=== PATIENT | female | born 1985 | race Caucasian/White ===

== ENCOUNTER 2017-08-07 22:50 | Emergency (ER) | payer SELFPAY ==
[~2017-08-07] VITALS: Ht 154.9 cm; Wt 72.6 kg
[~2017-08-07 22:50] MED LIST: ALBU2.5V4 IH; ALPR.25T; AZIT-21 PO; BENZ100C18 PO; CEPH-38 PO; CEPH500C PO; CIPR-225 PO; CIPR500T78 PO; CPR250T PO; CYCL10TA9 PO; D-ME118S7 PO; DEPO PROVERA; DEPOPROVERA; DIPH50CA PO; Flexeril PO; HYDR1CAP2 PO; METR250T PO; METR500T PO; NAPR500T PO; NAPR500T3 PO; NAPR550T PO; NYST1000 PO; OMG1KC PO; ONDAN4ODT PO; ORTHOTRICYCLINE; PANT40TA2 PO; PERM60CR4 TP; PHEN-640 PO; PNT40TEC PO; POLY119P PO; PRD20T PO; SCR1T PO; SUCR1TAB36 PO; SULF-222 PO; SULF1TAB35 PO; SULF1TAB38 PO; TRAM50TA2 PO; TRM50T PO; ZLP5T PO
--- NOTE | 2017-08-07 23:13 | ED Back Pain ---
General Chief Complaint: Back Problems Stated Complaint: LOW BACK PAIN Source of Information: Patient Exam Limitations: No Limitations History of Present Illness Time Seen by Provider: 23:12 Initial Comments To ER with several months of bilateral flank pain, radiates down the back of her legs, urinary incontinence when laughing or sneezing, 1 week of whitish vaginal discharge. Nausea without vomiting. States that she should be starting her menstrual cycle soon. Denies any abdominal pain. Timing/Duration: Getting Worse, Intermittent Severity: Moderate Associated Symptoms: lower back pain Allergies and Home Medications Allergies Coded Allergies: Sulfa (Sulfonamide Antibiotics) (Verified Allergy, Mild, 06/13/16) codeine (Unverified Allergy, Unknown, 04/11/14) hydrocodone (Unverified Allergy, Unknown, 04/11/14) meperidine HCl (Unverified Allergy, Unknown, 04/11/14) morphine (Verified Allergy, Unknown, 05/02/11) Home Medications Ciprofloxacin HCl 500 Mg Tablet, 500 MG PO BID, #20 Prescribed by: MINERVA SCHWAB on 06/14/16 0029 Cyclobenzaprine HCl 10 Mg Tablet, 10 MG PO Q8H, #15 Prescribed by: MINERVA SCHWAB on 06/14/16 0029 Cyclobenzaprine HCl 5 Mg Tablet, 5 MG PO TID PRN for PAIN-MODERATE, #20 Prescribed by: BLAZE CHINCHILLA on 08/07/17 2331 Pantoprazole Sodium 40 Mg Tablet.dr, 40 MG PO DAILY, #14 Prescribed by: BLAZE CHINCHILLA on 08/08/16 1311 Phenazopyridine HCl 200 Mg Tablet, 1 TAB PO TID, #15 Prescribed by: MINERVA SCHWAB on 06/14/16 0029 Sucralfate 1 Gm Tablet, 1 GM PO ACHS, #40 Prescribed by: BLAZE CHINCHILLA on 08/08/16 1311 Sulfamethoxazole/Trimethoprim 1 Each Tablet, 1 EACH PO BID, #14 Prescribed by: TIMUR GANN on 04/05/16 0053 Constitutional: see HPI, No chills, No fever EENTM: see HPI Respiratory: no symptoms reported Cardiovascular: no symptoms reported Genitourinary: incontinence Musculoskeletal: see HPI, back pain Skin: no symptoms reported Psychiatric/Neurological: No Symptoms Reported Past [id number]-Zkqmrm Hx Patient Social History Recent Foreign Travel: No Contact w/Someone Who Travel: No Immunizations Up To Date Tetanus Booster (TDap): Less than 5yrs Seasonal Allergies Seasonal Allergies: No Surgeries Surgeries: Section, Gallbladder, 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 Respiratory Respiratory Disorders: Asthma Cardiovascular Cardiac Disorders: Chronic Edema/Swelling Neurological Neurological Disorders: Headaches /Migraines 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 System Hx 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 Disorders: No Sexually Transmitted Disease: Yes (TRICH) STAFF INTERNIST OFFICE BASED ONLY History: 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 Genitourinary Genitourinary Disorders: Kidney Stones, UTI-Chronic Gastrointestinal Gastrointestinal Disorders: Gastroesophageal Reflux, Chronic Constipation Physical Exam Vital Signs Capillary Refill : General Appearance: No Apparent Distress, WD/WN HEENT: PERRL/EOMI, TMs Normal Neck: Full Range of Motion, Normal Inspection Cardiovascular: Regular Rate, Rhythm, Normal Peripheral Pulses Respiratory: Normal Breath Sounds, No Accessory Muscle Use, No Respiratory Distress Gastrointestinal: Normal Bowel Sounds, No Pulsatile Mass, Non Tender, Soft Genital/Rectal: Other (pelvic exam done with DON Howe at the bedside. Minimal amount of bloody discharge from the cervix. No cervical motion tenderness. ) Back: Normal Inspection, CVA Tenderness (L), CVA Tenderness (R) Extremity: Normal Capillary Refill, Normal Inspection Neurologic/Psychiatric: Alert, Oriented x3 Skin: Normal Color, Warm/Dry Progress/Results/Core Measures Results/Orders Lab Results Laboratory Tests Test 08/07/17 22:59 08/07/17 23:09 Range/Units White Blood Count 12.1 H 4.3-11.0 10^3/uL Red Blood Count 4.79 4.35-5.85 10^6/uL Hemoglobin 13.9 11.5-16.0 G/DL Hematocrit 41 35-52 % Mean Corpuscular Volume 86 80-99 FL Mean Corpuscular Hemoglobin 29 25-34 PG Mean Corpuscular Hemoglobin Concent 34 32-36 G/DL Red Cell Distribution Width 13.2 10.0-14.5 % Platelet Count 237 130-400 10^3/uL Mean Platelet Volume 10.5 H 7.4-10.4 FL Neutrophils (%) (Auto) 49 42-75 % Lymphocytes (%) (Auto) 37 12-44 % Monocytes (%) (Auto) 10 0-12 % Eosinophils (%) (Auto) 3 0-10 % Basophils (%) (Auto) 1 0-10 % Neutrophils # (Auto) 6.0 1.8-7.8 X 10^3 Lymphocytes # (Auto) 4.5 H 1.0-4.0 X 10^3 Monocytes # (Auto) 1.2 H 0.0-1.0 X 10^3 Eosinophils # (Auto) 0.4 H 0.0-0.3 10^3/uL Basophils # (Auto) 0.1 0.0-0.1 10^3/uL Urine Color YELLOW Urine Clarity SLIGHTLY CLOUDY Urine pH 6 5-9 Urine Specific [place] 1.025 H 1.016-1.022 Urine Protein 1+ H NEGATIVE Urine Glucose (UA) NEGATIVE NEGATIVE Urine Ketones NEGATIVE NEGATIVE Urine Nitrite NEGATIVE NEGATIVE Urine Bilirubin NEGATIVE NEGATIVE Urine Urobilinogen 1 NORMAL MG/DL Urine Leukocyte Esterase NEGATIVE NEGATIVE Urine RBC (Auto) 3+ H NEGATIVE Urine RBC 5-10 H /HPF Urine WBC 0-2 /HPF Urine Squamous Epithelial Cells 25-50 H /HPF Urine Crystals NONE /LPF Urine Bacteria FEW H /HPF Urine Casts NONE /LPF Urine Mucus NEGATIVE /LPF Urine Culture Indicated NO My Orders Orders - BLAZE CHINCHILLA APRN Ua Culture If Indicated (08/07/17 22:58) Urine Bedside (08/07/17 22:58) Cbc With Automated Diff (08/07/17 23:07) Basic Metabolic Panel (08/07/17 23:07) Saline Lock/Iv-Start (08/07/17 23:07) Ketorolac Injection (Toradol Injection) (08/07/17 23:15) Ns Iv 1000 Ml (Sodium Chloride 0.9%) (08/07/17 23:15) Wet Prep (08/07/17 23:07) Neisseria Gonorrhea Dna (08/07/17 23:07) Chlamydia Dna (08/07/17 23:07) Genital Culture (08/07/17 23:07) Medications Given in ED Current Medications Medications Dose Ordered Sig/Lolis Route Start Time Stop Time Status Last Admin Dose Admin Ketorolac Tromethamine 30 mg ONCE ONCE IVP 08/07/17 23:15 08/07/17 23:16 DC 08/07/17 23:16 30 MG Departure Impression Impression: Primary Impression: Low back pain Disposition: 01 HOME, SELF-CARE Condition: Stable Departure-Patient Inst. Decision time for Depature: 23:30 Referrals: NO,LOCAL PHYSICIAN (PCP/Family) Primary Care Physician Patient Instructions: Low Back Pain (DC) Add. Discharge Instructions: 1. Follow-up with your regular doctor next week. If you do not have one a list of local physicians has been provided 2. Return to ER for any concerns 3. All discharge instructions reviewed with patient and/or family. Voiced understanding. 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
[2017-08-07 23:15] LABS: BASOPHILS # (AUTO) 0.1 10^3/uL (0.0-0.1); BASOPHILS % (AUTO) 1 % (0-10); BILIRUBIN,URINE NEGATIVE (NEGATIVE); EOSINOPHILS # (AUTO) 0.4 10^3/uL (0.0-0.3); EOSINOPHILS % (AUTO) 3 % (0-10); KETONES,URINE NEGATIVE (NEGATIVE); LEUKOCYTE ESTERASE ,URINE NEGATIVE (NEGATIVE); LYMPHOCYTES # (AUTO) 4.5 X 10^3 (1.0-4.0); LYMPHOCYTES % (AUTO) 37 % (12-44); MEAN CORPUSCULAR HEMOGLOBIN 29 PG (25-34); MEAN CORPUSCULAR HGB CONC 34 G/DL (32-36); MEAN CORPUSCULAR VOLUME 86 FL (80-99); MEAN PLATELET VOLUME 10.5 FL (7.4-10.4); MONOCYTES # (AUTO) 1.2 X 10^3 (0.0-1.0); MONOCYTES % (AUTO) 10 % (0-12); NEUTROPHILS % (AUTO) 49 % (42-75); NITRITE,URINE NEGATIVE (NEGATIVE); PH,URINE 6 (5-9); PLATELET COUNT 237 10^3/uL (130-400); PROTEIN,URINE 1+ (NEGATIVE); RED BLOOD COUNT 4.79 10^6/uL (4.35-5.85); RED CELL DISTRIBUTION WIDTH 13.2 % (10.0-14.5); UROBILINOGEN,URINE 1 MG/DL (NORMAL); WHITE BLOOD COUNT 12.1 10^3/uL (4.3-11.0)
[2017-08-07] MEDS ORDERED: KETOROLAC 30 MG/ML VIAL IVP ONE (23:15)
[2017-08-07] MEDS ORDERED: NS IV 1000 ML 1,000 ML IV SCH (23:15)
[2017-08-07 23:26] LABS: SQUAMOUS EPITHELIAL CELL,UR 25-50 /HPF; WBC,URINE 0-2 /HPF
[2017-08-07] MEDS ORDERED: CYCL5TAB PO (23:31)
[2017-08-07 23:32] LABS: ANION GAP 10 MMOL/L (5-14); BLOOD UREA NITROGEN 13 MG/DL (7-18); BUN/CREATININE RATIO 20; CALCIUM 9.5 MG/DL (8.5-10.1); CARBON DIOXIDE 23 MMOL/L (21-32); CHLORIDE 105 MMOL/L (98-107); CREATININE SERUM 0.64 MG/DL (0.60-1.30); GFR ESTIMATED > 60; GLUCOSE 90 MG/DL (70-105); POTASSIUM 3.6 MMOL/L (3.6-5.0); SODIUM 138 MMOL/L (135-145)
[2017-08-07 23:53] VITALS: BP 132/86
== END 2017-08-07 23:53 | disposition home or self-care (01) ==
LOC: EDUNIT# 22:50 → ER 22:52
DX: M54.5 Low back pain (principal); K21.9 Gastro-esophageal reflux disease without esophagitis; G43.909 Migraine, unspecified, not intractable, without status migrainosus; Z87.442 Personal history of urinary calculi; Z98.51 Tubal ligation status; Z87.59 Personal history of other complications of pregnancy, childbirth and the puerperium
CPT/HCPCS: 36415; 80048; 81000; 84703; 85025; 87070; 87210; 87491; 87591

== ENCOUNTER 2018-02-04 20:28 | Emergency (ER) | payer SELFPAY ==
[~2018-02-04] VITALS: Ht 157.5 cm; Wt 70.3 kg
[~2018-02-04 20:28] MED LIST changes: +CYCL5TAB PO; +NAPR-1071 PO; +NAPR-915 PO; -NAPR500T PO; -NAPR500T3 PO
--- OUTSIDE RECORDS SUMMARY | 2018-02-04 20:34 | XMS REPORT ---
Author Author JABIER MACARIO Organization [facility] Address [address] [place] [address] Care Team Providers Care Mechanical Drafter Name Role Phone JABIER MACARIO Unavailable PROBLEMS Type Condition ICD9-CM Code ICQ43-OD Code Onset Dates Condition Status SNOMED Code Problem Adjustment disorder with depressed mood 309.0 Active 37990511 Problem Edema, unspecified type R60.9 Active 196934742 Problem Gastroesophageal reflux disease, esophagitis presence not specified K21.9 Active 476896791 Problem Lumbago with sciatica, unspecified side M54.40 Active 436679541 Problem Other chronic pain G89.29 Active 31428571 Problem Family history of diabetes mellitus Z83.3 Active 519483020 Problem Nocturia more than twice per night R35.1 Active 129243029 Problem Chronic tension-type headache, intractable G44.221 Active 510615364 Problem Weight gain R63.5 Active 9671595 ALLERGIES Substance Reaction Event Type Date Status Morphine Sulfate seizure Drug Allergy Aug, Active Demerol rash Drug Allergy Aug, Active SOCIAL HISTORY No smoking Hx information available PLAN OF CARE Activity Details Follow Up 1 Week, prn Reason: VITAL SIGNS Height 61 in 2016-09-26 Weight 161.04 lbs 2016-09-26 Temperature 97.6 degrees Fahrenheit 2016-09-26 Heart Rate 84 bpm 2016-09-26 Respiratory Rate 18 2016-09-26 BMI 30.42 kg/m2 2016-09-26 Blood pressure systolic 122 mmHg 2016-09-26 Blood pressure diastolic 68 mmHg 2016-09-26 MEDICATIONS Medication Instructions Dosage Frequency Start Date End Date Duration Status Metronidazole 500 MG Orally once 4 tablet Aug, Sep, 10 day(s) Active RESULTS Name Result Date Reference Range TRICHOMONAS (IN HOUSE) 2016-09-26 TRICHOMONAS Positive Control + Lot # [id number] Exp date 2017-04 UA LONG DIP (IN HOUSE) 2016-09-26 Lot # [id number] Exp date 2016-11 Clarity clear Color yellow Odor none GLU negative SYLVIA negative KET negative SG >1.030 BLO 2+ pH 6.0 Protein negative URO 0.2 NIT negative JOSE negative Lot # [id number] Exp date 2017-05 BACTERIAL VAGINOSIS (IN HOUSE) 2016-09-26 RESULTS negative Control + Lot # [id number] Exp date 2017-06 CULTURE, GENITAL 2016-09-26 Genital Culture, Routine Final report Result 1 GC/CHLAM PROBE (STATE) 2016-09-26 CHLAMYDIA GC PROCEDURES Procedure Date Ordered Related Diagnosis Body Site No Charge Sep 26, 2016 QUICK VAG, DNA, DIR PROBE Sep 26, 2016 URINALYSIS, AUTO, W/O SCOPE Sep 26, 2016 LAB NOT BILLED BY [facility] Sep 26, 2016 Office Visit, Est Pt., Level 3 Sep 26, 2016 IMMUNIZATIONS No Known Immunizations
--- OUTSIDE RECORDS SUMMARY | 2018-02-04 20:35 | XMS REPORT ---
Author Author JABIER MACARIO Organization [facility] Address [address] [place] [address] Care Team Providers Care Mop Handle Assembler Name Role Phone JABIER MACARIO Unavailable PROBLEMS Type Condition ICD9-CM Code [id number] Code Onset Dates Condition Status SNOMED Code Problem Adjustment disorder with depressed mood 309.0 Active 32103802 Problem Nocturia more than twice per night R35.1 Active 698726778 Problem Gastroesophageal reflux disease, esophagitis presence not specified K21.9 Active 737634687 Problem Chronic tension-type headache, intractable G44.221 Active 914578350 Problem Other chronic pain G89.29 Active 63698067 Problem Weight gain R63.5 Active 1862702 Problem Edema, unspecified type R60.9 Active 688236555 Problem Lumbago with sciatica, unspecified side M54.40 Active 697755403 Problem Family history of diabetes mellitus Z83.3 Active 895518570 ALLERGIES Substance Reaction Event Type Date Status SulfADIAZINE Unknown Drug Allergy Nov, Active Morphine Sulfate seizure Drug Allergy Nov, Active Demerol rash Drug Allergy Nov, Active SOCIAL HISTORY No smoking Hx information available PLAN OF CARE Activity Details Follow Up 1 Year, prn Reason: VITAL SIGNS Height 61 in 2016-12-01 Weight 161 lbs 2016-12-01 Temperature 98.0 degrees Fahrenheit 2016-12-01 Heart Rate 80 bpm 2016-12-01 Respiratory Rate 18 2016-12-01 BMI 30.42 kg/m2 2016-12-01 Blood pressure systolic 118 mmHg 2016-12-01 Blood pressure diastolic 78 mmHg 2016-12-01 MEDICATIONS Medication Instructions Dosage Frequency Start Date End Date Duration Status Hydrochlorothiazide 25 MG Orally Once a day 1 tablet 24h Nov, 30 day(s) Active Protonix 40 mg Orally Once a day 1 tablet 24h Oct, 30 day(s) Active Aleve 220 MG Orally every 12 hrs 1 tablet as needed 12h Active RESULTS Name Result Date Reference Range A1C (IN HOUSE) 2016-12-01 A1C IN HOUSE 5.2 4.3 - 5.6 % Previous A1c N/A Lot [id number] Exp date 08/2018 UA LONG DIP (IN HOUSE) 2016-12-01 Lot # [id number] Exp date 10/2017 Clarity clear Color orange Odor none GLU Neg SYLVIA Neg KET Neg SG 1.025 BLO 2+ pH 6.0 Protein Neg URO 1.0 NIT Neg JOSE Neg Lot # Exp date PROCEDURES Procedure Date Ordered Related Diagnosis Body Site URINALYSIS, AUTO, W/O SCOPE Dec 01, 2016 GLYCATED HEMOGLOBIN TEST Dec 01, 2016 Office Visit, Est Pt., Level 4 Dec 01, 2016 IMMUNIZATIONS No Known Immunizations
--- OUTSIDE RECORDS SUMMARY | 2018-02-04 20:35 | XMS REPORT ---
Author Author JABIER MACARIO Organization [facility] Address [address] [place] [address] Care Team Providers Care Senior Sustainability Consultant Name Role Phone RENALDO JABEIR Unavailable PROBLEMS Type Condition ICD9-CM Code [id number] Code Onset Dates Condition Status SNOMED Code Problem Adjustment disorder with depressed mood 309.0 Active 91289808 Problem Nocturia more than twice per night R35.1 Active 705446434 Problem Gastroesophageal reflux disease, esophagitis presence not specified K21.9 Active 736391006 Problem Chronic tension-type headache, intractable G44.221 Active 210272614 Problem Other chronic pain G89.29 Active 96629347 Problem Weight gain R63.5 Active 4207338 Problem Edema, unspecified type R60.9 Active 920027364 Problem Lumbago with sciatica, unspecified side M54.40 Active 458161962 Problem Family history of diabetes mellitus Z83.3 Active 049441169 ALLERGIES Substance Reaction Event Type Date Status SulfADIAZINE Unknown Drug Allergy Oct, Active Morphine Sulfate seizure Drug Allergy Oct, Active Demerol rash Drug Allergy Oct, Active SOCIAL HISTORY No smoking Hx information available PLAN OF CARE VITAL SIGNS MEDICATIONS Medication Instructions Dosage Frequency Start Date End Date Duration Status Protonix 40 MG Orally Once a day 1 tablet 24h Oct, 30 day(s) Active RESULTS No Results PROCEDURES No Known procedures IMMUNIZATIONS No Known Immunizations
--- OUTSIDE RECORDS SUMMARY | 2018-02-04 20:35 | XMS REPORT ---
Author Author JABIER MACARIO Organization [facility] Address [address] [place] [address] Care Team Providers Care Terrazzo Polisher Helper Name Role Phone JENNIFER MACARIONETTE Unavailable PROBLEMS Type Condition ICD9-CM Code ZLP26-MY Code Onset Dates Condition Status SNOMED Code Problem Adjustment disorder with depressed mood 309.0 Active 88680075 Problem Nocturia more than twice per night R35.1 Active 798357660 Problem Gastroesophageal reflux disease, esophagitis presence not specified K21.9 Active 440005451 Problem Chronic tension-type headache, intractable G44.221 Active 217937590 Problem Other chronic pain G89.29 Active 53077846 Problem Weight gain R63.5 Active 7281003 Problem Edema, unspecified type R60.9 Active 402838407 Problem Lumbago with sciatica, unspecified side M54.40 Active 733781865 Problem Family history of diabetes mellitus Z83.3 Active 801069895 ALLERGIES Unknown Allergies SOCIAL HISTORY No smoking Hx information available PLAN OF CARE VITAL SIGNS MEDICATIONS Unknown Medications RESULTS Name Result Date Reference Range CBC 2016-12-05 WBC 9.5 3.4-10.8 RBC 4.92 3.77-5.28 Hemoglobin 14.2 11.1-15.9 Hematocrit 42.0 34.0-46.6 MCV 85 79-97 MCH 28.9 26.6-33.0 MCHC 33.8 31.5-35.7 RDW 13.5 12.3-15.4 Platelets 245 150-379 Neutrophils 60 Lymphs 29 Monocytes 7 Eos 3 Basos 1 Neutrophils (Absolute) 5.8 1.4-7.0 Lymphs (Absolute) 2.7 0.7-3.1 Monocytes(Absolute) 0.7 0.1-0.9 Eos (Absolute) 0.3 0.0-0.4 Baso (Absolute) 0.1 0.0-0.2 Immature Granulocytes 0 Immature Grans (Abs) 0.0 0.0-0.1 LIPID PANEL 2016-12-05 Cholesterol, Total 182 100-199 Triglycerides 66 0-149 HDL Cholesterol 45 >39 VLDL Cholesterol Osmany 13 5-40 LDL Cholesterol Calc 124 0-99 Comment: CMP 2016-12-05 Glucose, Serum 93 65-99 BUN 11 6-20 Creatinine, Serum 0.56 0.57-1.00 eGFR If NonAfricn Am 123 >59 eGFR If Africn Am 142 >59 BUN/Creatinine Ratio 20 8-20 Sodium, Serum 138 134-144 Potassium, Serum 4.1 3.5-5.2 Chloride, Serum 100 96-106 Carbon Dioxide, Total 22 18-29 Calcium, Serum 9.3 8.7-10.2 Protein, Total, Serum 6.6 6.0-8.5 Albumin, Serum 4.0 3.5-5.5 Globulin, Total 2.6 1.5-4.5 A/G Ratio 1.5 1.1-2.5 Bilirubin, Total 0.4 0.0-1.2 Alkaline Phosphatase, S 87 39-117 AST (SGOT) 10 0-40 ALT (SGPT) 8 0-32 PROCEDURES Procedure Date Ordered Related Diagnosis Body Site [facility] Dec 05, 2016 VENIPUNCT, ROUTINE* Dec 05, 2016 IMMUNIZATIONS No Known Immunizations
--- OUTSIDE RECORDS SUMMARY | 2018-02-04 20:36 | XMS REPORT ---
Author Author JABIER MACARIO Organization [facility] Address [address] [place] [address] Care Team Providers Care Inside Sales Coordinator Name Role Phone JENNIFER MACARIONETTE Unavailable PROBLEMS Type Condition ICD9-CM Code [id number] Code Onset Dates Condition Status SNOMED Code Problem Adjustment disorder with depressed mood 309.0 Active 61758358 Problem Nocturia more than twice per night R35.1 Active 083188626 Problem Gastroesophageal reflux disease, esophagitis presence not specified K21.9 Active 120970923 Problem Chronic tension-type headache, intractable G44.221 Active 329825303 Problem Other chronic pain G89.29 Active 85450317 Problem Weight gain R63.5 Active 4998389 Problem Edema, unspecified type R60.9 Active 256714323 Problem Lumbago with sciatica, unspecified side M54.40 Active 871154993 Problem Family history of diabetes mellitus Z83.3 Active 263060441 ALLERGIES No Information SOCIAL HISTORY Never Assessed PLAN OF CARE VITAL SIGNS MEDICATIONS Unknown Medications RESULTS Name Result Date Reference Range Xray : Spine, Lumbar 2-3 views (IN HOUSE) 2016-12-07 PROCEDURES Procedure Date Ordered Result Body Site X-RAY EXAM OF LOWER SPINE Dec 07, 2016 IMMUNIZATIONS No Known Immunizations MEDICAL (GENERAL) HISTORY Type Description Date Surgical History 10/08/2001 Surgical History 10/06/2003 Surgical History 07/18/2005 Surgical History 05/12/2008 Surgical History 09/27/2010 Surgical History biateral tubal ligation 08/16/2011 Surgical History cholysystectomy 08/16/2011 Hospitalization History Surgery(s)/Childbirth(s) only
--- OUTSIDE RECORDS SUMMARY | 2018-02-04 20:36 | XMS REPORT ---
Author Author JABIER MACARIO Organization [facility] Address [address] [place] [address] Care Team Providers Care Hotel Office Manager Name Role Phone JABIER MACARIO Unavailable PROBLEMS Type Condition ICD9-CM Code [id number] Code Onset Dates Condition Status SNOMED Code Problem Adjustment disorder with depressed mood 309.0 Active 05418564 Problem Nocturia more than twice per night R35.1 Active 764439757 Problem Gastroesophageal reflux disease, esophagitis presence not specified K21.9 Active 199478817 Problem Chronic tension-type headache, intractable G44.221 Active 945507442 Problem Other chronic pain G89.29 Active 26376042 Problem Weight gain R63.5 Active 4768053 Problem Edema, unspecified type R60.9 Active 873158942 Problem Lumbago with sciatica, unspecified side M54.40 Active 703285776 Problem Family history of diabetes mellitus Z83.3 Active 798979349 ALLERGIES Unknown Allergies SOCIAL HISTORY No smoking Hx information available PLAN OF CARE VITAL SIGNS MEDICATIONS Unknown Medications RESULTS No Results PROCEDURES No Known procedures IMMUNIZATIONS No Known Immunizations
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
--- NOTE | 2018-02-04 22:02 | Diagnostic Imaging Report ---
PROCEDURE: CT head without contrast. TECHNIQUE: Multiple contiguous axial images were obtained through the brain without the use of intravenous contrast. INDICATION: Left-sided numbness EXAMINATION: CT brain without contrast 02/04/2018 COMPARISONS: No recent FINDINGS: Multiple axial images of the brain without contrast. There is no evidence for acute hemorrhage or infarct. There is no mass, mass effect, midline shift or hydrocephalus. The paranasal sinuses and mastoid air cells demonstrate no acute abnormality. IMPRESSION: No acute intracranial process. Dictated by: Dictated on workstation # [id number]
[2018-02-04] MEDS ORDERED: FLUT9.9S NS (22:53)
[2018-02-04 23:02] VITALS: BP 113/60
== END 2018-02-04 22:59 | disposition home or self-care (01) ==
LOC: EDUNIT# 20:28 → ER 20:30
DX: G50.9 Disorder of trigeminal nerve, unspecified (principal); K21.9 Gastro-esophageal reflux disease without esophagitis; G43.909 Migraine, unspecified, not intractable, without status migrainosus; F17.210 Nicotine dependence, cigarettes, uncomplicated; Z87.442 Personal history of urinary calculi; Z87.59 Personal history of other complications of pregnancy, childbirth and the puerperium; Z98.51 Tubal ligation status; Z88.2 Allergy status to sulfonamides; Z88.6 Allergy status to analgesic agent; Z88.8 Allergy status to other drugs, medicaments and biological substances
CPT/HCPCS: 70450

== ENCOUNTER 2018-12-04 21:19 | Emergency (ER) | payer OTHER ==
[~2018-12-04] VITALS: Ht 154.9 cm; Wt 74.8 kg
[~2018-12-04 21:19] MED LIST changes: +FLUT9.9S NS
[2018-12-04] MEDS ORDERED: PANT40TA3 (21:29)
[2018-12-04 21:37] LABS: BILIRUBIN,URINE NEGATIVE (NEGATIVE); CLARITY,URINE CLEAR; COLOR,URINE YELLOW; GLUCOSE, URINE (UA) NEGATIVE (NEGATIVE); KETONES,URINE NEGATIVE (NEGATIVE); LEUKOCYTE ESTERASE ,URINE NEGATIVE (NEGATIVE); NITRITE,URINE NEGATIVE (NEGATIVE); PH,URINE 7 (5-9); PROTEIN,URINE NEGATIVE (NEGATIVE); UROBILINOGEN,URINE NORMAL (NORMAL)
[2018-12-04 21:51] LABS: BACTERIA,URINE FEW /HPF; RBC,URINE 0-2 /HPF; WBC,URINE RARE /HPF
[2018-12-04] MEDS ORDERED: RX-TRAMADOL 50 MG (ULTRAM) TAB PPK#4 PO STA (22:32)
--- NOTE | 2018-12-04 22:36 | ED GI ---
General Chief Complaint: Abdominal/GI Problems Stated Complaint: R SIDE PAIN Nursing Triage Note: intermittant rlq abdominal pain, diarrhea x 5 days. Sepsis Screen: No Definite Risk History of Present Illness Date Seen by Provider: Dec 04, 2018 Time Seen by Provider: 21:30 Initial Comments 33-year-old female presents for right lower quadrant and flank pain. She reports the symptoms being present since 11/29/18. She was evaluated 3 days ago at [facility] for the RLQ pain and told she had pharyngitis and was given an IM injection. She has a history of endometriosis. She denies UTI symptoms. She has been taking Tylenol and ibuprofen with control of her symptoms. Timing/Duration: 5-6 Days Severity/Quality: Mild Location: RLQ Radiation: Flank Activities at Onset: None Associated Symptoms: Denies Symptoms Allergies and Home Medications Allergies Coded Allergies: Sulfa (Sulfonamide Antibiotics) (Verified Allergy, Mild, 06/13/16) codeine (Unverified Allergy, Unknown, 04/11/14) hydrocodone (Unverified Allergy, Unknown, 04/11/14) meperidine HCl (Unverified Allergy, Unknown, 04/11/14) morphine (Verified Allergy, Unknown, 05/02/11) Patient Home Medication List Home Medication List Reviewed: Yes Review of Systems Review of Systems Constitutional: no symptoms reported Gastrointestinal: See HPI, Abdominal Pain Genitourinary: See HPI, Flank Pain All Other Systems Reviewed Negative Unless Noted: Yes Past Vsqrigj-Asentt-Ybmjwv Hx Past Med/Social Hx: Reviewed Nursing Past Med/Soc Hx Patient Social History Alcohol Use: Denies Use Recreational Drug Use: No Smoking Status: Current Everyday Smoker Type Used: Cigarettes 2nd Hand Smoke Exposure: Yes Recent Foreign Travel: No Contact w/Someone Who Travel: No Recent Infectious Disease Expo: No Recent Hopitalizations: No Immunizations Up To Date Tetanus Booster (TDap): Less than 5yrs Seasonal Allergies Seasonal Allergies: Yes Past Medical History Surgeries: Yes Section, Gallbladder, 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 Respiratory: Yes Asthma Cardiac: Yes Chronic Edema/Swelling Neurological: Yes Headaches /Migraines : No 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 oz. 74.075476nv; 29.09 BMI Method:Stated General Appearance: WD/WN, no apparent distress HEENT: PERRL/EOMI, normal ENT inspection, TMs normal, pharyngeal erythema ( trace); No tonsillar exudate Neck: non-tender, full range of motion, supple, normal inspection, lymphadenopathy (R), lymphadenopathy (L) Respiratory: chest non-tender, lungs clear, normal breath sounds Cardiovascular: normal peripheral pulses, regular rate, rhythm Gastrointestinal: normal bowel sounds, soft; No guarding, No rebound; tenderness (tenderness in the very distal right lower quadrant, right flank and hip. Negative psoas, heel tap and obturator sign.) Extremities: normal range of motion, non-tender, normal inspection, normal capillary refill Back: normal inspection, no CVA tenderness, no vertebral tenderness Neurologic/Psychiatric: no motor/sensory deficits, alert, normal mood/affect, oriented x 3 Skin: normal color, warm/dry Progress/Results/Core Measures Results/Orders Lab Results Laboratory Tests Test 12/04/18 21:30 Range/Units Urine Color YELLOW Urine Clarity CLEAR Urine pH 7 5-9 Urine Specific Narvon 1.010 L 1.016-1.022 Urine Protein NEGATIVE NEGATIVE Urine Glucose (UA) NEGATIVE NEGATIVE Urine Ketones NEGATIVE NEGATIVE Urine Nitrite NEGATIVE NEGATIVE Urine Bilirubin NEGATIVE NEGATIVE Urine Urobilinogen NORMAL NORMAL MG/DL Urine Leukocyte Esterase NEGATIVE NEGATIVE Urine RBC (Auto) 3+ H NEGATIVE Urine RBC 0-2 /HPF Urine WBC RARE /HPF Urine Squamous Epithelial Cells 5-10 /HPF Urine Crystals NONE /LPF Urine Bacteria FEW H /HPF Urine Casts NONE /LPF Urine Mucus NEGATIVE /LPF Urine Culture Indicated NO My Orders Orders - MAXI PERLA Ua Culture If Indicated (12/04/18 21:19) Tramadol Tablet (Ultram Tablet) (12/04/18 21:56) Rx-Tramadol Hcl (Rx-Ultram) (12/04/18 22:32) Vital Signs/I&O 12/04/18 12/04/18 21:23 22:45 Temp 96.5 97.0 Pulse 91 88 Resp 18 18 B/P (MAP) 127/64 (85) 125/62 (83) Pulse Ox 98 99 O2 Delivery Room Air Room Air Blood Pressure Mean: 85 Urine -Bedside: Negative Progress Progress Note : Time: 21:30 Progress Note Initial evaluation completed, recommended UA. 2200 UA essentially normal. We'll give tramadol 50 mg by mouth for pain. No ultrasound services are available at this time. 223 patient reports improvement in her symptoms after the tramadol, since she is afebrile and has no rebound tenderness a CT is not warranted at this time. Explained to the patient that it could be mesenteric adenitis from her recent upper respiratory infection or endometriosis with ovarian cysts. Discussed options and her treatment at this point and she is comfortable returning home with follow-up through Dr. Gordon and possible referral to ultrasound tomorrow. Discharge instructions and return precautions reviewed with her. If her symptoms worsen she understands to return to the emergency department. Departure Impression Primary Impression: Pain, abdominal, RLQ Disposition: HOME, SELF-CARE Condition: Improved Departure-Patient Inst. Decision time for Depature: 22:05 Referrals: [facility] (PCP/Family) Primary Care Physician Patient Instructions: Acute Abdomen (Belly Pain), Adult (DC), Ovarian Cyst (DC) Add. Discharge Instructions: Activity as tolerated. Increase water intake. If symptoms are not improving, call Dr. Gordon tomorrow for reevaluation and consideration of an ultrasound. If symptoms worsen significantly, return to emergency department. You may take the Ultram every 6 hours. Additional pain can be managed with Tylenol 625 mg alternating with ibuprofen 600 mg. every 4 hours All discharge instructions reviewed with patient and/or family. Voiced understanding. MAXI PERLA Dec 04, 2018 22:36
[2018-12-04 22:45] VITALS: BP 125/62
== END 2018-12-04 22:43 | disposition home or self-care (01) ==
LOC: EDUNIT# 21:19 → ER 21:20
DX: R10.31 Right lower quadrant pain (principal); J45.909 Unspecified asthma, uncomplicated; G43.909 Migraine, unspecified, not intractable, without status migrainosus; K21.9 Gastro-esophageal reflux disease without esophagitis; F17.210 Nicotine dependence, cigarettes, uncomplicated; Z87.442 Personal history of urinary calculi; Z87.19 Personal history of other diseases of the digestive system; Z98.890 Other specified postprocedural states; Z98.51 Tubal ligation status; Z88.2 Allergy status to sulfonamides; Z88.5 Allergy status to narcotic agent; Z88.8 Allergy status to other drugs, medicaments and biological substances; Z87.448 Personal history of other diseases of urinary system
CPT/HCPCS: 81000; 84703; 99283

== ENCOUNTER 2019-07-10 19:59 | Emergency (ER) | payer OTHER ==
[~2019-07-10] VITALS: Ht 154 cm; Wt 72.0 kg
[~2019-07-10 19:59] MED LIST changes: +PANT40TA3
[2019-07-10] MEDS ORDERED: D-ME118S33 PO (20:20)
[2019-07-10] MEDS ORDERED: RT-ALBUINH IH (20:20)
[2019-07-10] MEDS ORDERED: RX-ALBUTEROL INHALER (PROAIR) 8.5 GM IH STA (20:20)
--- NOTE | 2019-07-10 20:20 | ED Cough/URI ---
General Chief Complaint: Cough/Cold/Flu Symptoms Stated Complaint: COUGH, COLD LIKE SYMPTOMS Nursing Triage Note: ARRIVED VIA AMB TO TRIAGE WITH COMPLAINTS OF A HEAD COLD X1 WEEK. Sepsis Screen: No Definite Risk Source: patient Exam Limitations: no limitations History of Present Illness Date Seen by Provider: Jul 10, 2019 Time Seen by Provider: 20:18 Initial Comments Nonproductive cough and rhinorrhea for 2 weeks Timing/Duration: other Severity/Quality: moderate Associated Symptoms: cough Allergies and Home Medications Allergies Coded Allergies: Sulfa (Sulfonamide Antibiotics) (Verified Allergy, Mild, 06/13/16) codeine (Unverified Allergy, Unknown, 04/11/14) hydrocodone (Unverified Allergy, Unknown, 04/11/14) meperidine HCl (Unverified Allergy, Unknown, 04/11/14) morphine (Verified Allergy, Unknown, 05/02/11) Home Medications Albuterol Sulfate 1 Puff Puff, 2 PUFF IH Q4H PRN for WHEEZING 1 PUFF = 90 MCG Prescribed by: BLAZE CHINCHILLA on 07/10/192019 D-Methorphan Hb/P-Epd HCl/Bpm 118 Ml Syrup, 5 ML PO Q4H PRN for CONGESTION Prescribed by: BLAZE CHINCHILLA on 07/10/192019 Patient Home Medication List Home Medication List Reviewed: Yes Review of Systems Review of Systems Constitutional: see HPI, chills EENTM: see HPI, nose congestion Respiratory: see HPI, cough Cardiovascular: no symptoms reported Genitourinary: no symptoms reported Musculoskeletal: no symptoms reported Skin: no symptoms reported Psychiatric/Neurological: No Symptoms Reported Hematologic/Lymphatic: No Symptoms Reported Past Aogfcow-Qmkgln-Sszqrf Hx Patient Social History Alcohol Use: Denies Use Recreational Drug Use: No Smoking Status: Current Everyday Smoker Type Used: Cigarettes 2nd Hand Smoke Exposure: Yes Recent Foreign Travel: No Contact w/Someone Who Travel: No Recent Infectious Disease Expo: No Recent Hopitalizations: No Immunizations Up To Date Tetanus Booster (TDap): Less than 5yrs Seasonal Allergies Seasonal Allergies: Yes Past Medical History Surgeries: Yes Section, Gallbladder, 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 Respiratory: Yes Asthma Cardiac: Yes Chronic Edema/Swelling Neurological: Yes Headaches /Migraines 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 oz. 74.657051vu; 30.00 BMI Method:Stated General Appearance: WD/WN, no apparent distress Eyes: Bilateral Eye Normal Inspection, Bilateral Eye PERRL HEENT: PERRL/EOMI, normal ENT inspection Neck: non-tender, full range of motion Respiratory: no respiratory distress, no accessory muscle use Cardiovascular: regular rate, rhythm, no murmur Gastrointestinal: normal bowel sounds, non tender Extremities: normal range of motion, non-tender Neurologic/Psychiatric: alert, normal mood/affect, oriented x 3 Skin: normal color, warm/dry Progress/Results/Core Measures Suspected Sepsis Recent Fever Within 48 Hours: No Infection Criteria Present: Suspected New Infection New/Unexplained Altered Menta: No Sepsis Screen: No Definite Risk SIRS Temperature: Pulse: 91 Respiratory Rate: 16 Blood Pressure 126 /83 Mean: 97 Results/Orders My Orders Orders - BLAZE CHINCHILLA APRN Chest Pa/Lat (2 View) (07/10/19 20:20) Rx-Albuterol Inhaler (Rx-Proair) (07/10/19 20:20) Vital Signs/I&O 07/10/19 20:09 Temp 37.1 Pulse 91 Resp 16 B/P (MAP) 126/83 (97) Pulse Ox 97 O2 Delivery Room Air Capillary Refill : Less Than 3 Seconds Blood Pressure Mean: 97 Departure Impression Primary Impression: Upper respiratory infection Disposition: 01 HOME, SELF-CARE Condition: Stable Departure-Patient Inst. Decision time for Depature: 20:19 Referrals: [facility] (PCP/Family) Primary Care Physician Patient Instructions: Cough, Adult (DC) Add. Discharge Instructions: 1. Return here for any concerns 2. Follow-up with your doctor tomorrow. All discharge instructions reviewed with patient and/or family. Voiced understanding. Scripts Prednisone (Prednisone) 20 Mg Tab 40 MG PO DAILY, #6 TAB 0 Refills Prov: BLAZE CHINCHILLA APRN 07/10/19 Albuterol Sulfate (PROAIR HFA) 1 Puff Puff 2 PUFF IH Q4H PRN for WHEEZING, #1 PUFF 1 PUFF = 90 MCG Prov: BLAZE CHINCHILLA APRN 07/10/19 D-Methorphan Hb/P-Epd HCl/Bpm (Bromfed Dm Cough Syrup) 118 Ml Syrup 5 ML PO Q4H PRN for CONGESTION for 7 Days, #118 ML Prov: BLAZE CHINCHILLA APRN 07/10/19 BLAZE CHINCHILLA APRN Jul 10, 2019 20:20
[2019-07-10] MEDS ORDERED: PRD20T PO (20:42)
[2019-07-10 20:47] VITALS: BP 123/80
--- NOTE | 2019-07-10 20:48 | Diagnostic Imaging Report ---
INDICATION: Cough. FINDINGS: Lungs appear clear without focal infiltrate or evidence of an effusion. There is no pneumothorax. Heart size and mediastinal contours are appropriate and pulmonary vascularity appears normal. There is no acute or suspicious osseous abnormality. IMPRESSION: No radiographic evidence of an acute cardiopulmonary process. Dictated by: Dictated on workstation # [id number]
== END 2019-07-10 20:47 | disposition home or self-care (01) ==
LOC: EDUNIT# 19:59 → ER 20:00
DX: J06.9 Acute upper respiratory infection, unspecified (principal); J45.909 Unspecified asthma, uncomplicated; G43.909 Migraine, unspecified, not intractable, without status migrainosus; K21.9 Gastro-esophageal reflux disease without esophagitis; F17.210 Nicotine dependence, cigarettes, uncomplicated; Z87.19 Personal history of other diseases of the digestive system; Z87.440 Personal history of urinary (tract) infections; Z87.442 Personal history of urinary calculi; Z88.2 Allergy status to sulfonamides; Z88.5 Allergy status to narcotic agent; Z88.6 Allergy status to analgesic agent; Z98.51 Tubal ligation status
CPT/HCPCS: 71046

== ENCOUNTER 2019-08-11 20:31 | Emergency (ER) | payer OTHER ==
[~2019-08-11] VITALS: Ht 162 cm; Wt 65.0 kg
[~2019-08-11 20:31] MED LIST changes: +D-ME118S33 PO; +RT-ALBUINH IH
--- NOTE | 2019-08-11 21:09 | ED Lower Extremity ---
General Chief Complaint: Lower Extremity Stated Complaint: FALL,R KNEE PAIN Nursing Triage Note: PT PRESENTS TO THE ED AFTER SUFFERING A FALL AT WORK AT 0830, PT STATES SHE FELL FROM A STANDING POSITION , LANDED ON BOTH KNEES BUT THE R KNEE IS REPORTED HAVING MORE PAIN AND INTOLERANCE TO CLIMBING STAIRS. Nursing Sepsis Screen: No Definite Risk Source: patient Exam Limitations: no limitations History of Present Illness Date Seen by Provider: Aug 11, 2019 Time Seen by Provider: 20:29 Initial Comments Patient presents to ER by private conveyance with chief complaint that at 8:30 this morning she fell forward onto her knees while at work. 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 She struck both of her knees with her right knee is having considerable pain with walking. No previous injuries or surgeries to her knees. She does not strike her head nor lose consciousness. She does not take any medication. She has had tubal ligation. She has used ibuprofen this morning about 9:00 and again at 4:00 in the afternoon. She doesn't want anything for pain at this time. No numbness or tingling. Allergies and Home Medications Allergies Coded Allergies: Sulfa (Sulfonamide Antibiotics) (Verified Allergy, Mild, 06/13/16) codeine (Unverified Allergy, Unknown, 04/11/14) hydrocodone (Unverified Allergy, Unknown, 04/11/14) meperidine HCl (Unverified Allergy, Unknown, 04/11/14) morphine (Verified Allergy, Unknown, 05/02/11) Home Medications Albuterol Sulfate 1 Puff Puff, 2 PUFF IH Q4H PRN for WHEEZING 1 PUFF = 90 MCG Prescribed by: BLAZE CHINCHILLA on 07/10/192019 D-Methorphan Hb/P-Epd HCl/Bpm 118 Ml Syrup, 5 ML PO Q4H PRN for CONGESTION Prescribed by: BLAZE CHINCHILLA on 07/10/192019 Prednisone 20 Mg Tab, 40 MG PO DAILY Prescribed by: BLAZE CHINCHILLA on 07/10/192041 Patient Home Medication List Home Medication List Reviewed: Yes Review of Systems Constitutional: No chills, No diaphoresis EENTM: No ear discharge, No ear pain Respiratory: No cough, No short of breath Cardiovascular: No chest pain, No edema Gastrointestinal: No abdominal pain, No constipation, No diarrhea Genitourinary: No decreased output, No discharge : No (tubal ligation) Past Saterod-Tdnnxx-Knndwh Hx Patient Social History Alcohol Use: Denies Use Recreational Drug Use: No Smoking Status: Current Everyday Smoker Type Used: Cigarettes 2nd Hand Smoke Exposure: Yes Recent Foreign Travel: No Contact w/Someone Who Travel: No Recent Infectious Disease Expo: No Recent Hopitalizations: No Immunizations Up To Date Tetanus Booster (TDap): Less than 5yrs Seasonal Allergies Seasonal Allergies: Yes Past Medical History Surgeries: Yes Section, Gallbladder, 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 Respiratory: Yes Asthma Cardiac: Yes Chronic Edema/Swelling Neurological: Yes Headaches /Migraines : No 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 Disorders: No 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 oz. 74.920667gt; 24.00 BMI Method:Stated General Appearance: WD/WN, mild distress HEENT: PERRL/EOMI, pharynx normal Cardiovascular: normal peripheral pulses, regular rate, rhythm, no edema Respiratory: no respiratory distress, no accessory muscle use Legs: bilateral leg non-tender, bilateral leg normal inspection, bilateral leg normal range of motion, bilateral leg no evidence of injury Knees: left knee normal range of motion; bilateral knee bone tenderness, bilateral knee joint effusion (mild r worse than l), bilateral knee pain (bilat eral anterior tibial plateau); right knee other (Limited range of motion flexion to about 90. Unable to complete a full ligamentous knee examination due to discomfort.) Ankles: bilateral ankle non-tender, bilateral ankle normal inspection, bilateral ankle normal range of motion, bilateral ankle no evidence of injury Feet: bilateral foot non-tender, bilateral foot normal inspection, bilateral foot normal range of motion, bilateral foot no evidence of injury Neurologic/Tendon: normal sensation, normal motor functions, normal tendon functions, responds to pain, no evidence tendon injury (left knee) Neurologic/Psychiatric: no motor/sensory deficits, alert, oriented x 3 Skin: ecchymosis (anterior knee and bilateral) Progress/Results/Core Measures Results/Orders My Orders Orders - CHRISTI URBAN Knee, Right, 3 Views (08/11/19 20:59) Vital Signs/I&O 08/11/19 20:36 Temp 36.8 Pulse 82 Resp 20 B/P (MAP) 114/73 (87) Pulse Ox 98 O2 Delivery Room Air Blood Pressure Mean: 87 Progress Progress Note : Time: 21:14 Progress Note Provided her with an ice pack and will get x-rays of her right knee since last when she's having difficulty walking on. If the osseous structures are normal and she can follow up outpatient in a week with primary care or orthopedics if she prefers. Diagnostic Imaging Diagonstic Imaging: Xray Plain Films/CT/US/NM/MRI: knee (r) Comments NAME: CHRIS PALMER [facility] REC#: [id number] PT STATUS: REG ER : 1985 PHYSICIAN: CHRISTI URBAN MD ADMIT DATE: 08/11/19/ER Draft Date of Exam:08/11/19 KNEE, RIGHT, 3 VIEWS EXAM: Right knee at 9:15 p.m. INDICATION: Fell TECHNIQUE: 3 views were obtained. COMPARISON: There are no prior studies available for comparison. FINDINGS: There is no fracture, dislocation or acute bony abnormality evident. The knee joint is fairly well maintained. The soft tissues are unremarkable. IMPRESSION: 1. There is no evidence for an acute bony abnormality. Dictated on workstation # [id number] Dict: 08/11/[id number] Trans: 08/11/192135 [facility] [id number] Interpreted by: URVASHI SALOMON MD Electronically signed by: Reviewed: Reviewed by Me Departure Impression Primary Impression: Fall Qualified Codes: W19.XXXA - Unspecified fall, initial encounter Additional Impression: Knee pain, bilateral Qualified Codes: M25.561 - Pain in right knee; M25.562 - Pain in left knee Disposition: 01 HOME, SELF-CARE Condition: Stable Departure-Patient Inst. Decision time for Depature: 21:58 Referrals: [facility] (PCP/Family) Primary Care Physician JACQUELYN MAJOR MD Patient Instructions: Knee Sprain (DC) Add. Discharge Instructions: Khari bandage wrap to both knees. Ice pack for 20 minutes every 4 hours while awake for the first 3 days. Do not lift, push or pull more than 20 pounds for the first week. Follow-up with primary care or orthopedic surgery in the next week for reevaluation if still having pain. Tylenol 1000 g every 8 hours as needed for pain. Ibuprofen 800 mg every 8 hours as needed for pain. All discharge instructions reviewed with patient and/or family. Voiced understanding. 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 Restrictions: Minimize use of right knee and keep elevated when possible. Copy Copies To 1: JACQUELYN MAJOR MD, TITUS J Aug 11, 2019 21:09
--- NOTE | 2019-08-11 21:37 | Diagnostic Imaging Report ---
EXAM: Right knee at 9:15 p.m. INDICATION: Fell TECHNIQUE: 3 views were obtained. COMPARISON: There are no prior studies available for comparison. FINDINGS: There is no fracture, dislocation or acute bony abnormality evident. The knee joint is fairly well maintained. The soft tissues are unremarkable. IMPRESSION: 1. There is no evidence for an acute bony abnormality. Dictated by: Dictated on workstation # [id number]
[2019-08-11 22:13] VITALS: BP 114/73
== END 2019-08-11 22:13 | disposition home or self-care (01) ==
LOC: EDUNIT# 20:31 → ER 20:32
DX: M25.561 Pain in right knee (principal); M25.562 Pain in left knee; J45.909 Unspecified asthma, uncomplicated; G43.909 Migraine, unspecified, not intractable, without status migrainosus; K21.9 Gastro-esophageal reflux disease without esophagitis; F17.210 Nicotine dependence, cigarettes, uncomplicated; Z87.442 Personal history of urinary calculi; Z87.440 Personal history of urinary (tract) infections; Z98.51 Tubal ligation status; Z88.2 Allergy status to sulfonamides; Z88.5 Allergy status to narcotic agent; Z79.52 Long term (current) use of systemic steroids; W18.39XA Other fall on same level, initial encounter; Y92.59 Other trade areas as the place of occurrence of the external cause
CPT/HCPCS: 73562

== ENCOUNTER 2019-08-31 13:34 | Emergency (ER) | payer OTHER ==
[~2019-08-31] VITALS: Ht 157.9 cm; Wt 65.9 kg
--- NOTE | 2019-08-31 13:50 | ED GU-Female ---
General Chief Complaint: - Urinary Stated Complaint: POSSIBLE UTI Source: patient Exam Limitations: no limitations History of Present Illness Date Seen by Provider: Aug 31, 2019 Time Seen by Provider: 13:48 Initial Comments To ER with reports of possible urinary tract infection. She reports suprapubic discomfort, low back pain, nausea, urinary frequency and burning on urination for couple of weeks. Timing/Duration: getting worse Severity/Quality: moderate Location: suprapubic Radiation: none Activities at Onset: none Prior Genitourinary Problems: none Allergies and Home Medications Allergies Coded Allergies: Sulfa (Sulfonamide Antibiotics) (Verified Allergy, Mild, 06/13/16) codeine (Unverified Allergy, Unknown, 04/11/14) hydrocodone (Unverified Allergy, Unknown, 04/11/14) meperidine HCl (Unverified Allergy, Unknown, 04/11/14) morphine (Verified Allergy, Unknown, 05/02/11) Home Medications Albuterol Sulfate 1 Puff Puff, 2 PUFF IH Q4H PRN for WHEEZING 1 PUFF = 90 MCG Prescribed by: BLAZE CHINCHILLA on 07/10/192019 D-Methorphan Hb/P-Epd HCl/Bpm 118 Ml Syrup, 5 ML PO Q4H PRN for CONGESTION Prescribed by: BLAZE CHINCHILLA on 07/10/192019 Prednisone 20 Mg Tab, 40 MG PO DAILY Prescribed by: BLAZE CHINCHILLA on 07/10/192041 Patient Home Medication List Home Medication List Reviewed: Yes Review of Systems Review of Systems Constitutional: see HPI; No fever EENTM: see HPI Respiratory: no symptoms reported Cardiovascular: no symptoms reported Gastrointestinal: abdominal pain (suprapubic); No diarrhea; nausea; No vomiting Genitourinary: burning, dysuria, frequency Musculoskeletal: no symptoms reported Skin: no symptoms reported Psychiatric/Neurological: No Symptoms Reported Endocrine: No Symptoms Reported Past Nacgssx-Domrzl-Faqkqk Hx Patient Social History Type Used: Cigarettes 2nd Hand Smoke Exposure: Yes Recent Foreign Travel: No (N) Contact w/Someone Who Travel: No Recent Hopitalizations: No Immunizations Up To Date Tetanus Booster (TDap): Less than 5yrs Seasonal Allergies Seasonal Allergies: Yes Past Medical History Surgeries: Yes Section, Gallbladder, 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 Respiratory: Yes Asthma Cardiac: Yes Chronic Edema/Swelling Neurological: Yes Headaches /Migraines 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 oz. 74.852955qz; 24.00 BMI Method:Stated General Appearance: WD/WN, no apparent distress HEENT: PERRL/EOMI, normal ENT inspection Neck: non-tender, full range of motion Cardiovascular: regular rate, rhythm, no murmur Respiratory: no respiratory distress, no accessory muscle use Gastrointestinal: normal bowel sounds, non tender Pelvic: other (exam done with Angela RN at the bedside there is a brownish discharge from the cervix, cervical motion tenderness.) Neurologic/Psychiatric: alert, normal mood/affect, oriented x 3 Skin: normal color, warm/dry Progress/Results/Core Measures Suspected Sepsis SIRS Temperature: Pulse: Respiratory Rate: Laboratory Tests 08/31/19 14:20: White Blood Count 11.8H Blood Pressure / Mean: Laboratory Tests 08/31/19 14:20: Creatinine 0.68, Platelet Count 269, Total Bilirubin 0.2 Results/Orders Lab Results Laboratory Tests Test 08/31/19 13:44 08/31/19 14:20 Range/Units Urine Color YELLOW Urine Clarity CLEAR Urine pH 6 5-9 Urine Specific [place] 1.025 H 1.016-1.022 Urine Protein NEGATIVE NEGATIVE Urine Glucose (UA) NEGATIVE NEGATIVE Urine Ketones NEGATIVE NEGATIVE Urine Nitrite NEGATIVE NEGATIVE Urine Bilirubin NEGATIVE NEGATIVE Urine Urobilinogen NORMAL NORMAL MG/DL Urine Leukocyte Esterase 1+ H NEGATIVE Urine RBC (Auto) 4+ H NEGATIVE Urine RBC 2-5 H /HPF Urine WBC 0-2 /HPF Urine Squamous Epithelial Cells 5-10 /HPF Urine Crystals NONE /LPF Urine Bacteria FEW H /HPF Urine Casts NONE /LPF Urine Mucus SMALL H /LPF Urine Culture Indicated NO White Blood Count 11.8 H 4.3-11.0 10^3/uL Red Blood Count 4.85 4.35-5.85 10^6/uL Hemoglobin 14.2 11.5-16.0 G/DL Hematocrit 41 35-52 % Mean Corpuscular Volume 85 80-99 FL Mean Corpuscular Hemoglobin 29 25-34 PG Mean Corpuscular Hemoglobin Concent 34 32-36 G/DL Red Cell Distribution Width 13.6 10.0-14.5 % Platelet Count 269 130-400 10^3/uL Mean Platelet Volume 9.8 7.4-10.4 FL Neutrophils (%) (Auto) 61 42-75 % Lymphocytes (%) (Auto) 30 12-44 % Monocytes (%) (Auto) 8 0-12 % Eosinophils (%) (Auto) 2 0-10 % Basophils (%) (Auto) 0 0-10 % Neutrophils # (Auto) 7.2 1.8-7.8 X 10^3 Lymphocytes # (Auto) 3.5 1.0-4.0 X 10^3 Monocytes # (Auto) 0.9 0.0-1.0 X 10^3 Eosinophils # (Auto) 0.2 0.0-0.3 10^3/uL Basophils # (Auto) 0.1 0.0-0.1 10^3/uL Sodium Level 139 135-145 MMOL/L Potassium Level 3.6 3.6-5.0 MMOL/L Chloride Level 107 98-107 MMOL/L Carbon Dioxide Level 21 21-32 MMOL/L Anion Gap 11 5-14 MMOL/L Blood Urea Nitrogen 11 7-18 MG/DL Creatinine 0.68 0.60-1.30 MG/DL Estimat Glomerular Filtration Rate > 60 BUN/Creatinine Ratio 16 Glucose Level 101 70-105 MG/DL Calcium Level 9.6 8.5-10.1 MG/DL Corrected Calcium 9.6 8.5-10.1 MG/DL Total Bilirubin 0.2 0.1-1.0 MG/DL Aspartate Amino Transf (AST/SGOT) 19 5-34 U/L Alanine Aminotransferase (ALT/SGPT) 23 0-55 U/L Alkaline Phosphatase 111 40-136 U/L Total Protein 6.9 6.4-8.2 GM/DL Albumin 4.0 3.2-4.5 GM/DL My Orders Orders - BLAZE CHINCHILLA RUN LEAD Cbc With Automated Diff (08/31/19 14:06) Comprehensive Metabolic Panel (08/31/19 14:06) Ct Abd/Pelvis Wo(Kidney Stone) (08/31/19 14:06) Wet Prep (08/31/19 14:06) Neisseria Gonorrhea Swab (08/31/19 14:06) Genital Culture (08/31/19 14:06) Chlamydia Trachomatis Swab (08/31/19 14:06) Azithromycin Tablet (Zithromax Tablet) (08/31/19 15:00) Ceftriaxone For Im Use (Rocephin For Im (08/31/19 15:00) Lidocaine 1% Inj 20 Ml (Xylocaine 1% Inj (08/31/19 15:00) Vital Signs/I&O 08/31/19 13:40 Temp 37.0 Pulse 91 Resp 18 B/P (MAP) 133/65 (87) Pulse Ox 98 Capillary Refill : Diagnostic Imaging Diagonstic Imaging: CT Comments NAME: [facility]MER [facility] REC#: [id number] PT STATUS: REG ER : 1985 PHYSICIAN: BLAZE CHINCHILLA APRN ADMIT DATE: 08/31/19/ER Draft POSDate of Exam:08/31/19 CT ABD/PELVIS WO(KIDNEY STONE) EXAMINATION: CT abdomen and pelvis without contrast, 08/31/2019. TECHNIQUE: Multiple contiguous axial images were obtained through the abdomen and pelvis without the use of intravenous contrast. Auto Exposure Controls were utilized during the CT exam to meet ALARA standards for radiation dose reduction. INDICATION: Low pelvic pain with diarrhea status post cholecystectomy. COMPARISONS: 01/15/2016. FINDINGS: Clips are seen in the right upper quadrant consistent with previous cholecystectomy. The abdominal viscera demonstrate no acute process on this noncontrast examination. Liver, spleen, pancreas, and adrenal glands are unremarkable. Kidneys are grossly unremarkable as well. No nephrolithiasis or hydronephrosis. There are no ureteral stones. The appendix is unremarkable. The uterus is somewhat prominent perhaps due to underlying fibroids; sonography could provide better characterization if clinically indicated. Cystic change in the right adnexa, likely ovarian, approximately 2 cm in greatest dimension. However, it is somewhat elongated in appearance, and fluid within a dilated fallopian tube not excluded. Again, sonographic evaluation could better characterize as clinically indicated. There is no inflammatory change about the bowel loops. No ascites or free air. No acute osseous abnormality. Lung bases are unremarkable. IMPRESSION: 1. Prominent uterus as well as a cystic collection in the right adnexa, somewhat tubular, perhaps due to a dilated fluid-filled fallopian tube and/or cystic change in the right ovary. Pelvic sonography could better characterize as clinically indicated. Other incidental findings as discussed above. Dictated on workstation # [id number] Dict: 08/31/19 1440 Trans: 08/31/19 1448 [id number] Interpreted by: JUMA SOSA MD Electronically signed by: Departure Communication (Admissions) [id number] the case and findings with the patient including the possibility of a tubo-ovarian abscess based on CT. We do not have ultrasound today. She does not want to go to [place] for ultrasound today, she would like to return tomorrow to have ultrasound done then. That's certainly fine she is nontoxic appearing with stable labs and vital signs. I'll empirically treat with Rocephin and azithromycin and outpatient regimen of metronidazole plus doxycycline. Impression Primary Impression: PID (acute pelvic inflammatory disease) Disposition: HOME, SELF-CARE Condition: Stable Departure-Patient Inst. Decision time for Depature: 15:16 Referrals: [facility] [place] (PCP/Family) Primary Care Physician Patient Instructions: Pelvic Inflammatory Disease (DC) Add. Discharge Instructions: 1. Return to ER for any fevers or worsening pain or other concerns. Otherwise return to ER tomorrow to have pelvic ultrasound performed to evaluate this cystic structure near or part of the right ovary. Take antibiotics as directed starting today. All discharge instructions reviewed with patient and/or family. Voiced understanding. Scripts Doxycycline Hyclate (Doxycycline Hyclate) 100 Mg Tablet 100 MG PO BID, #20 TAB 0 Refills Prov: BLAZE CHINCHILLA APRN 08/31/19 Metronidazole (Metronidazole) 500 Mg Tablet 500 MG PO BID, #14 TAB 0 Refills Prov: BLAZE CHINCHILLA RUN LEAD 08/31/19 BLAZE CHINCHILLA APRN Aug 31, 2019 13:50 POS
[2019-08-31 13:52] LABS: BILIRUBIN,URINE NEGATIVE (NEGATIVE); CLARITY,URINE CLEAR; COLOR,URINE YELLOW; GLUCOSE, URINE (UA) NEGATIVE (NEGATIVE); KETONES,URINE NEGATIVE (NEGATIVE); LEUKOCYTE ESTERASE ,URINE 1+ (NEGATIVE); NITRITE,URINE NEGATIVE (NEGATIVE); PH,URINE 6 (5-9); PROTEIN,URINE NEGATIVE (NEGATIVE)
[2019-08-31 14:01] LABS: BACTERIA,URINE FEW /HPF; WBC,URINE 0-2 /HPF
[2019-08-31 14:26] LABS: BASOPHILS # (AUTO) 0.1 10^3/uL (0.0-0.1); BASOPHILS % (AUTO) 0 % (0-10); EOSINOPHILS # (AUTO) 0.2 10^3/uL (0.0-0.3); EOSINOPHILS % (AUTO) 2 % (0-10); HEMATOCRIT 41 % (35-52); HEMOGLOBIN 14.2 G/DL (11.5-16.0); LYMPHOCYTES # (AUTO) 3.5 X 10^3 (1.0-4.0); LYMPHOCYTES % (AUTO) 30 % (12-44); MEAN CORPUSCULAR HEMOGLOBIN 29 PG (25-34); MEAN CORPUSCULAR HGB CONC 34 G/DL (32-36); MEAN CORPUSCULAR VOLUME 85 FL (80-99); MEAN PLATELET VOLUME 9.8 FL (7.4-10.4); MONOCYTES # (AUTO) 0.9 X 10^3 (0.0-1.0); MONOCYTES % (AUTO) 8 % (0-12); NEUTROPHILS # (AUTO) 7.2 X 10^3 (1.8-7.8); NEUTROPHILS % (AUTO) 61 % (42-75); PLATELET COUNT 269 10^3/uL (130-400); RED CELL DISTRIBUTION WIDTH 13.6 % (10.0-14.5); WHITE BLOOD COUNT 11.8 10^3/uL (4.3-11.0)
[2019-08-31 14:46] LABS: ALANINE AMINOTRANSFERASE 23 U/L (0-55); ALKALINE PHOSPHATASE 111 U/L (40-136); BILIRUBIN,TOTAL 0.2 MG/DL (0.1-1.0); BUN/CREATININE RATIO 16; CALCIUM 9.6 MG/DL (8.5-10.1); CARBON DIOXIDE 21 MMOL/L (21-32); CHLORIDE 107 MMOL/L (98-107); CREATININE SERUM 0.68 MG/DL (0.60-1.30); GFR ESTIMATED > 60; GLUCOSE 101 MG/DL (70-105); POTASSIUM 3.6 MMOL/L (3.6-5.0); SODIUM 139 MMOL/L (135-145); TOTAL PROTEIN 6.9 GM/DL (6.4-8.2)
--- NOTE | 2019-08-31 14:50 | Diagnostic Imaging Report ---
EXAMINATION: CT abdomen and pelvis without contrast, 08/31/2019. TECHNIQUE: Multiple contiguous axial images were obtained through the abdomen and pelvis without the use of intravenous contrast. Auto Exposure Controls were utilized during the CT exam to meet ALARA standards for radiation dose reduction. INDICATION: Low pelvic pain with diarrhea status post cholecystectomy. COMPARISONS: 01/15/2016. FINDINGS: Clips are seen in the right upper quadrant consistent with previous cholecystectomy. The abdominal viscera demonstrate no acute process on this noncontrast examination. Liver, spleen, pancreas, and adrenal glands are unremarkable. Kidneys are grossly unremarkable as well. No nephrolithiasis or hydronephrosis. There are no ureteral stones. The appendix is unremarkable. The uterus is somewhat prominent perhaps due to underlying fibroids; sonography could provide better characterization if clinically indicated. Cystic change in the right adnexa, likely ovarian, approximately 2 cm in greatest dimension. However, it is somewhat elongated in appearance, and fluid within a dilated fallopian tube not excluded. Again, sonographic evaluation could better characterize as clinically indicated. There is no inflammatory change about the bowel loops. No ascites or free air. No acute osseous abnormality. Lung bases are unremarkable. IMPRESSION: 1. Prominent uterus as well as a cystic collection in the right adnexa, somewhat tubular, perhaps due to a dilated fluid-filled fallopian tube and/or cystic change in the right ovary. Pelvic sonography could better characterize as clinically indicated. Other incidental findings as discussed above. Dictated by: Dictated on workstation # [id number]
[2019-08-31] MEDS ORDERED: cefTRIAXone 1,000 MG/2.86 ml vial (IM ONLY) IM SCH (15:00)
[2019-08-31] MEDS ORDERED: LIDOCAINE 1% INJ 20 ML 20 ML VIAL INJ ONE (15:00)
[2019-08-31] MEDS ORDERED: AZITHROMYCIN 250 MG TAB (ZITHROMAX) PO SCH (15:00)
[2019-08-31] MEDS ORDERED: METR-145 PO (15:17)
[2019-08-31] MEDS ORDERED: DOXY100T2 PO (15:17)
[2019-08-31 15:57] VITALS: BP 133/65
[2019-09-01] MEDS ORDERED: TRAM-42 PO (10:22)
== END 2019-08-31 15:57 | disposition home or self-care (01) ==
LOC: EDUNIT# 13:34 → ER 13:35
DX: N73.0 Acute parametritis and pelvic cellulitis (principal); G43.909 Migraine, unspecified, not intractable, without status migrainosus; K21.9 Gastro-esophageal reflux disease without esophagitis; J45.909 Unspecified asthma, uncomplicated; Z87.440 Personal history of urinary (tract) infections; Z87.442 Personal history of urinary calculi; Z88.2 Allergy status to sulfonamides; Z88.5 Allergy status to narcotic agent; Z79.52 Long term (current) use of systemic steroids; Z77.22 Contact with and (suspected) exposure to environmental tobacco smoke (acute) (chronic); Z98.51 Tubal ligation status
CPT/HCPCS: 36415; 74176; 80053; 81000; 84703; 85025; 87070; 87205; 87210; 87491; 87591

== ENCOUNTER 2019-09-01 07:30 | Emergency (ER) | payer OTHER ==
[~2019-09-01] VITALS: Ht 157.4 cm; Wt 71.6 kg
[~2019-09-01 07:30] MED LIST changes: +DOXY100T2 PO; +METR-145 PO
--- NOTE | 2019-09-01 07:49 | ED GU-Female ---
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 She was seen in the emergency department yesterday by Dmitri Wang and on CT had an enlarged right ovary. The patient relates that she has had increasing pain over the last 8 years in the right adnexa. She's been told in the past that she has enlarged right ovary. Patient is a C section 5 female who has had a tubal ligation. She denies associated fever, chill, dysuria, frequency, nausea, vomiting, or abnormal vaginal bleeding. Allergies and Home Medications Allergies Coded Allergies: Sulfa (Sulfonamide Antibiotics) (Verified Allergy, Mild, 06/13/16) codeine (Unverified Allergy, Unknown, 04/11/14) hydrocodone (Unverified Allergy, Unknown, 04/11/14) meperidine HCl (Unverified Allergy, Unknown, 04/11/14) morphine (Verified Allergy, Unknown, 05/02/11) Home Medications Albuterol Sulfate 1 Puff Puff, 2 PUFF IH Q4H PRN for WHEEZING 1 PUFF = 90 MCG Prescribed by: DMITRI WANG on 07/10/192019 D-Methorphan Hb/P-Epd HCl/Bpm 118 Ml Syrup, 5 ML PO Q4H PRN for CONGESTION Prescribed by: DMITRI WANG on 07/10/192019 Doxycycline Hyclate 100 Mg Tablet, 100 MG PO BID Prescribed by: DMITRI WANG on 08/31/191516 Metronidazole 500 Mg Tablet, 500 MG PO BID Prescribed by: DMITRI WANG on 08/31/191516 Prednisone 20 Mg Tab, 40 MG PO DAILY Prescribed by: DMITRI WANG on 07/10/192041 Patient Home Medication List Home Medication List Reviewed: Yes Review of Systems Review of Systems Constitutional: no symptoms reported EENTM: no symptoms reported Respiratory: no symptoms reported Cardiovascular: no symptoms reported Gastrointestinal: no symptoms reported Genitourinary: see HPI, pain (right lower quadrant) Musculoskeletal: no symptoms reported Skin: no symptoms reported Psychiatric/Neurological: No Symptoms Reported Endocrine: No Symptoms Reported Hematologic/Lymphatic: No Symptoms Reported Past Xtqckgg-Yurkxd-Ldedug Hx Past Med/Social Hx: Reviewed Nursing Past Med/Soc Hx Patient Social History Alcohol Use: Denies Use Recreational Drug Use: No Type Used: Cigarettes 2nd Hand Smoke Exposure: Yes Recent Hopitalizations: No Immunizations Up To Date Tetanus Booster (TDap): Less than 5yrs Seasonal Allergies Seasonal Allergies: Yes Past Medical History Surgeries: Yes Section, Gallbladder, 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 Respiratory: Yes Asthma Cardiac: Yes Chronic Edema/Swelling Neurological: Yes Headaches /Migraines 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 oz. 74.671491of; 26.00 BMI Method:Stated General Appearance: WD/WN, no apparent distress HEENT: normal ENT inspection Neck: normal inspection Cardiovascular: regular rate, rhythm Respiratory: normal breath sounds Gastrointestinal: normal bowel sounds, tenderness (there is slight tenderness to palpation over the right lower quadrant) Neurologic/Psychiatric: no motor/sensory deficits, alert, normal mood/affect Skin: normal color, warm/dry Progress/Results/Core Measures Suspected Sepsis SIRS Temperature: Pulse: Respiratory Rate: Blood Pressure / Mean: Results/Orders My Orders Orders - YESSY DOUGHERTY MD Non Ob Pelvis Comp/Transvag (09/01/19 07:43) Vital Signs/I&O 09/01/19 07:37 Temp 36.8 Pulse 99 Resp 18 B/P (MAP) 131/59 (83) Pulse Ox 98 O2 Delivery Room Air Capillary Refill : Progress Note : Time: 10:08 Progress Note There is hypogenic mass in the area of the right ovary as well as a right ovarian cyst noted on transvaginal ultrasound. I spoke with Dr. Izaguirre who will see the patient in follow-up in his office this week. Departure Impression Primary Impression: Adnexal mass Disposition: 01 HOME, SELF-CARE Condition: Unchanged Departure-Patient Inst. Decision time for Depature: 10:17 Referrals: [facility] (PCP/Family) Primary Care Physician ABDOUL IZAGUIRRE DO Patient Instructions: Acute Pelvic Pain (DC) Add. Discharge Instructions: Follow-up with Dr. Izaguirre this week. Ultram for pain, Come back if any problems. All discharge instructions reviewed with patient and/or family. Voiced understanding. Scripts Tramadol HCl (Ultram) 50 Mg Tablet 50 MG PO Q4H PRN for PAIN-MODERATE, #20 TAB Prov: YESSY DOUGHERTY MD 09/01/19 YESSY DOUGHERTY MD Sep 01, 2019 07:49 POS
--- NOTE | 2019-09-01 08:47 | NUR ---
back from [facility]
--- NOTE | 2019-09-01 09:28 | Diagnostic Imaging Report ---
PROCEDURE: US Non-ob pelvis comp/trans. TECHNIQUE: Multiple realtime grayscale images were obtained of the pelvis in various projections endovaginally. Transabdominal imaging was also performed. INDICATION: Pelvic inflammatory disease. COMPARISON: CT abdomen and pelvis on 08/31/2019. FINDINGS: Transabdominal: The uterus has an unremarkable transabdominal appearance. An ill-defined hypoechoic structure is seen in the right adnexa. The left adnexa is unremarkable. Transvaginal images were obtained for additional characterization. Transvaginal: The uterus is anteverted and measures 10.3 x 6.0 x 5.1 cm. A prominent fibroid is visualized within the anterior uterus measuring 4.3 x 2.6 x 3.5 cm. The endometrial stripe measures 1.3 cm and has a normal appearance. Nabothian cysts are seen. The right ovary is well visualized measuring 2.6 x 1.4 x 1.4 cm and demonstrating normal color Doppler flow. A dominant follicle/cyst is seen in the right ovary. A tubular hypoechoic structure is seen in the right adnexa measuring 4.3 x 2.6 x 3.5 cm. There is possible debris layering within the tubular structure. The left ovary is well-visualized measuring 4.4 x 3.1 x 2.1 cm with normal color Doppler flow. A dominant follicle/cyst seen in the left ovary measuring 1.6 x 1.9 x 1.6 cm. No free fluid is seen in the pelvis. IMPRESSION: 1. Tubular hypoechoic structure in the right adnexa with possible layering debris. This is favored to represent hydrosalpinx. No free fluid is seen in the pelvis. 2. Dominant follicle/cyst in the bilateral ovaries. No sonographic evidence of torsion. 3. Prominent fibroid within the anterior uterus. Dictated by: Dictated on workstation # [id number]
[2019-09-01] MEDS ORDERED: TRAM-42 PO (10:22)
[2019-09-01 10:47] VITALS: BP 131/59
== END 2019-09-01 10:46 | disposition home or self-care (01) ==
LOC: EDUNIT# 07:30 → ER 07:32
DX: R19.09 Other intra-abdominal and pelvic swelling, mass and lump (principal); J45.909 Unspecified asthma, uncomplicated; G43.909 Migraine, unspecified, not intractable, without status migrainosus; K21.9 Gastro-esophageal reflux disease without esophagitis; Z87.442 Personal history of urinary calculi; Z87.440 Personal history of urinary (tract) infections; Z88.2 Allergy status to sulfonamides; Z88.5 Allergy status to narcotic agent; Z79.52 Long term (current) use of systemic steroids; Z77.22 Contact with and (suspected) exposure to environmental tobacco smoke (acute) (chronic)
CPT/HCPCS: 76830; 76856

== ENCOUNTER 2019-10-07 08:20 | Outpatient (CLI) | payer OTHER ==
[~2019-10-07] VITALS: Ht 157 cm; Wt 70.5 kg
[~2019-10-07 08:20] MED LIST changes: +TRAM-42 PO
[2019-10-07 08:35] VITALS: BP 135/77
[2019-10-07 09:21] LABS: BASOPHILS # (AUTO) 0.1 10^3/uL (0.0-0.1); BASOPHILS % (AUTO) 1 % (0-10); EOSINOPHILS # (AUTO) 0.1 10^3/uL (0.0-0.3); EOSINOPHILS % (AUTO) 1 % (0-10); HEMATOCRIT 43 % (35-52); HEMOGLOBIN 14.7 G/DL (11.5-16.0); LYMPHOCYTES # (AUTO) 1.8 X 10^3 (1.0-4.0); LYMPHOCYTES % (AUTO) 20 % (12-44); MEAN CORPUSCULAR HEMOGLOBIN 29 PG (25-34); MEAN CORPUSCULAR HGB CONC 35 G/DL (32-36); MEAN CORPUSCULAR VOLUME 84 FL (80-99); MEAN PLATELET VOLUME 10.8 FL (7.4-10.4); MONOCYTES # (AUTO) 0.8 X 10^3 (0.0-1.0); MONOCYTES % (AUTO) 9 % (0-12); NEUTROPHILS # (AUTO) 6.2 X 10^3 (1.8-7.8); NEUTROPHILS % (AUTO) 70 % (42-75); PLATELET COUNT 227 10^3/uL (130-400); RED CELL DISTRIBUTION WIDTH 13.4 % (10.0-14.5); WHITE BLOOD COUNT 8.8 10^3/uL (4.3-11.0)
== END 2019-10-07 14:42 | disposition home or self-care (01) ==
LOC: PREOP 08:20
PROVIDERS: ATTEND Obstetrics & Gynecology
DX: Z01.818 Encounter for other preprocedural examination (principal); N93.9 Abnormal uterine and vaginal bleeding, unspecified; G89.29 Other chronic pain; D25.9 Leiomyoma of uterus, unspecified; R10.2 Pelvic and perineal pain
CPT/HCPCS: 36415; 85025; 86850; 86900; 86901; 87081

== ENCOUNTER 2019-11-08 18:11 | Emergency (ER) | payer BC, OTHER ==
[~2019-11-08] VITALS: Ht 158 cm; Wt 65.9 kg
[~2019-11-08 18:11] MED LIST changes: +DOCU100C37 PO; +IBUP-844 PO; +OXYC1TAB87 PO; +SIME80TA16 PO
[2019-11-08 20:46] LABS: BASOPHILS # (AUTO) 0.1 10^3/uL (0.0-0.1); BASOPHILS % (AUTO) 0 % (0-10); EOSINOPHILS # (AUTO) 0.4 10^3/uL (0.0-0.3); EOSINOPHILS % (AUTO) 3 % (0-10); HEMATOCRIT 42 % (35-52); HEMOGLOBIN 14.6 G/DL (11.5-16.0); LYMPHOCYTES # (AUTO) 4.1 X 10^3 (1.0-4.0); LYMPHOCYTES % (AUTO) 29 % (12-44); MEAN CORPUSCULAR HEMOGLOBIN 29 PG (25-34); MEAN CORPUSCULAR HGB CONC 35 G/DL (32-36); MEAN CORPUSCULAR VOLUME 83 FL (80-99); MEAN PLATELET VOLUME 10.5 FL (7.4-10.4); MONOCYTES # (AUTO) 1.3 X 10^3 (0.0-1.0); MONOCYTES % (AUTO) 9 % (0-12); NEUTROPHILS # (AUTO) 8.5 X 10^3 (1.8-7.8); NEUTROPHILS % (AUTO) 59 % (42-75); PLATELET COUNT 248 10^3/uL (130-400); RED CELL DISTRIBUTION WIDTH 13.6 % (10.0-14.5); WHITE BLOOD COUNT 14.4 10^3/uL (4.3-11.0)
[2019-11-08 21:01] LABS: ALANINE AMINOTRANSFERASE 29 U/L (0-55); ALKALINE PHOSPHATASE 103 U/L (40-136); BILIRUBIN,TOTAL 0.2 MG/DL (0.1-1.0); BUN/CREATININE RATIO 15; CALCIUM 9.3 MG/DL (8.5-10.1); CARBON DIOXIDE 20 MMOL/L (21-32); CHLORIDE 106 MMOL/L (98-107); CREATININE SERUM 0.65 MG/DL (0.60-1.30); GFR ESTIMATED > 60; GLUCOSE 99 MG/DL (70-105); SODIUM 137 MMOL/L (135-145); TOTAL PROTEIN 6.9 GM/DL (6.4-8.2)
[2019-11-08 21:13] LABS: BILIRUBIN,URINE NEGATIVE (NEGATIVE); CLARITY,URINE CLEAR; COLOR,URINE YELLOW; GLUCOSE, URINE (UA) NEGATIVE (NEGATIVE); KETONES,URINE NEGATIVE (NEGATIVE); LEUKOCYTE ESTERASE ,URINE NEGATIVE (NEGATIVE); NITRITE,URINE NEGATIVE (NEGATIVE); PROTEIN,URINE NEGATIVE (NEGATIVE)
[2019-11-08] MEDS ORDERED: NS IV 1000 ML 1,000 ML IV ONE (21:24)
[2019-11-08] MEDS ORDERED: KETOROLAC 30 MG/ML VIAL IVP STA (21:24)
[2019-11-08 21:27] LABS: AMORPHOUS SEDIMENT,UR FEW AMOR URATES /LPF; BACTERIA,URINE FEW /HPF; WBC,URINE 0-2 /HPF
[2019-11-08] MEDS ORDERED: ONDANSETRON 4 MG/2 ML (SDV) Z0FRAN IVP ONE (21:30)
--- NOTE | 2019-11-08 21:39 | ED GU-Female ---
General Chief Complaint: WELLNESS GUIDE Stated Complaint: VAG BLEEDING, DISCHARGE, VAG PAIN Nursing Triage Note: Pt amb to room #9 with c/o abnormal vaginal bleeding, foul smelling discharge, and urinary symptoms including frequency, urgency, and burning. Pt reports to have had hysterectomy on 10/13/19 (Dr. De Luna). Pt reports increase in amount of bright red bleeding after urination and foul smelling discharge. Pt reports hx reoccurent UTI's. Denies fever or chills. A&OX4. Nursing Sepsis Screen: No Definite Risk Source: patient Exam Limitations: no limitations History of Present Illness Date Seen by Provider: Nov 08, 2019 Time Seen by Provider: 21:16 Allergies and Home Medications Allergies Coded Allergies: meperidine HCl (Unverified Allergy, Severe, SEIZURE DURING , 10/07/19) morphine (Verified Allergy, Severe, SEIZURE DURING , 10/07/19) Sulfa (Sulfonamide Antibiotics) (Verified Allergy, Mild, HIVES, 10/07/19) codeine (Unverified Allergy, Mild, HIVES, 10/07/19) hydrocodone (Unverified Allergy, Mild, HIVES, 10/07/19) Home Medications Albuterol Sulfate 1 Puff Puff, 2 PUFF IH Q4H PRN for WHEEZING 1 PUFF = 90 MCG Prescribed by: BLAZE CHINCHILLA on 07/10/192019 Docusate Sodium 100 Mg Capsule, 100 MG PO BID PRN for CONSTIPATION-1ST LINE Prescribed by: COTY ARANA on 10/13/19 09 Ibuprofen 600 Mg Tablet, 600 MG PO Q6H Prescribed by: COTY ARANA on 10/13/19930 Nitrofurantoin Monohyd/M-Cryst 100 Mg Capsule, 1 CAP PO BID Prescribed by: LOBO METZGER on 11/08/19 2244 Simethicone 80 Mg Tab.chew, 40 MG PO TID PRN for INDIGESTION 2ND LINE Prescribed by: COTY ARANA on 10/13/19 09 Tramadol HCl 50 Mg Tablet, 50-100 MG PO Q8H PRN for pain Prescribed by: COTY ARANA on 10/13/19 1408 Past Vdkpkxc-Utqvpj-Aznprj Hx Patient Social History Alcohol Use: Denies Use Recreational Drug Use: No Smoking Status: Current Everyday Smoker Type Used: Cigarettes 2nd Hand Smoke Exposure: Yes Recent Foreign Travel: No Contact w/Someone Who Travel: No Recent Infectious Disease Expo: No Recent Hopitalizations: Yes (Hysterectomy on 10/13/19) Immunizations Up To Date Tetanus Booster (TDap): Less than 5yrs Seasonal Allergies Seasonal Allergies: Yes Past Medical History Surgeries: Yes Section, Gallbladder, Hysterectomy, 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 Respiratory: Yes Asthma Currently Using CPAP: No Currently Using BIPAP: No Cardiac: Yes Chronic Edema/Swelling Neurological: Yes (HAD SEIZURES DURING ) Headaches /Migraines 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 Disorders: No Female 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 Disorders: Menstrual Problems, 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, 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, 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 Sexually Transmitted Disease: No HIV/AIDS: No Genitourinary: Yes Kidney Stones, UTI-Chronic Gastrointestinal: Yes Gastroesophageal Reflux, Chronic Constipation Musculoskeletal: Yes (chronic pain and edema right lower extremity) Endocrine: No HEENT: Yes (GLASSES) Loss of Vision: Denies Hearing Impairment: Denies Cancer: No Psychosocial: Yes Anxiety Integumentary: No Blood Disorders: No Adverse Reaction/Blood Tranf: No (N/A) Physical Exam Vital Signs Vital Signs - First Documented 11/08/19 19:06 Temp 36.8 Pulse 89 Resp 17 B/P (MAP) 117/68 (84) Pulse Ox 98 O2 Delivery Room Air Capillary Refill : Less Than 3 Seconds Height, Weight, BMI Height: 5'1.00" Weight: 165lbs. oz. 74.581741bu; 26.00 BMI Method:Stated Progress/Results/Core Measures Suspected Sepsis Recent Fever Within 48 Hours: No Infection Criteria Present: Suspected New Infection New/Unexplained Altered Menta: No Sepsis Screen: No Definite Risk SIRS Temperature: Pulse: 89 Respiratory Rate: 17 Laboratory Tests 11/08/19 20:35: White Blood Count 14.4H Blood Pressure 117 /68 Mean: 84 Laboratory Tests 11/08/19 20:35: Creatinine 0.65, Platelet Count 248, Total Bilirubin 0.2 Results/Orders Lab Results Laboratory Tests Test 11/08/19 17:15 11/08/19 20:35 Range/Units Urine Color YELLOW Urine Clarity CLEAR Urine pH 6.0 5-9 Urine Specific [place] 1.025 H 1.016-1.022 Urine Protein NEGATIVE NEGATIVE Urine Glucose (UA) NEGATIVE NEGATIVE Urine Ketones NEGATIVE NEGATIVE Urine Nitrite NEGATIVE NEGATIVE Urine Bilirubin NEGATIVE NEGATIVE Urine Urobilinogen 0.2 < = 1.0 MG/DL Urine Leukocyte Esterase NEGATIVE NEGATIVE Urine RBC (Auto) 2+ H NEGATIVE Urine RBC NONE /HPF Urine WBC 0-2 /HPF Urine Squamous Epithelial Cells 2-5 /HPF Urine Crystals PRESENT H /LPF Urine Amorphous Sediment FEW BLAYNE URATES H /LPF Urine Bacteria FEW H /HPF Urine Casts NONE /LPF Urine Mucus NEGATIVE /LPF Urine Culture Indicated YES White Blood Count 14.4 H 4.3-11.0 10^3/uL Red Blood Count 5.06 4.35-5.85 10^6/uL Hemoglobin 14.6 11.5-16.0 G/DL Hematocrit 42 35-52 % Mean Corpuscular Volume 83 80-99 FL Mean Corpuscular Hemoglobin 29 25-34 PG Mean Corpuscular Hemoglobin Concent 35 32-36 G/DL Red Cell Distribution Width 13.6 10.0-14.5 % Platelet Count 248 130-400 10^3/uL Mean Platelet Volume 10.5 H 7.4-10.4 FL Neutrophils (%) (Auto) 59 42-75 % Lymphocytes (%) (Auto) 29 12-44 % Monocytes (%) (Auto) 9 0-12 % Eosinophils (%) (Auto) 3 0-10 % Basophils (%) (Auto) 0 0-10 % Neutrophils # (Auto) 8.5 H 1.8-7.8 X 10^3 Lymphocytes # (Auto) 4.1 H 1.0-4.0 X 10^3 Monocytes # (Auto) 1.3 H 0.0-1.0 X 10^3 Eosinophils # (Auto) 0.4 H 0.0-0.3 10^3/uL Basophils # (Auto) 0.1 0.0-0.1 10^3/uL Sodium Level 137 135-145 MMOL/L Potassium Level 4.0 3.6-5.0 MMOL/L Chloride Level 106 98-107 MMOL/L Carbon Dioxide Level 20 L 21-32 MMOL/L Anion Gap 11 5-14 MMOL/L Blood Urea Nitrogen 10 7-18 MG/DL Creatinine 0.65 0.60-1.30 MG/DL Estimat Glomerular Filtration Rate > 60 BUN/Creatinine Ratio 15 Glucose Level 99 70-105 MG/DL Calcium Level 9.3 8.5-10.1 MG/DL Corrected Calcium 9.3 8.5-10.1 MG/DL Total Bilirubin 0.2 0.1-1.0 MG/DL Aspartate Amino Transf (AST/SGOT) 17 5-34 U/L Alanine Aminotransferase (ALT/SGPT) 29 0-55 U/L Alkaline Phosphatase 103 40-136 U/L Total Protein 6.9 6.4-8.2 GM/DL Albumin 4.0 3.2-4.5 GM/DL My Orders Orders - LOBO METZGER Cbc With Automated Diff (11/08/19 20:28) Comprehensive Metabolic Panel (11/08/19 20:28) Ed Iv/Invasive Line Start (11/08/19 20:28) Urinalysis (11/08/19 21:04) Ct Abdomen/Pelvis W (11/08/19 21:24) Ns Iv 1000 Ml (Sodium Chloride 0.9%) (11/08/19 21:24) Ondansetron Injection (Zofran Injectio (11/08/19 21:30) Ketorolac Injection (Toradol Injection) (11/08/19 21:24) Urine Culture (11/08/19 17:15) Iohexol Injection (Omnipaque 350 Mg/Ml 1 (11/08/19 22:00) Ns (Ivpb) (Sodium Chloride 0.9% Ivpb Bag (11/08/19 22:00) Rx-Nitrofurantoin Navarro (Rx-Macrobid) (11/08/19 22:45) Medications Given in ED Current Medications Medications Dose Ordered Sig/Lolis Route Start Time Stop Time Status Last Admin Dose Admin Iohexol 100 ml ONCE ONCE IV 11/08/19 22:00 11/08/19 22:21 DC 11/08/19 22:00 100 ML Ondansetron HCl 8 mg ONCE ONCE IVP 11/08/19 21:30 11/08/19 21:31 DC 11/08/19 21:38 8 MG Sodium Chloride 80 ml ONCE ONCE IV 11/08/19 22:00 11/08/19 22:21 DC 11/08/19 22:00 80 ML Sodium Chloride 1,000 ml @ 0 mls/hr Q0M ONCE IV 11/08/19 21:24 11/08/19 21:26 DC 11/08/19 21:38 0 MLS/HR Vital Signs/I&O 11/08/19 19:06 Temp 36.8 Pulse 89 Resp 17 B/P (MAP) 117/68 (84) Pulse Ox 98 O2 Delivery Room Air Capillary Refill : Less Than 3 Seconds Blood Pressure Mean: 84 Diagnostic Imaging Diagonstic Imaging: CT Plain Films/CT/US/NM/MRI: abdomen, pelvis Comments small involuting follicle or partially ruptured cyst in the right ovary. the patient is post hysterectomy. there is no evidence of pelvic abscess or fluid. findings per night hawk report. Reviewed: Reviewed [facility] Study Departure Impression Primary Impression: Right ovarian cyst Additional Impressions: Urinary tract infection S/P hysterectomy Disposition: HOME, SELF-CARE Condition: Improved Departure-Patient Inst. Decision time for Depature: 22:43 Referrals: COTY ARANA DO (PCP/Family) Primary Care Physician Patient Instructions: Urinary Tract Infections in Adults, Ovarian Cysts Add. Discharge Instructions: All discharge instructions reviewed with patient and/or family. Voiced understanding. Medications as instructed. Drink plenty of fluids. Continue usual home medications. Follow-up with Dr. Arana this week for recheck as outpatient. Return to the emergency department for worsened symptoms, fever, vomiting, rectal bleeding, or any other concerns. Scripts Nitrofurantoin Monohyd/M-Cryst (Macrobid 100 mg Capsule) 100 Mg Capsule 1 CAP PO BID, #14 CAP 0 Refills Prov: LOBO METZGER 11/08/19 LOBO METZGER Nov 08, 2019 21:39
[2019-11-08] MEDS ORDERED: IOHEXOL 350 MG/ML 100 ML (OMNIPAQUE 350) VIAL IV ONE (22:00)
[2019-11-08] MEDS ORDERED: NS 100 ML (IVPB) BAG IV ONE (22:00)
[2019-11-08] MEDS ORDERED: NITR-65 PO (22:44)
[2019-11-08] MEDS ORDERED: RX-NITROFURANTOIN 100 MG (MACROBID) CAP PPK#2 PO STA (22:45)
[2019-11-08 22:52] VITALS: BP 123/74
--- NOTE | 2019-11-09 08:23 | Diagnostic Imaging Report ---
PROCEDURE: CT abdomen and pelvis with contrast. TECHNIQUE: Multiple contiguous axial images were obtained through the abdomen and pelvis after administration of intravenous contrast. Auto Exposure Controls were utilized during the CT exam to meet ALARA standards for radiation dose reduction. DATE: November 08, 2019. COMPARISON: Pelvic ultrasound September 01, 2019. CT abdomen and pelvis August 31, 2019. INDICATION: 34-year-old female status post hysterectomy. Vaginal bleeding and discharge. FINDINGS: The visualized portions of the lung bases are clear. The heart is not enlarged. There is no pericardial effusion. The liver is normal in size and contour. There is a 3 mm low-attenuation lesion in the right lobe of the liver on axial image 38 which is too small to characterize. The main, right, and left portal veins are patent. The patient is status post cholecystectomy. There is no biliary ductal dilation. Unremarkable appearance of the pancreas and spleen. The adrenal glands are unremarkable. Unremarkable appearance of the renal parenchyma. The urinary collecting systems are not distended. There is no identified renal or ureteral stone. The urinary bladder is unremarkable. The uterus is surgically absent. There is a peripherally enhancing follicle in the right ovary on axial image 69 which measures up to 1.7 cm in maximum size. The left adnexa is grossly unremarkable in appearance. There is no identified concerning adnexal mass. The intestinal tract is not distended. The appendix is unremarkable and well seen. There is no free intraperitoneal air. There is no drainable fluid collection. There is no free pelvic fluid. There is no identified abnormally enlarged lymph node in the abdomen or pelvis which meets CT size criteria for adenopathy. There is no identified acute bony abnormality. IMPRESSION: CT ABDOMEN AND PELVIS. 1. No identified acute abnormality in the abdomen or pelvis. 2. Right ovarian follicle measuring 1.7 cm in size. Dictated by: Dictated on workstation # [id number]
== END 2019-11-08 22:52 | disposition home or self-care (01) ==
LOC: EDUNIT# 18:11 → ER 18:13
DX: N83.291 Other ovarian cyst, right side (principal); N39.0 Urinary tract infection, site not specified; J45.909 Unspecified asthma, uncomplicated; G43.909 Migraine, unspecified, not intractable, without status migrainosus; K21.9 Gastro-esophageal reflux disease without esophagitis; F41.9 Anxiety disorder, unspecified; F17.210 Nicotine dependence, cigarettes, uncomplicated; Z98.51 Tubal ligation status; Z87.442 Personal history of urinary calculi; Z87.440 Personal history of urinary (tract) infections; Z90.710 Acquired absence of both cervix and uterus; Z88.5 Allergy status to narcotic agent; Z88.2 Allergy status to sulfonamides
CPT/HCPCS: 36415; 74177; 80053; 81000; 85025; 87088

== ENCOUNTER 2019-11-28 10:31 | Emergency (ER) | payer BC ==
[~2019-11-28] VITALS: Ht 157 cm; Wt 67.6 kg
[~2019-11-28 10:31] MED LIST changes: +NITR-65 PO
[2019-11-28] MEDS ORDERED: PEN G PROC/BENZATH 1.2 M UNITS (BICILLIN C-R) SYR IM ONE (11:45)
[2019-11-28] MEDS ORDERED: PRED30SOLN PO (11:46)
--- NOTE | 2019-11-28 11:46 | ED EENT ---
History of Present Illness General Chief Complaint: Oral/Throat Problems Stated Complaint: DIFFICULTY SWALLOWING Nursing Triage Note: STATES SHE HAS HAD TROUBLE SWALLOWING SINCE HER SURGERY 6 WEEKS AGO BUT WORSE THIS PAST WEEK. Source: patient Exam Limitations: no limitations History of Present Illness Date Seen by Provider: Nov 28, 2019 Time Seen by Provider: 11:41 Initial Comments To ER with difficulty swallowing for about 6 weeks. This began after her hysterectomy. She feels like her tonsils are enlarged and feels as though the food is getting caught between the tonsils. She states water goes down okay but not as good as it used to. She has a difficult time getting food to pass. She was seen at urgent care yesterday and given Protonix because she does get frequent heartburn. She denies fevers or chills. She does report associated lower dental pain. Timing/Duration: gradual Severity: moderate Location: dental Associated Symptoms: sore throat, tooth pain Allergies and Home Medications Allergies Coded Allergies: meperidine HCl (Unverified Allergy, Severe, SEIZURE DURING , 10/07/19) morphine (Verified Allergy, Severe, SEIZURE DURING , 10/07/19) Sulfa (Sulfonamide Antibiotics) (Verified Allergy, Mild, HIVES, 10/07/19) codeine (Unverified Allergy, Mild, HIVES, 10/07/19) hydrocodone (Unverified Allergy, Mild, HIVES, 10/07/19) Home Medications Albuterol Sulfate 1 Puff Puff, 2 PUFF IH Q4H PRN for WHEEZING 1 PUFF = 90 MCG Prescribed by: BLAZE CHINCHILLA on 07/10/192019 Docusate Sodium 100 Mg Capsule, 100 MG PO BID PRN for CONSTIPATION-1ST LINE Prescribed by: COTY PARHAM on 10/13/19930 Ibuprofen 600 Mg Tablet, 600 MG PO Q6H Prescribed by: COTY PARHAM on 10/13/19 09 Nitrofurantoin Monohyd/M-Cryst 100 Mg Capsule, 1 CAP PO BID Prescribed by: LOBO METZGER on 11/08/194 Simethicone 80 Mg Tab.chew, 40 MG PO TID PRN for INDIGESTION 2ND LINE Prescribed by: COTY PARHAM on 10/13/19 09 Tramadol HCl 50 Mg Tablet, 50-100 MG PO Q8H PRN for pain Prescribed by: COTY PARHAM on 10/13/19 4618 Patient Home Medication List Home Medication List Reviewed: Yes Review of Systems Review of Systems Constitutional: see HPI Eyes: No Symptoms Reported Ears: No Symptoms Reported Nose: no symptoms reported Mouth: no symptoms reported Throat: see HPI Respiratory: no symptoms reported Cardiovascular: no symptoms reported Musculoskeletal: no symptoms reported Skin: no symptoms reported Neurological: No Symptoms Reported Hematologic/Lymphatic: No Symptoms Reported Past Lnqqlfr-Cbukij-Adcrlh Hx Patient Social History Type Used: Cigarettes 2nd Hand Smoke Exposure: Yes Recent Foreign Travel: No Contact w/Someone Who Travel: No Recent Infectious Disease Expo: No Recent Hopitalizations: Yes (Hysterectomy on 10/13/19) Immunizations Up To Date Tetanus Booster (TDap): Less than 5yrs Seasonal Allergies Seasonal Allergies: Yes Past Medical History Surgeries: Yes Section, Gallbladder, Hysterectomy, 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 Respiratory: Yes Asthma Currently Using CPAP: No Currently Using BIPAP: No Cardiac: Yes Chronic Edema/Swelling Neurological: Yes (HAD SEIZURES DURING ) Headaches /Migraines 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 Disorders: No Female 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 Disorders: Menstrual Problems, 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, 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, 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 Sexually Transmitted Disease: No HIV/AIDS: No Genitourinary: Yes Kidney Stones, UTI-Chronic Gastrointestinal: Yes Gastroesophageal Reflux, Chronic Constipation Musculoskeletal: Yes (chronic pain and edema right lower extremity) Endocrine: No HEENT: Yes (GLASSES) Loss of Vision: Denies Hearing Impairment: Denies Cancer: No Psychosocial: Yes Anxiety Integumentary: No Blood Disorders: No Adverse Reaction/Blood Tranf: No (N/A) Family Medical History No Pertinent Family Hx Physical Exam Vital Signs Vital Signs - First Documented 11/28/19 11:22 Temp 37.0 Pulse 85 Resp 16 B/P (MAP) 125/76 (92) Pulse Ox 100 O2 Delivery Room Air Height, Weight, BMI Height: 5'1.00" Weight: 165lbs. oz. 74.496689mm; 27.00 BMI Method:Stated General Appearance: WD/WN, no apparent distress Eyes: bilateral eye normal inspection, bilateral eye PERRL, bilateral eye EOMI Ears: bilateral ear auricle normal, bilateral ear canal normal, bilateral ear TM normal Mouth/Throat: dental tenderness; No mandibular swelling; other (tonsils are between grade 2 and 3, closer to grade 3. There is no erythema however or exudate.) Neck: non-tender, full range of motion; No lymphadenopathy (R), No lymphadenopathy (L) Respiratory: no respiratory distress Gastrointestinal: non tender, soft Neurologic/Psychiatric: alert, normal mood/affect, oriented x 3 Progress/Results/Core Measures Results/Orders My Orders Orders - BLAZE CHINCHILLA APRN Penicillin G Proc/Ben 1.2 Mu (Bicillin (11/28/19 11:45) Vital Signs/I&O 11/28/19 11:22 Temp 37.0 Pulse 85 Resp 16 B/P (MAP) 125/76 (92) Pulse Ox 100 O2 Delivery Room Air Blood Pressure Mean: 92 Departure Communication (Admissions) I discussed with her that we could try a shot of penicillin for the dental pain and a course of oral steroids for the tonsillar hypertrophy, however if this fails to improve her symptoms she'll need a swallow study and EGD. Impression Primary Impression: Dysphagia Qualified Codes: R13.10 - Dysphagia, unspecified Additional Impressions: Tonsillar hypertrophy Pain, dental Disposition: 01 HOME, SELF-CARE Condition: Stable Departure-Patient Inst. Decision time for Depature: 11:44 Referrals: COTY PARHAM DO (PCP/Family) Primary Care Physician Patient Instructions: Dental Pain, Dysphagia Add. Discharge Instructions: 1. Follow-up with [facility] next week for recheck. If this fails to improve your symptoms you need to discuss getting a swallow study and an EGD. All discharge instructions reviewed with patient and/or family. Voiced understanding. Scripts Prednisolone (Prednisolone) 15 Mg/5 Ml Solution 45 MG PO DAILY, #60 ML Prov: BLAZE CHINCHILLA APRN 11/28/19 BLAZE CHINCHILLA APRN Nov 28, 2019 11:46
[2019-11-28 12:25] VITALS: BP 114/78
== END 2019-11-28 12:25 | disposition home or self-care (01) ==
LOC: EDUNIT# 10:31 → ER 10:33
DX: R13.10 Dysphagia, unspecified (principal); J35.1 Hypertrophy of tonsils; K08.89 Other specified disorders of teeth and supporting structures; J45.909 Unspecified asthma, uncomplicated; Z88.5 Allergy status to narcotic agent; Z88.2 Allergy status to sulfonamides; Z77.22 Contact with and (suspected) exposure to environmental tobacco smoke (acute) (chronic)
CPT/HCPCS: 96372; 99284

== ENCOUNTER 2019-12-03 13:47 | Emergency (ER) | payer BC ==
[~2019-12-03] VITALS: Ht 165 cm; Wt 67.6 kg
[~2019-12-03 13:47] MED LIST changes: +PRED30SOLN PO
--- NOTE | 2019-12-03 13:59 | ED EENT ---
History of Present Illness General Stated Complaint: THROAT SWELLING Source: patient Exam Limitations: no limitations History of Present Illness Date Seen by Provider: Dec 03, 2019 Time Seen by Provider: 14:25 Initial Comments Ongoing sensation of throat swelling despite shot of penicillin last week, oral steroids and Zyrtec from primary care. Timing/Duration: gradual Severity: moderate Location: throat Associated Symptoms: sore throat Allergies and Home Medications Allergies Coded Allergies: meperidine HCl (Unverified Allergy, Severe, SEIZURE DURING , 10/07/19) morphine (Verified Allergy, Severe, SEIZURE DURING , 10/07/19) Sulfa (Sulfonamide Antibiotics) (Verified Allergy, Mild, HIVES, 10/07/19) codeine (Unverified Allergy, Mild, HIVES, 10/07/19) hydrocodone (Unverified Allergy, Mild, HIVES, 10/07/19) Home Medications Albuterol Sulfate 1 Puff Puff, 2 PUFF IH Q4H PRN for WHEEZING 1 PUFF = 90 MCG Prescribed by: BLAZE CHINCHILLA on 07/10/192019 Docusate Sodium 100 Mg Capsule, 100 MG PO BID PRN for CONSTIPATION-1ST LINE Prescribed by: COTY PARHAM on 10/13/19930 Ibuprofen 600 Mg Tablet, 600 MG PO Q6H Prescribed by: COTY PARHAM on 10/13/19930 Nitrofurantoin Monohyd/M-Cryst 100 Mg Capsule, 1 CAP PO BID Prescribed by: LOBO METZGER on 11/08/19 2244 Prednisolone 15 Mg/5 Ml Solution, 45 MG PO DAILY Prescribed by: BLAZE CHINCHILLA on 11/28/19 1146 Simethicone 80 Mg Tab.chew, 40 MG PO TID PRN for INDIGESTION 2ND LINE Prescribed by: COTY PARHAM on 10/13/19930 Tramadol HCl 50 Mg Tablet, 50-100 MG PO Q8H PRN for pain Prescribed by: COTY PARHAM on 10/13/19 1408 Patient Home Medication List Home Medication List Reviewed: Yes Review of Systems Review of Systems Constitutional: see HPI Eyes: No Symptoms Reported Ears: No Symptoms Reported Nose: no symptoms reported Mouth: no symptoms reported Throat: see HPI Respiratory: no symptoms reported Cardiovascular: no symptoms reported Musculoskeletal: no symptoms reported Skin: no symptoms reported Neurological: No Symptoms Reported Hematologic/Lymphatic: No Symptoms Reported Immunological/Allergic: no symptoms reported Past Lqlbglm-Bxtznc-Gbokgj Hx Patient Social History Type Used: Cigarettes 2nd Hand Smoke Exposure: Yes Recent Hopitalizations: Yes (Hysterectomy on 10/13/19) Immunizations Up To Date Tetanus Booster (TDap): Less than 5yrs Seasonal Allergies Seasonal Allergies: Yes Past Medical History Surgeries: Yes Section, Gallbladder, Hysterectomy, 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 Respiratory: Yes Asthma Currently Using CPAP: No Currently Using BIPAP: No Cardiac: Yes Chronic Edema/Swelling Neurological: Yes (HAD SEIZURES DURING ) Headaches /Migraines 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 Disorders: No Female 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 Disorders: Menstrual Problems, 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, 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, 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 Sexually Transmitted Disease: No HIV/AIDS: No Genitourinary: Yes Kidney Stones, UTI-Chronic Gastrointestinal: Yes Gastroesophageal Reflux, Chronic Constipation Musculoskeletal: Yes (chronic pain and edema right lower extremity) Endocrine: No HEENT: Yes (GLASSES) Loss of Vision: Denies Hearing Impairment: Denies Cancer: No Psychosocial: Yes Anxiety Integumentary: No Blood Disorders: No Adverse Reaction/Blood Tranf: No (N/A) Family Medical History No Pertinent Family Hx Physical Exam Vital Signs Vital Signs - First Documented 12/03/19 14:00 Temp 36.7 Pulse 93 Resp 22 B/P (MAP) 122/76 (91) Pulse Ox 98 O2 Delivery Room Air Height, Weight, BMI Height: 5'1.00" Weight: 165lbs. oz. 74.979285be; 27.00 BMI Method:Stated General Appearance: WD/WN, no apparent distress, other (drinking water, no distress) Eyes: bilateral eye normal inspection, bilateral eye PERRL, bilateral eye EOMI Ears: bilateral ear auricle normal, bilateral ear canal normal, bilateral ear TM normal Mouth/Throat: normal mouth inspection, pharynx normal Neck: non-tender, full range of motion Respiratory: no respiratory distress, no accessory muscle use Gastrointestinal: normal bowel sounds, non tender Neurologic/Psychiatric: alert, normal mood/affect, oriented x 3 Skin: normal color, warm/dry Progress/Results/Core Measures Results/Orders Vital Signs/I&O 12/03/19 14:00 Temp 36.7 Pulse 93 Resp 22 B/P (MAP) 122/76 (91) Pulse Ox 98 O2 Delivery Room Air Departure Communication (Admissions) She states the Zyrtec helps but it made her heart race. She would like to try something different. Ill try Andie. Impression Primary Impression: Dysphagia Qualified Codes: R13.10 - Dysphagia, unspecified Disposition: 01 HOME, SELF-CARE Condition: Stable Departure-Patient Inst. Decision time for Depature: 13:58 Patient Instructions: Dysphagia Add. Discharge Instructions: you still need to follow-up with primary care to discuss swallow study and EGD referral. [facility] can see you tomorrow at 10:20 to see Luis You. Scripts Loratadine (Loratadine) 10 Mg Tablet 10 MG PO DAILY, #20 TAB Prov: BLAZE CHINCHILLA APRN 12/03/19 BLAZE CHINCHILLA APRN Dec 03, 2019 13:59
[2019-12-03] MEDS ORDERED: LORA10TA7 PO (14:27)
[2019-12-03 15:00] VITALS: BP 122/76
== END 2019-12-03 15:00 | disposition home or self-care (01) ==
LOC: EDUNIT# 13:47 → ER 13:49
DX: R13.10 Dysphagia, unspecified (principal); J45.909 Unspecified asthma, uncomplicated; Z88.5 Allergy status to narcotic agent; Z88.2 Allergy status to sulfonamides
CPT/HCPCS: 99282

== ENCOUNTER 2019-12-13 18:19 | Emergency (ER) | payer BC ==
[~2019-12-13] VITALS: Ht 157 cm; Wt 64.0 kg
[~2019-12-13 18:19] MED LIST changes: +LORA10TA7 PO
[2019-12-13] MEDS ORDERED: PANT40TA3 PO (19:04)
[2019-12-13] MEDS ORDERED: LACTATED RINGERS 1,000 ML IV ONE (19:31)
[2019-12-13 19:45] LABS: BILIRUBIN,URINE NEGATIVE (NEGATIVE); CLARITY,URINE CLEAR; COLOR,URINE YELLOW; GLUCOSE, URINE (UA) NEGATIVE (NEGATIVE); KETONES,URINE 2+ (NEGATIVE); LEUKOCYTE ESTERASE ,URINE NEGATIVE (NEGATIVE); NITRITE,URINE NEGATIVE (NEGATIVE); PROTEIN,URINE NEGATIVE (NEGATIVE)
[2019-12-13 19:51] LABS: BASOPHILS # (AUTO) 0.1 10^3/uL (0.0-0.1); BASOPHILS % (AUTO) 1 % (0-10); EOSINOPHILS # (AUTO) 0.2 10^3/uL (0.0-0.3); EOSINOPHILS % (AUTO) 2 % (0-10); HEMATOCRIT 39 % (35-52); HEMOGLOBIN 13.7 G/DL (11.5-16.0); LYMPHOCYTES % (AUTO) 36 % (12-44); MEAN CORPUSCULAR HEMOGLOBIN 29 PG (25-34); MEAN CORPUSCULAR HGB CONC 35 G/DL (32-36); MEAN CORPUSCULAR VOLUME 83 FL (80-99); MEAN PLATELET VOLUME 10.8 FL (7.4-10.4); MONOCYTES # (AUTO) 0.8 X 10^3 (0.0-1.0); MONOCYTES % (AUTO) 10 % (0-12); NEUTROPHILS # (AUTO) 4.3 X 10^3 (1.8-7.8); NEUTROPHILS % (AUTO) 52 % (42-75); PLATELET COUNT 236 10^3/uL (130-400); RED CELL DISTRIBUTION WIDTH 13.8 % (10.0-14.5); WHITE BLOOD COUNT 8.4 10^3/uL (4.3-11.0)
[2019-12-13 20:08] LABS: BACTERIA,URINE FEW /HPF; RBC,URINE 0-2 /HPF; WBC,URINE 0-2 /HPF
[2019-12-13 20:10] LABS: ALANINE AMINOTRANSFERASE 24 U/L (0-55); ALBUMIN 3.9 GM/DL (3.2-4.5); ALKALINE PHOSPHATASE 95 U/L (40-136); AMYLASE 20 U/L (25-125); BILIRUBIN,TOTAL 0.5 MG/DL (0.1-1.0); BUN/CREATININE RATIO 5; CALCIUM 9.7 MG/DL (8.5-10.1); CARBON DIOXIDE 22 MMOL/L (21-32); CHLORIDE 105 MMOL/L (98-107); CREATININE SERUM 0.62 MG/DL (0.60-1.30); GFR ESTIMATED > 60; GLUCOSE 85 MG/DL (70-105); LIPASE 4 U/L (8-78); MAGNESIUM 1.6 MG/DL (1.6-2.4); POTASSIUM 3.4 MMOL/L (3.6-5.0); SODIUM 139 MMOL/L (135-145); TOTAL PROTEIN 6.5 GM/DL (6.4-8.2)
[2019-12-13 20:11] LABS: ACETAMINOPHEN < 10 UG/ML (10-30)
--- NOTE | 2019-12-13 20:17 | NUR ---
Patient awake and alert, sitting up in bed. Spouse present in room.
[2019-12-13 20:27] LABS: AMPHETAMINE SCREEN, URINE NEGATIVE (NEGATIVE); BARBITURATE SCREEN URINE NEGATIVE (NEGATIVE); BENZODIAZEPINES SCREEN URINE NEGATIVE (NEGATIVE); CANNABINOID SCREEN, URINE NEGATIVE (NEGATIVE); COCAINE SCREEN URINE NEGATIVE (NEGATIVE); METHADONE STAT NEGATIVE (NEGATIVE); METHAMPHETAMINE SCREEN URINE S NEGATIVE (NEGATIVE); OPIATE SCREEN URINE NEGATIVE (NEGATIVE); OXYCODONE STAT NEGATIVE (NEGATIVE); PROPOXYPHENE STAT NEGATIVE (NEGATIVE); TRICYCLIC ANTIDEPRESSANTS SCRE NEGATIVE (NEGATIVE)
[2019-12-13 20:30] LABS: TSH (THYROID ANALYZER) 0.34 UIU/ML (0.35-4.94)
[2019-12-13] MEDS ORDERED: IOHEXOL 350 MG/ML 100 ML (OMNIPAQUE 350) VIAL IV ONE (20:45)
[2019-12-13] MEDS ORDERED: CATHETER FLUSH 10 ML SYR IV PRN (20:45)
[2019-12-13] MEDS ORDERED: NS 100 ML (IVPB) BAG IV ONE (20:45)
[2019-12-13] MEDS ORDERED: HOLD METFORMIN - RECEIVED CONTRAST 20 ML VIAL IV SCH (20:45)
--- NOTE | 2019-12-13 20:53 | NUR ---
Patient back to room from CT.
[2019-12-13 21:08] LABS: FREE T4 (FREE THYROXINE) 1.09 NG/DL (0.70-1.48)
--- NOTE | 2019-12-13 21:10 | Diagnostic Imaging Report ---
INDICATION: Inability to swallow x 3 weeks with weight loss. TECHNIQUE: Multiple contiguous axial images were obtained through the neck after the administration of contrast. Auto Exposure Controls were utilized during the CT exam to meet ALARA standards for radiation dose reduction. COMPARISON: There is no previous study for comparison. FINDINGS: The parotid glands and submandibular glands appear symmetric. The thyroid gland shows no significant mass effect. There is perhaps a minimal 5 mm nodule in the right thyroid lobe, posteriorly. Visualized portion of the superior mediastinum appears unremarkable. The neck soft tissues show no discrete adenopathy. The piriform sinuses and vallecula appear unremarkable. There is no retropharyngeal mass effect or abscess. Bony structures are unremarkable. The visualized portions of the lung apices are clear. IMPRESSION: Incidental 5 mm right thyroid nodule without mass effect; otherwise, essentially negative CT neck soft tissues. Dictated by: Dictated on workstation # [id number]
[2019-12-13] MEDS ORDERED: METO5TAB75 PO (21:29)
[2019-12-13] MEDS ORDERED: SUCR1TAB36 PO (21:29)
[2019-12-13] MEDS ORDERED: FAMO40TA72 PO (21:29)
--- NOTE | 2019-12-13 21:29 | ED General ---
General Chief Complaint: General Problems/Pain Stated Complaint: CAN'T SWALLOW Nursing Triage Note: Patient ambulatory to ER room 10 with spouse with multiple complaints. Patient states she had a hysterectomy on Sep and since then has felt like there is a lump in her throat and she cannot swallow foods. Patient states she is able to swallow liquids fine but everytime she eats she feels like she cannot swallow. She states she has had a large amount of weight loss since the surgery. She has not been able to eat solid foods x 3 weeks. Patient states "I have been here like 4 times to be seen in ER and also seen at [facility]. Nobody listens to me". Nursing Sepsis Screen: No Definite Risk Allergies and Home Medications Allergies Coded Allergies: meperidine HCl (Unverified Allergy, Severe, SEIZURE DURING , 10/07/19) morphine (Verified Allergy, Severe, SEIZURE DURING , 10/07/19) Sulfa (Sulfonamide Antibiotics) (Verified Allergy, Mild, HIVES, 10/07/19) codeine (Unverified Allergy, Mild, HIVES, 10/07/19) hydrocodone (Unverified Allergy, Mild, HIVES, 10/07/19) Home Medications Albuterol Sulfate 1 Puff Puff, 2 PUFF IH Q4H PRN for WHEEZING 1 PUFF = 90 MCG Prescribed by: BLAZE CHINCHILLA on 07/10/192019 Docusate Sodium 100 Mg Capsule, 100 MG PO BID PRN for CONSTIPATION-1ST LINE Prescribed by: COTY PARHAM on 10/13/19930 Ibuprofen 600 Mg Tablet, 600 MG PO Q6H Prescribed by: COTY PARHAM on 10/13/19930 Loratadine 10 Mg Tablet, 10 MG PO DAILY Prescribed by: BLAZE CHINCHILLA on 12/03/19 1427 Nitrofurantoin Monohyd/M-Cryst 100 Mg Capsule, 1 CAP PO BID Prescribed by: LOBO METZGER on 11/08/19 2244 Pantoprazole Sodium 40 Mg Tablet.dr, 40 MG PO DAILY, (Reported) Prednisolone 15 Mg/5 Ml Solution, 45 MG PO DAILY Prescribed by: BLAZE CHINCHILLA on 11/28/19 1146 Simethicone 80 Mg Tab.chew, 40 MG PO TID PRN for INDIGESTION 2ND LINE Prescribed by: COTY PARHAM on 10/13/19 0931 Tramadol HCl 50 Mg Tablet, 50-100 MG PO Q8H PRN for pain Prescribed by: COTY PARHAM on 10/13/19 1408 Past Gqsswwd-Pzoqyy-Dlcbzz Hx Patient Social History Alcohol Use: Denies Use Recreational Drug Use: No Type Used: Cigarettes 2nd Hand Smoke Exposure: Yes Recent Foreign Travel: No Contact w/Someone Who Travel: No Recent Infectious Disease Expo: No Recent Hopitalizations: Yes (Hysterectomy on 10/13/19) Physical Abuse: No Sexual Abuse: No Mistreated: No Fear: No Immunizations Up To Date Tetanus Booster (TDap): Less than 5yrs PED Vaccines UTD: Yes Seasonal Allergies Seasonal Allergies: Yes Past Medical History Surgeries: Yes Section, Gallbladder, Hysterectomy, 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 Respiratory: Yes Asthma Currently Using CPAP: No Currently Using BIPAP: No Cardiac: Yes Chronic Edema/Swelling Neurological: Yes (HAD SEIZURES DURING ) Headaches /Migraines 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 Disorders: No Female 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 Disorders: Menstrual Problems, 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, Ovarian Cyst [employer] History: Hysterectomy, 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 Sexually Transmitted Disease: No HIV/AIDS: No Genitourinary: Yes Kidney Stones, UTI-Chronic Gastrointestinal: Yes Gastroesophageal Reflux, Chronic Constipation Musculoskeletal: Yes (chronic pain and edema right lower extremity) Endocrine: No HEENT: Yes (GLASSES) Loss of Vision: Denies Hearing Impairment: Denies Cancer: No Psychosocial: Yes Anxiety Integumentary: No Blood Disorders: No Adverse Reaction/Blood Tranf: No (N/A) Family Medical History No Pertinent Family Hx Physical Exam Vital Signs Vital Signs - First Documented 12/13/19 18:31 Temp 36.7 Pulse 97 Resp 16 B/P (MAP) 126/77 (93) Pulse Ox 99 O2 Delivery Room Air Capillary Refill : Less Than 3 Seconds Height, Weight, BMI Height: 5'1.00" Weight: 165lbs. oz. [id number]; 25.00 BMI Method:Stated Progress/Results/Core Measures Suspected Sepsis Recent Fever Within 48 Hours: No Infection Criteria Present: None New/Unexplained Altered Menta: No Sepsis Screen: No Definite Risk SIRS Temperature: Pulse: 97 Respiratory Rate: 16 Laboratory Tests 12/13/19 19:40: White Blood Count 8.4 Blood Pressure 126 /77 Mean: 93 Laboratory Tests 12/13/19 19:40: Creatinine 0.62, Platelet Count 236, Total Bilirubin 0.5 Results/Orders Lab Results Laboratory Tests Test 12/13/19 19:36 12/13/19 19:40 Range/Units Urine Color YELLOW Urine Clarity CLEAR Urine pH 6.0 5-9 Urine Specific [place] 1.010 L 1.016-1.022 Urine Protein NEGATIVE NEGATIVE Urine Glucose (UA) NEGATIVE NEGATIVE Urine Ketones 2+ H NEGATIVE Urine Nitrite NEGATIVE NEGATIVE Urine Bilirubin NEGATIVE NEGATIVE Urine Urobilinogen 0.2 < = 1.0 MG/DL Urine Leukocyte Esterase NEGATIVE NEGATIVE Urine RBC (Auto) 1+ H NEGATIVE Urine RBC 0-2 /HPF Urine WBC 0-2 /HPF Urine Squamous Epithelial Cells 10-25 H /HPF Urine Crystals NONE /LPF Urine Bacteria FEW H /HPF Urine Casts NONE /LPF Urine Mucus NEGATIVE /LPF Urine Culture Indicated YES Urine Opiates Screen NEGATIVE NEGATIVE Urine Oxycodone Screen NEGATIVE NEGATIVE Urine Methadone Screen NEGATIVE NEGATIVE Urine Propoxyphene Screen NEGATIVE NEGATIVE Urine Barbiturates Screen NEGATIVE NEGATIVE Ur Tricyclic Antidepressants Screen NEGATIVE NEGATIVE Urine Phencyclidine Screen NEGATIVE NEGATIVE Urine Amphetamines Screen NEGATIVE NEGATIVE Urine Methamphetamines Screen NEGATIVE NEGATIVE Urine Benzodiazepines Screen NEGATIVE NEGATIVE Urine Cocaine Screen NEGATIVE NEGATIVE Urine Cannabinoids Screen NEGATIVE NEGATIVE White Blood Count 8.4 4.3-11.0 10^3/uL Red Blood Count 4.70 4.35-5.85 10^6/uL Hemoglobin 13.7 11.5-16.0 G/DL Hematocrit 39 35-52 % Mean Corpuscular Volume 83 80-99 FL Mean Corpuscular Hemoglobin 29 25-34 PG Mean Corpuscular Hemoglobin Concent 35 32-36 G/DL Red Cell Distribution Width 13.8 10.0-14.5 % Platelet Count 236 130-400 10^3/uL Mean Platelet Volume 10.8 H 7.4-10.4 FL Neutrophils (%) (Auto) 52 42-75 % Lymphocytes (%) (Auto) 36 12-44 % Monocytes (%) (Auto) 10 0-12 % Eosinophils (%) (Auto) 2 0-10 % Basophils (%) (Auto) 1 0-10 % Neutrophils # (Auto) 4.3 1.8-7.8 X 10^3 Lymphocytes # (Auto) 3.0 1.0-4.0 X 10^3 Monocytes # (Auto) 0.8 0.0-1.0 X 10^3 Eosinophils # (Auto) 0.2 0.0-0.3 10^3/uL Basophils # (Auto) 0.1 0.0-0.1 10^3/uL Sodium Level 139 135-145 MMOL/L Potassium Level 3.4 L 3.6-5.0 MMOL/L Chloride Level 105 98-107 MMOL/L Carbon Dioxide Level 22 21-32 MMOL/L Anion Gap 12 5-14 MMOL/L Blood Urea Nitrogen 3 L 7-18 MG/DL Creatinine 0.62 0.60-1.30 MG/DL Estimat Glomerular Filtration Rate > 60 BUN/Creatinine Ratio 5 Glucose Level 85 70-105 MG/DL Calcium Level 9.7 8.5-10.1 MG/DL Corrected Calcium 9.8 8.5-10.1 MG/DL Magnesium Level 1.6 1.6-2.4 MG/DL Total Bilirubin 0.5 0.1-1.0 MG/DL Aspartate Amino Transf (AST/SGOT) 23 5-34 U/L Alanine Aminotransferase (ALT/SGPT) 24 0-55 U/L Alkaline Phosphatase 95 40-136 U/L Total Protein 6.5 6.4-8.2 GM/DL Albumin 3.9 3.2-4.5 GM/DL Amylase Level 20 L 25-125 U/L Lipase 4 L 8-78 U/L Free Thyroxine 1.09 0.70-1.48 NG/DL TSH [place] Testing 0.34 L 0.35-4.94 UIU/ML Acetaminophen Level < 10 L 10-30 UG/ML Serum Alcohol < 10 <10 MG/DL Monoscreen NEGATIVE NEGATIVE Group A Streptococcus Screen NEGATIVE NEGATIVE My Orders Orders - MINERVA SCHWAB DO Ed Iv/Invasive Line Start (12/13/19 19:31) Acetaminophen (12/13/19 19:31) Alcohol (12/13/19 19:31) Amylase (12/13/19 19:31) Cbc With Automated Diff (12/13/19:) Comprehensive Metabolic Panel (12/13/19:31) Drug Screen Stat (Urine) (12/13/19:31) Lipase (12/13/19 19:31) Magnesium (12/13/19 19:31) Monotest (12/13/19 19:31) Rapid Strep A Screen (12/13/19:) Thyroid Analyzer (2/15/20 19:31) Ua Culture If Indicated (12/13/19 19:31) Ed Iv/Invasive Line Start (12/13/19 19:31) Lactated Ringers (Lr 1000 Ml Iv Solution (12/13/19 19:31) Urine Culture (12/13/19 19:36) Free T4 (Free Thyroxine) (12/13/19 19:40) Ct Neck (Soft Tissue) W (12/13/19 20:33) Iohexol Injection (Omnipaque 350 Mg/Ml 1 (12/13/19 20:45) Received Contrast (Hold Metformin- Contr (12/13/19 20:45) Sodium Chloride Flush (Catheter Flush Sy (12/13/19 20:45) Ns (Ivpb) (Sodium Chloride 0.9% Ivpb Bag (12/13/19 20:45) Medications Given in ED Current Medications Medications Dose Ordered Sig/Lolis Route Start Time Stop Time Status Last Admin Dose Admin Iohexol 100 ml ONCE ONCE IV 12/13/19 20:45 12/13/19 20:47 DC 12/13/19 20:49 75 ML Lactated Ringer's 1,000 ml @ 0 mls/hr Q0M ONCE IV 12/13/19 19:31 12/13/19 19:34 DC 12/13/19 19:42 1,000 MLS/HR Sodium Chloride 10 ml NEEDED PRN IV 12/13/19 20:45 12/13/19 20:49 10 ML Sodium Chloride 100 ml ONCE ONCE IV 12/13/19 20:45 12/13/19 20:47 DC 12/13/19 20:49 80 ML Vital Signs/I&O 12/13/19 18:31 Temp 36.7 Pulse 97 Resp 16 B/P (MAP) 126/77 (93) Pulse Ox 99 O2 Delivery Room Air Capillary Refill : Less Than 3 Seconds Blood Pressure Mean: 93 Departure Impression Primary Impression: Globus sensation Additional Impression: GERD SYMPTOMS Disposition: 01 HOME, SELF-CARE Condition: Stable Departure-Patient Inst. Referrals: [facility] (PCP/Family) Primary Care Physician Patient Instructions: Acid Reflux (Gastroesophageal Reflux Disease), Adult (DC), Dysphagia (DC) Add. Discharge Instructions: CONTINUE PROTONIX DAILY PRESCRIBED CLEAR LIQUIDS--WATER, BROTH, JELLO, GATORADE BRATS DIET--BANANAS, RICE, APPLESAUCE, TOAST, SALTINES KEEP YOUR APPOINTMENT ON SUNDAY All discharge instructions reviewed with patient and/or family. Voiced understanding. Scripts Metoclopramide HCl (Reglan) 5 Mg Tablet 5-10 MG PO QID for STOMACH DISCOMFORT, #20 TAB Prov: MINERVA SCHWAB DO 12/13/19 Famotidine (Pepcid) 40 Mg Tablet 40 MG PO DAILY, #30 TAB Prov: MINERVA SCHWAB DO 12/13/19 Sucralfate (Carafate) 1 Gm Tablet 1 GM PO QIDACHS, #60 TAB Prov: MINERVA SCHWAB DO 12/13/19 MINERVA SCHWAB DO Dec 13, 2019 21:29
[2019-12-13 22:00] VITALS: BP 98/52
== END 2019-12-13 22:01 | disposition home or self-care (01) ==
LOC: EDUNIT# 18:19 → ER 18:20
DX: F45.8 Other somatoform disorders (principal); K21.9 Gastro-esophageal reflux disease without esophagitis; J45.909 Unspecified asthma, uncomplicated; Z88.5 Allergy status to narcotic agent; Z88.2 Allergy status to sulfonamides; Z77.22 Contact with and (suspected) exposure to environmental tobacco smoke (acute) (chronic)
CPT/HCPCS: 36415; 70491; 80053; 80306; 80320; 80329; 81000; 82150; 83690; 83735; 84439; 84443; 85025; 86308; 87088; 87430; 96360

== ENCOUNTER 2020-02-01 20:20 | Emergency (ER) | payer SELFPAY ==
[~2020-02-01] VITALS: Ht 155 cm; Wt 59.0 kg
[~2020-02-01 20:20] MED LIST changes: +FAMO40TA72 PO; +METO5TAB75 PO; +PANT40TA3 PO
--- OUTSIDE RECORDS SUMMARY | 2020-02-01 20:27 | XMS REPORT | Continuity of Care Document ---
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 ORAL SURGEON Ot Z87.448 PERSONAL HISTORY OF OTHER DISEASES OF UR 12/06/2018 MINDA, MAXI ORAL SURGEON Ot Z88.2 ALLERGY STATUS TO SULFONAMIDES STATUS 12/06/2018 MINDA, MAXI ORAL SURGEON Ot Z88.5 ALLERGY STATUS TO NARCOTIC AGENT STATUS 12/06/2018 MAXI PERLA Ot Z88.8 ALLERGY STATUS TO OTH DRUG/MEDS/BIOL SUB 12/06/2018 MAXI PERLA Ot Z98.51 TUBAL LIGATION STATUS 12/06/2018 MAXI PERLA Ot Z98.890 OTHER SPECIFIED POSTPROCEDURAL STATES 07/10/2019 BLAZE CHINCHILLA APRN Ot F17.210 NICOTINE DEPENDENCE, CIGARETTES, UNCOMPL 07/10/2019 BLAZE CHINCHILLA APRN Ot G43.909 MIGRAINE, UNSP, NOT INTRACTABLE, WITHOUT 07/10/2019 BLAZE CHINCHILLA APRN Ot J06 .9 ACUTE UPPER RESPIRATORY INFECTION, UNSPE 07/10/2019 BLAZE CHINCHILLA APRN Ot J45.909 UNSPECIFIED ASTHMA, UNCOMPLICATED 07/10/2019 BLAZE CHINCHILLA APRN Ot K21 .9 GASTRO-ESOPHAGEAL REFLUX DISEASE WITHOUT 07/10/2019 BLAZE CHINCHILLA APRN Ot R05 COUGH 07/10/2019 BLAZE CHINCHILLA APRN Ot Z87.19 PERSONAL HISTORY OF OTHER DISEASES OF TH 07/10/2019 BLAZE CHINCHILLA APRN Ot Z87.440 PERSONAL HISTORY OF URINARY (TRACT) INFE 07/10/2019 BLAZE CHINCHILLA APRN Ot Z87.442 PERSONAL HISTORY OF URINARY CALCULI 07/10/2019 BLAZE CHINCHILLA APRN Ot Z88 .2 ALLERGY STATUS TO SULFONAMIDES STATUS 07/10/2019 BLAZE CHINCHILLA APRN Ot Z88 .5 ALLERGY STATUS TO NARCOTIC AGENT STATUS 07/10/2019 BLAZE CHINCHILLA APRN Ot Z88 .6 ALLERGY STATUS TO ANALGESIC AGENT STATUS 07/10/2019 BLAZE CHINCHILLA APRN Ot Z98.51 TUBAL LIGATION STATUS 07/15/2019 BLAZE CHINCHILLA APRN Ot F17.210 NICOTINE DEPENDENCE, CIGARETTES, UNCOMPL 07/15/2019 BLAZE CHINCHILLA APRN Ot G43.909 MIGRAINE, UNSP, NOT INTRACTABLE, WITHOUT 07/15/2019 BLAZE CHINCHILLA APRN Ot J06 .9 ACUTE UPPER RESPIRATORY INFECTION, UNSPE 07/15/2019 BLAZE CHINCHILLA APRN Ot J45.909 UNSPECIFIED ASTHMA, UNCOMPLICATED 07/15/2019 BLAZE CHINCHILLA APRN Ot K21 .9 GASTRO-ESOPHAGEAL REFLUX DISEASE WITHOUT 07/15/2019 BLAZE CHINCHILLA APRN Ot R05 COUGH 07/15/2019 BLAZE CHINCHILLA APRN Ot Z87.19 PERSONAL HISTORY OF OTHER DISEASES OF 07/15/2019 BLAZE CHINCHILLA APRN Ot Z87.440 PERSONAL HISTORY OF URINARY (TRACT) INFE 07/15/2019 BLAZE CHINCHILLA APRN Ot Z87.442 PERSONAL HISTORY OF URINARY CALCULI 07/15/2019 BLAZE CHINCHILLA APRN Ot Z88 .2 ALLERGY STATUS TO SULFONAMIDES STATUS 07/15/2019 BLAZE CHINCHILLA APRN Ot Z88 .5 ALLERGY STATUS TO NARCOTIC AGENT STATUS 07/15/2019 BLAZE CHINCHILLA APRN Ot Z88 .6 ALLERGY STATUS TO ANALGESIC AGENT STATUS 07/15/2019 BLAZE CHINCHILLA APRN Ot Z98.51 TUBAL LIGATION STATUS 07/17/2019 BLAZE CHINCHILLA APRN Ot F17.210 NICOTINE DEPENDENCE, CIGARETTES, UNCOMPL 07/17/2019 BLAZE CHINCHILLA APRN Ot G43.909 MIGRAINE, UNSP, NOT INTRACTABLE, WITHOUT 07/17/2019 BLAZE CHINCHILLA APRN Ot J06 .9 ACUTE UPPER RESPIRATORY INFECTION, UNSPE 07/17/2019 BLAZE CHINCHILLA APRN Ot J45.909 UNSPECIFIED ASTHMA, UNCOMPLICATED 07/17/2019 BLAZE CHINCHILLA APRN Ot K21 .9 GASTRO-ESOPHAGEAL REFLUX DISEASE WITHOUT 07/17/2019 BLAZE CHINCHILLA APRN Ot R05 COUGH 07/17/2019 BLAZE HCINCHILLA APRN Ot Z87.19 PERSONAL HISTORY OF OTHER DISEASES OF 07/17/2019 BLAZE CHINCHILLA APRN Ot Z87.440 PERSONAL HISTORY OF URINARY (TRACT) INFE 07/17/2019 BLAZE CHINCHILLA APRN Ot Z87.442 PERSONAL HISTORY OF URINARY CALCULI 07/17/2019 BLAZE CHINCHILLA APRN Ot Z88 .2 ALLERGY STATUS TO SULFONAMIDES STATUS 07/17/2019 BLAZE CHINCHILLA APRN Ot Z88 .5 ALLERGY STATUS TO NARCOTIC AGENT STATUS 07/17/2019 BLAZE CHINCHILLA APRN Ot Z88 .6 ALLERGY STATUS TO ANALGESIC AGENT STATUS 07/17/2019 BLAZE CHINCHILLA APRN Ot Z98.51 TUBAL LIGATION STATUS 08/11/2019 CHRISTI URBAN MD Ot F17.210 NICOTINE DEPENDENCE, CIGARETTES, UNCOMPL 08/11/2019 CHRISTI URBAN MD Ot G43.909 MIGRAINE, UNSP, NOT INTRACTABLE, WITHOUT 08/11/2019 CHRISTI URBAN MD Ot J45.909 UNSPECIFIED ASTHMA, UNCOMPLICATED 08/11/2019 CHRISTI URBAN MD Ot K21. 9 GASTRO-ESOPHAGEAL REFLUX DISEASE WITHOUT 08/11/2019 CHRISTI URBAN MD Ot M25.561 PAIN IN RIGHT KNEE 08/11/2019 CHRISTI URBAN MD Ot M25.562 PAIN IN LEFT KNEE 08/11/2019 CHRISTI URBAN MD Ot W18.39XA OTHER FALL ON SAME LEVEL, INITIAL ENCOUN 08/11/2019 CHRISTI URBAN MD Ot Y92. [address] 08/11/2019 CHRISTI URBAN MD Ot Z79. 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 2 ALLERGY STATUS TO SULFONAMIDES STATUS 08/11/2019 CHRISTI URBAN MD Ot Z88. 5 ALLERGY STATUS TO NARCOTIC AGENT STATUS 08/11/2019 CHRISTI URBAN MD Ot Z98. 51 TUBAL LIGATION STATUS 08/15/2019 CHRISTI URBAN MD Ot F17.210 NICOTINE DEPENDENCE, CIGARETTES, UNCOMPL 08/15/2019 CHRISTI URBAN MD Ot G43.909 MIGRAINE, UNSP, NOT INTRACTABLE, WITHOUT 08/15/2019 CHRISTI URBAN MD Ot J45.909 UNSPECIFIED ASTHMA, UNCOMPLICATED 08/15/2019 CHRISTI URBAN MD Ot K21. 9 GASTRO-ESOPHAGEAL REFLUX DISEASE WITHOUT 08/15/2019 CHRISTI URBAN MD Ot M25.561 PAIN IN RIGHT KNEE 08/15/2019 CHRISTI URBAN MD Ot M25.562 PAIN IN LEFT KNEE 08/15/2019 CHRISTI URBAN MD Ot W18.39XA OTHER FALL ON SAME LEVEL, INITIAL ENCOUN 08/15/2019 CHRISTI URBAN MD Ot Y92. [address] 08/15/2019 CHRISTI URBAN MD Ot Z79. 52 FPC (CURRENT) USE OF SYSTEMIC STER 08/15/2019 CHRISTI URBAN MD, Ot Z87.440 PERSONAL HISTORY OF URINARY (TRACT) INFE 08/15/2019 CHRISTI URBAN MD Ot Z87.442 PERSONAL HISTORY OF URINARY CALCULI 08/15/2019 CHRISTI URBAN MD Ot Z88. 2 ALLERGY STATUS TO SULFONAMIDES STATUS 08/15/2019 CHRISTI UBRAN MD, Ot Z88. 5 ALLERGY STATUS TO NARCOTIC AGENT STATUS 08/15/2019 CHRISTI URBAN MD, Ot Z98. 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 9 GASTRO-ESOPHAGEAL REFLUX DISEASE WITHOUT 09/01/2019 YESSY DOUGHERTY MD Ot R19. 09 OTHER INTRA-ABDOMINAL AND PELVIC SWELLIN 09/01/2019 YESSY DOUGHERTY MD Ot Z77. 22 CNTCT W AND EXPSR TO ENVIRON TOBACCO SMO 09/01/2019 YESSY DOUGHERTY MD Ot Z79. 52 FPC (CURRENT) USE OF SYSTEMIC STER 09/01/2019 YESSY DOUGHERTY MD Ot Z87.440 PERSONAL HISTORY OF URINARY (TRACT) INFE 09/01/2019 YESSY DOUGHERTY MD Ot Z87.442 PERSONAL HISTORY OF URINARY CALCULI 09/01/2019 YESSY DOUGHERTY MD Ot Z88. 2 ALLERGY STATUS TO SULFONAMIDES STATUS 09/01/2019 YESSY DOUGHERTY MD Ot Z88. 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 SYSTEMIC STER 09/04/2019 BLAZE CHINCHILLA APRN Ot Z87.440 PERSONAL HISTORY OF URINARY (TRACT) INFE 09/04/2019 BLAZE CHINCHILLA APRN Ot Z87.442 PERSONAL HISTORY OF URINARY CALCULI 09/04/2019 BLAZE CHINCHILLA APRN Ot Z88 .2 ALLERGY STATUS TO SULFONAMIDES STATUS 09/04/2019 BLAZE CHINCHILLA APRN Ot Z88 .5 ALLERGY STATUS TO NARCOTIC AGENT STATUS 09/04/2019 BLAZE CHINCHILLA APRN Ot Z98.51 TUBAL LIGATION STATUS 09/05/2019 YESSY DOUGHERTY MD Ot G43.909 MIGRAINE, UNSP, NOT INTRACTABLE, WITHOUT 09/05/2019 YESSY DOUGHERTY MD Ot J45.909 UNSPECIFIED ASTHMA, UNCOMPLICATED 09/05/2019 YESSY DOUGHERTY MD Ot K21. 9 GASTRO-ESOPHAGEAL REFLUX DISEASE WITHOUT 09/05/2019 YESSY DOUGHERTY MD Ot R19. 09 OTHER INTRA-ABDOMINAL AND PELVIC SWELLIN 09/05/2019 YESSY DOUGHERTY MD Ot Z77. 22 CNTCT W AND EXPSR TO ENVIRON TOBACCO SMO 09/05/2019 YESSY DOUGHERTY MD Ot Z79. 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 2 ALLERGY STATUS TO SULFONAMIDES STATUS 09/05/2019 YESSY DOUGHERTY MD Ot Z88. 5 ALLERGY STATUS TO NARCOTIC AGENT STATUS 10/07/2019 COTY PARHAM DO S Ot D25.9 LEIOMYOMA OF UTERUS, UNSPECIFIED 10/07/2019 JOSEECH COTY MARQUEZ Ot G89.29 OTHER CHRONIC PAIN 10/07/2019 JOSEECH DOCOTY S Ot N93.9 ABNORMAL UTERINE AND VAGINAL BLEEDING, U 10/07/2019 COTY PARHAM DO S Ot R10.2 PELVIC AND PERINEAL PAIN 10/07/2019 COTY PARHAM DO S Ot Z01.818 ENCOUNTER FOR OTHER PREPROCEDURAL EXAMIN 10/10/2019 COTY PARHAM DO Ot D25.9 LEIOMYOMA OF UTERUS, UNSPECIFIED 10/10/2019 COTY PARHAM DO S Ot G89.29 OTHER CHRONIC PAIN 10/10/2019 JOSEECH COTY MARQUEZ S Ot N93.9 ABNORMAL UTERINE AND VAGINAL BLEEDING, U 10/10/2019 JOSEECH COTY MARQUEZ S Ot R10.2 PELVIC AND PERINEAL PAIN 10/10/2019 JOSEECH COTY MARQUEZ S Ot Z01.818 ENCOUNTER FOR OTHER PREPROCEDURAL EXAMIN 10/10/2019 COTY PARHAM DO S Ot D25.9 LEIOMYOMA OF UTERUS, UNSPECIFIED 10/10/2019 COTY PARHAM DO S Ot G89.29 OTHER CHRONIC PAIN 10/10/2019 JOSEECH COTY MARQUEZ S Ot N93.9 ABNORMAL UTERINE AND VAGINAL BLEEDING, U 10/10/2019 COTY PARHAM DO Ot R10.2 PELVIC AND PERINEAL PAIN 10/10/2019 COTY PARHAM DO, Ot Z01.818 ENCOUNTER FOR OTHER PREPROCEDURAL EXAMIN 10/13/2019 COTY PARHAM DO, Ot D25.9 LEIOMYOMA OF UTERUS, UNSPECIFIED 10/13/2019 COTY PARHAM DO, Ot F17.210 NICOTINE DEPENDENCE, CIGARETTES, UNCOMPL 10/13/2019 COTY PARHAM DO Ot F41.9 ANXIETY DISORDER, UNSPECIFIED 10/13/2019 COTY PARHAM DO Ot G89.29 OTHER CHRONIC PAIN 10/13/2019 COTY PARHAM DO Ot J45.909 UNSPECIFIED ASTHMA, UNCOMPLICATED 10/13/2019 COTY PARHAM DO Ot K21.9 GASTRO-ESOPHAGEAL REFLUX DISEASE WITHOUT 10/13/2019 COTY PARHAM DO Ot 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 10/13/2019 COTY PARHAM DO Ot N70.11 CHRONIC SALPINGITIS 10/13/2019 COTY PARHAM DO Ot N80.0 ENDOMETRIOSIS OF UTERUS 10/13/2019 COTY PARHAM DO Ot N93.9 ABNORMAL UTERINE AND VAGINAL BLEEDING, U 10/13/2019 COTY PARHAM DO Ot N94.5 SECONDARY DYSMENORRHEA 10/13/2019 COTY PARHAM DO Ot Z80.9 FAMILY HISTORY OF MALIGNANT NEOPLASM, UN 10/13/2019 COTY PARHAM DO Ot Z82.49 FAMILY HX OF ISCHEM HEART DIS AND OTH DI 10/13/2019 COTY PARHAM DO, Ot Z83.3 FAMILY HISTORY OF DIABETES MELLITUS 10/13/2019 COTY PARHAM DO Ot Z88.2 ALLERGY STATUS TO SULFONAMIDES STATUS 10/13/2019 COTY PARHAM DO Ot Z88.5 ALLERGY STATUS TO NARCOTIC AGENT STATUS 10/13/2019 COTY PARHAM DO Ot Z90.49 ACQUIRED ABSENCE OF OTHER SPECIFIED PART 10/13/2019 COTY PARHAM DO Ot Z98.51 TUBAL LIGATION STATUS 10/24/2019 COTY PARHAM DO Ot D25.9 LEIOMYOMA OF UTERUS, UNSPECIFIED 10/24/2019 COTY PARHAM DO Ot F17.210 NICOTINE DEPENDENCE, CIGARETTES, UNCOMPL 10/24/2019 COTY PARHAM DO Ot F41.9 ANXIETY DISORDER, UNSPECIFIED 10/24/2019 COTY PARHAM DO Ot G89.29 OTHER CHRONIC PAIN 10/24/2019 COTY PARHAM DO Ot J45.909 UNSPECIFIED ASTHMA, UNCOMPLICATED 10/24/2019 COTY PARHAM DO Ot K21.9 GASTRO-ESOPHAGEAL REFLUX DISEASE WITHOUT 10/24/2019 COTY PARHAM DO Ot 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 10/24/2019 COTY PARHAM DO Ot N70.11 CHRONIC SALPINGITIS 10/24/2019 COTY PARHAM DO Ot N80.0 ENDOMETRIOSIS OF UTERUS 10/24/2019 COTY PARHAM DO Ot N93.9 ABNORMAL UTERINE AND VAGINAL BLEEDING, U 10/24/2019 COTY PARHAM DO Ot N94.5 SECONDARY DYSMENORRHEA 10/24/2019 COTY PARHAM DO, Ot Z80.9 FAMILY HISTORY OF MALIGNANT NEOPLASM, UN 10/24/2019 COTY PARHAM DO Ot Z82.49 FAMILY HX OF ISCHEM HEART DIS AND OTH DI 10/24/2019 COTY PARHAM DO, Ot Z83.3 FAMILY HISTORY OF DIABETES MELLITUS 10/24/2019 COTY PARHAM DO, Ot Z88.2 ALLERGY STATUS TO SULFONAMIDES STATUS 10/24/2019 COTY PARHAM DO, Ot Z88.5 ALLERGY STATUS TO NARCOTIC AGENT STATUS 10/24/2019 COTY PARHAM DO Ot Z90.49 ACQUIRED ABSENCE OF OTHER SPECIFIED PART 10/24/2019 OCTY PARHAM DO Ot Z98.51 TUBAL LIGATION STATUS 11/08/2019 LOBO ANGUIANO Ot F17.210 NICOTINE DEPENDENCE, CIGARETTES, UNCOMPL 11/08/2019 LOBO ANGUIANO Ot F41.9 ANXIETY DISORDER, UNSPECIFIED 11/08/2019 LOBO ANGUIANO Ot G43.909 MIGRAINE, UNSP, NOT INTRACTABLE, WITHOUT 11/08/2019 LOBO ANGUIANO Ot J45.909 UNSPECIFIED ASTHMA, UNCOMPLICATED 11/08/2019 LOBO ANGUIANO Ot K21.9 GASTRO-ESOPHAGEAL REFLUX DISEASE WITHOUT 11/08/2019 LOBO ANGUIANO Ot N39.0 URINARY TRACT INFECTION, SITE NOT SPECIF 11/08/2019 DOMENICA PA, LOBO L Ot N83.291 OTHER OVARIAN CYST, RIGHT SIDE 11/08/2019 LOBO ANGUIANO Ot N93.9 ABNORMAL UTERINE AND VAGINAL BLEEDING, U 11/08/2019 LOBO ANGUIANO Ot Z87.440 PERSONAL HISTORY OF URINARY (TRACT) INFE 11/08/2019 LOBO ANGUIANO Ot Z87.442 PERSONAL HISTORY OF URINARY CALCULI 11/08/2019 LOBO ANGUIANO Ot Z88.2 ALLERGY STATUS TO SULFONAMIDES STATUS 11/08/2019 LOBO ANGUIANO Ot Z88.5 ALLERGY STATUS TO NARCOTIC AGENT STATUS 11/08/2019 LOBO ANGUIANO Ot Z90.710 ACQUIRED ABSENCE OF BOTH CERVIX AND UTER 11/08/2019 LOBO ANGUIANO Ot Z98.51 TUBAL LIGATION STATUS 11/12/2019 LOBO ANGUIANO Ot F17.210 NICOTINE DEPENDENCE, CIGARETTES, UNCOMPL 11/12/2019 LOBO ANGUIANO Ot F41.9 ANXIETY DISORDER, UNSPECIFIED 11/12/2019 LOBO ANGUIANO Ot G43.909 MIGRAINE, UNSP, NOT INTRACTABLE, WITHOUT 11/12/2019 LOBO ANGUIANO Ot J45.909 UNSPECIFIED ASTHMA, UNCOMPLICATED 11/12/2019 LOBO ANGUIANO Ot K21.9 GASTRO-ESOPHAGEAL REFLUX DISEASE WITHOUT 11/12/2019 LOBO ANGUIANO Ot N39.0 URINARY TRACT INFECTION, SITE NOT SPECIF 11/12/2019 LOBO ANGUIANO Ot N83.291 OTHER OVARIAN CYST, RIGHT SIDE 11/12/2019 LOBO ANGUIANO Ot N93.9 ABNORMAL UTERINE AND VAGINAL BLEEDING, U 11/12/2019 LOBO ANGUIANO Ot Z87.440 PERSONAL HISTORY OF URINARY (TRACT) INFE 11/12/2019 LOBO ANGUIANO Ot Z87.442 PERSONAL HISTORY OF URINARY CALCULI 11/12/2019 LOBO ANGUIANO Ot Z88.2 ALLERGY STATUS TO SULFONAMIDES STATUS 11/12/2019 LOBO ANGUIANO Ot Z88.5 ALLERGY STATUS TO NARCOTIC AGENT STATUS 11/12/2019 LOBO ANGUIANO Ot Z90.710 ACQUIRED ABSENCE OF BOTH CERVIX AND UTER 11/12/2019 LOBO ANGUIANO Ot Z98.51 TUBAL LIGATION STATUS 11/28/2019 CHINCHILLA, BLAZE Dior APRN Ot J35 .1 HYPERTROPHY OF TONSILS 11/28/2019 CHINCHILLA, BLAZE Dior APRN Ot J45.909 UNSPECIFIED ASTHMA, UNCOMPLICATED 11/28/2019 CHINCHILLA, BLAZE Dior FRENCH PASTRY COOK Ot K08.89 OTHER SPECIFIED DISORDERS OF TEETH AND S 11/28/2019 CHINCHILLA, BLAZE Dior APRN Ot R13.10 DYSPHAGIA, UNSPECIFIED 11/28/2019 CHINCHILLA, BLAZE Dior APRN Ot Z77.22 CNTCT W AND EXPSR TO ENVIRON TOBACCO SMO 11/28/2019 CHINCHILLA, BLAZE Dior APRN Ot Z88 .2 ALLERGY STATUS TO SULFONAMIDES STATUS 11/28/2019 CHINCHILLA, BLAZE Dior FRENCH PASTRY COOK Ot Z88 .5 ALLERGY STATUS TO NARCOTIC AGENT STATUS 12/01/2019 CHINCHILLA, BLAZE Dior APRN Ot J35 .1 HYPERTROPHY OF TONSILS 12/01/2019 CHINCHILLA, BLAZE Dior APRN Ot J45.909 UNSPECIFIED ASTHMA, UNCOMPLICATED 12/01/2019 CHINCHILLA, BLAZE Dior APRN Ot K08.89 OTHER SPECIFIED DISORDERS OF TEETH AND S 12/01/2019 CHINCHILLA, BLAZE Dior APRN Ot R13.10 DYSPHAGIA, UNSPECIFIED 12/01/2019 CHINCHILLA, BLAZE Dior APRN Ot Z77.22 CNTCT W AND EXPSR TO ENVIRON TOBACCO SMO 12/01/2019 CHINCHILLA, BLAZE Dior FRENCH PASTRY COOK Ot Z88 .2 ALLERGY STATUS TO SULFONAMIDES STATUS 12/01/2019 AMOR, BLAZE Dior APRN Ot Z88 .5 ALLERGY STATUS TO NARCOTIC AGENT STATUS 12/03/2019 AMOR, BLAZE Dior APRN Ot J45.909 UNSPECIFIED ASTHMA, UNCOMPLICATED 12/03/2019 CHINCHILLA, BLAZE Dior FRENCH PASTRY COOK Ot R13.10 DYSPHAGIA, UNSPECIFIED 12/03/2019 CHINCHILLA, BLAZE Dior FRENCH PASTRY COOK Ot Z88 .2 ALLERGY STATUS TO SULFONAMIDES STATUS 12/03/2019 CHINCHILLA, BLAZE Dior FRENCH PASTRY COOK Ot Z88 .5 ALLERGY STATUS TO NARCOTIC AGENT STATUS 12/05/2019 CHINCHILLA, BLAZE Dior FRENCH PASTRY COOK Ot J45.909 UNSPECIFIED ASTHMA, UNCOMPLICATED 12/05/2019 CHINCHILLA, BLAZE Dior FRENCH PASTRY COOK Ot R13.10 DYSPHAGIA, UNSPECIFIED 12/05/2019 CHINCHILLABLAZE FRENCH PASTRY COOK Ot Z88 .2 ALLERGY STATUS TO SULFONAMIDES STATUS 12/05/2019 BLAZE CHINCHILLA FRENCH PASTRY COOK Ot Z88 .5 ALLERGY STATUS TO NARCOTIC AGENT STATUS 12/09/2019 BLAZE CHINCHILLA FRENCH PASTRY COOK Ot J45.909 UNSPECIFIED ASTHMA, UNCOMPLICATED 12/09/2019 BLAZE CHINCHILLA FRENCH PASTRY COOK Ot R13.10 DYSPHAGIA, UNSPECIFIED 12/09/2019 BLAZE CHINCHILLA APRN Ot Z88 .2 ALLERGY STATUS TO SULFONAMIDES STATUS 12/09/2019 BLAZE CHINCHILLA FRENCH PASTRY COOK Ot Z88 .5 ALLERGY STATUS TO NARCOTIC AGENT STATUS 12/19/2019 JOSSELIN DO, MINERVA K Ot F45.8 OTHER SOMATOFORM DISORDERS 12/19/2019 JOSSELIN DO, MINERVA K Ot J45.909 UNSPECIFIED ASTHMA, UNCOMPLICATED 12/19/2019 JOSSELIN DO, MINERVA K Ot K21.9 GASTRO-ESOPHAGEAL REFLUX DISEASE WITHOUT 12/19/2019 JOSSELIN DO, MINERVA K Ot Z77.22 CNTCT W AND EXPSR TO ENVIRON TOBACCO SMO 12/19/2019 JOSSELIN DO, MINERVA K Ot Z88.2 ALLERGY STATUS TO SULFONAMIDES STATUS 12/19/2019 JOSSELIN DO, MINERVA K Ot Z88.5 ALLERGY STATUS TO NARCOTIC AGENT STATUS Procedures Code Description [place] [address] PSYT X CRISIS INITIAL 60 MIN 01/23/2013 Results Test Result Range Urine drug screening test - 06/13/16 23: 36 Urine acetaminophen detection by screening method NEGATIVE NEGATIVE Urine phencyclidine detection by screening method NEGATIVE NEGATIVE Urine benzodiazepines detection by screening method NEGATIVE NEGATIVE Urine cocaine detection NEGATIVE NEGATI VE Urine amphetamines detection by screening method N EGATIVE NEGATIVE Urine methamphetamine detection by screening method NEGATIVE NEGATIVE Urine cannabinoids detection by screening method N EGATIVE NEGATIVE Urine opiates detection by screening method NEGATI VE NEGATIVE Urine barbiturates detection NEGATIVE N EGATIVE Screening urine tricyclic antidepressants detection NEGATIVE NEGATIVE Urine methadone detection by screening method NEGA TIVE NEGATIVE Complete urinalysis with reflex to cultu re - 06/13/16 23:36 Urine color determination YELLOW NRG Urine clarity determination SLIGHTLY CLOUDY NRG Urine pH measurement by test strip 5 5-9 Specific gravity of urine by test strip 1.020 1.016-1.022 Urine protein assay by test strip, semi-quantitative NEGATIVE NEGATIVE Urine glucose detection by automated test strip NE GATIVE NEGATIVE Erythrocytes detection in urine sediment by light micr oscopy 4+ NEGATIVE Urine ketones detection by automated test strip 2+ NEGATIVE Urine nitrite detection by test strip POSITIVE NEGATIVE Urine total bilirubin detection by test strip NEGA TIVE NEGATIVE Urine urobilinogen measurement by automated test strip (mass/volume) 1 mg/dL NORMAL Urine leukocyte esterase detection by dipstick 1+ NEGATIVE Automated urine sediment erythrocyte cou nt by microscopy (number/high power field) NONE NRG Automated urine sediment leukocyte count by microscopy (number/high power field) [HPF] NRG Bacteria detection in urine sediment by light microsco py LARGE NRG Squamous epithelial cells detection in u rine sediment by light microscopy 5-10 NRG Crystals detection in urine sediment by light microsco py NONE NRG Casts detection in urine sediment by light microscopy NONE NRG Mucus detection in urine sediment by light microscopy NEGATIVE NRG Complete urinalysis with reflex to culture YES NRG Bacterial urine culture - 06/13/16 23:36 Bacterial urine culture [id number] NRG COLONY COUNT >100,000/ML NRG FTX;REPORTABLE SENSITIVITY REPORTED AT 0849, 16 NRG URINE CULTURE RESULTS PLUS NRG Bacterial susceptibility panel - 6 23:36 Gentamicin susceptibility test by minimum inhibitory c oncentration >= NRG Trimethoprim/sulfamethoxazole susceptibi lity test by minimum inhibitoryconcentration >= NRG Ampicillin susceptibility test by minimum inhibitory c oncentration <= NRG Tobramycin susceptibility test by minimum inhibitory c oncentration 8 NRG Cefazolin susceptibility test by minimum inhibitory co ncentration <= NRG Ceftriaxone susceptibility test by minimum inhibitory concentration <= NRG Ampicillin/sulbactam susceptibility test by minimum inhibitory concentration <= NRG Piperacillin/tazobactam susceptibility t est by minimum inhibitory concentration <= NRG Ciprofloxacin susceptibility test by minimum inhibitor y concentration <= NRG Meropenem susceptibility test by minimum inhibitory co ncentration <= NRG Nitrofurantoin susceptibility test by mi nimum inhibitory concentration 32 NRG Aztreonam susceptibility test by minimum inhibitory co ncentration <= NRG Extended spectrum beta lactamase (ESBL) producing bacteria susceptibility test by minimum inhibitory concentration - NRG Amikacin susceptibility test by minimum inhibitory con centration S NRG Complete blood count (CBC) with automate d white blood cell (WBC) differential - 08/08/16 12:34 Blood leukocytes automated count (number/volume) 10.2 10*3/uL 4.3-11.0 Blood erythrocytes automated count (number/volume) 4.83 10*6/uL 4.35-5.85 Venous blood hemoglobin measurement (mass/volume) 14.3 g/dL 11.5-16.0 Blood hematocrit (volume fraction) 41 % 35-52 Automated erythrocyte mean corpuscular volume 85 [ foz_us] 80-99 Automated erythrocyte mean corpuscular h emoglobin (mass per erythrocyte) 30 pg 25-34 Automated erythrocyte mean corpuscular h emoglobin concentration measurement (mass/volume) 35 g/dL 32-36 Automated erythrocyte distribution width ratio 13. 1 % 10.0- 14.5 Automated blood platelet count (count/volume) 206 10*3/uL [...] 10*3 1.0-4.0 Blood monocytes automated count (number/volume) 0. 8 10*3 0.0-1.0 Automated eosinophil count 0.1 10*3/uL 0 .0-0.3 Automated blood basophil count (count/volume) 0.1 10*3/uL 0.0-0.1 Comprehensive metabolic panel - 08/08/16 12:34 Serum or plasma sodium measurement (moles/volume) 138 mmol/L 135-145 Serum or plasma potassium measurement (moles/volume) 3.7 mmol/L 3.6-5.0 Serum or plasma chloride measurement (moles/volume) 108 mmol/L 98-107 Carbon dioxide 20 mmol/L 21-32 Serum or plasma anion gap determination (moles/volume) 10 mmol/L 5-14 Serum or plasma urea nitrogen measurement (mass/volume ) 8 mg/dL 7-18 Serum or plasma creatinine measurement (mass/volume) 0.60 mg/dL 0.60-1.30 Serum or plasma urea nitrogen/creatinine mass ratio 13 NRG Serum or plasma creatinine measurement w ith calculation of estimated glomerular filtration rate > NRG Serum or plasma glucose measurement (mass/volume) 96 mg/dL 70-105 Serum or plasma calcium measurement (mass/volume) 8.9 mg/dL 8.5-10.1 Serum or plasma total bilirubin measurement (mass/volu me) 0.3 mg/dL 0.1-1.0 Serum or plasma alkaline phosphatase elicia surement (enzymatic activity/volume) 99 U/L 40-136 Serum or plasma aspartate aminotransfera se measurement (enzymatic activity/volume) 16 U/L 5-34 Serum or plasma alanine aminotransferase measurement (enzymatic activity/volume) 18 U/L 0-55 Serum or plasma protein measurement (mass/volume) 6.5 g/dL 6.4-8.2 Serum or plasma albumin measurement (mass/volume) 4.0 g/dL 3.2-4.5 Lipase - 08/08/16 12:34 Lipase 12 U/L 8-78 Complete blood count (CBC) with automate d white blood cell (WBC) differential - 08/07/17 22:59 Blood leukocytes automated count (number/volume) 12.1 10*3/uL 4.3-11.0 Blood erythrocytes automated count (number/volume) 4.79 10*6/uL 4.35-5.85 Venous blood hemoglobin measurement (mass/volume) 13.9 g/dL 11.5-16.0 Blood hematocrit (volume fraction) 41 % 35-52 Automated erythrocyte mean corpuscular volume 86 [ foz_us] 80-99 Automated erythrocyte mean corpuscular h emoglobin (mass per erythrocyte) 29 pg 25-34 Automated erythrocyte mean corpuscular h emoglobin concentration measurement (mass/volume) 34 g/dL 32-36 Automated erythrocyte distribution width ratio 13. 2 % 10.0- 14.5 Automated blood platelet count (count/volume) 237 10*3/uL [...] 10*3 1.0-4.0 Blood monocytes automated count (number/volume) 1. 2 10*3 0.0-1.0 Automated eosinophil count 0.4 10*3/uL 0 .0-0.3 Automated blood basophil count (count/volume) 0.1 10*3/uL 0.0-0.1 Complete urinalysis with reflex to cultu re - 08/07/17 22:59 Urine color determination YELLOW NRG Urine clarity determination SLIGHTLY CLOUDY NRG Urine pH measurement by test strip 6 5-9 Specific gravity of urine by test strip 1.025 1.016-1.022 Urine protein assay by test strip, semi-quantitative 1+ NEGATIVE Urine glucose detection by automated test strip NE GATIVE NEGATIVE Erythrocytes detection in urine sediment by light micr oscopy 3+ NEGATIVE Urine ketones detection by automated test strip NE GATIVE NEGATIVE Urine nitrite detection by test strip NEGATIVE NEGATIVE Urine total bilirubin detection by test strip NEGA TIVE NEGATIVE Urine urobilinogen measurement by automated test strip (mass/volume) 1 mg/dL NORMAL Urine leukocyte esterase detection by dipstick NEG ATIVE NEGATIVE Automated urine sediment erythrocyte cou nt by microscopy (number/high power field) [HPF] NRG Automated urine sediment leukocyte count by microscopy (number/high power field) [HPF] NRG Bacteria detection in urine sediment by light microsco py FEW NRG Squamous epithelial cells detection in u rine sediment by light microscopy 25-50 NRG Crystals detection in urine sediment by light microsco py NONE NRG Casts detection in urine sediment by light microscopy NONE NRG Mucus detection in urine sediment by light microscopy NEGATIVE NRG Complete urinalysis with reflex to culture NO NRG Whole blood basic metabolic panel - 07/29 22:59 Serum or plasma sodium measurement (moles/volume) 138 mmol/L 135-145 Serum or plasma potassium measurement (moles/volume) 3.6 mmol/L 3.6-5.0 Serum or plasma chloride measurement (moles/volume) 105 mmol/L 98-107 Carbon dioxide 23 mmol/L 21-32 Serum or plasma anion gap determination (moles/volume) 10 mmol/L 5-14 Serum or plasma urea nitrogen measurement (mass/volume ) 13 mg/dL 7-18 Serum or plasma creatinine measurement (mass/volume) 0.64 mg/dL 0.60-1.30 Serum or plasma urea nitrogen/creatinine mass ratio 20 NRG Serum or plasma creatinine measurement w ith calculation of estimated glomerular filtration rate > NRG Serum or plasma glucose measurement (mass/volume) 90 mg/dL 70-105 Serum or plasma calcium measurement (mass/volume) 9.5 mg/dL 8.5-10.1 Bacteria identification in genital speci men by aerobe culture - 08/07/17 23:09 QUANTITY OF GROWTH Moderate Growth NRG Bacteria identification in genital specimen by aerobe culture [id number] NRG Microscopic examination by wet preparati on - 08/07/17 23:09 WET PREP RESULTS ER 08/07/17 [id number] BY NRG Neisseria gonorrhoeae DNA detection by p robe and signal amplification method - 08/07/17 23:09 Gonorrhea amp DNA-urine Not Detected No t Detected Chlamydia trachomatis DNA detection by p robe and signal amplification method - 08/07/17 23:09 Chlamydia trachomatis DNA detection by p robe and target amplification method Not Detected Not Detected CULTURE, URINE - 10/10/18 15:56 CULTURE, URINE, ROUTINE SEE NOTE NRG Complete urinalysis with reflex to cultu re - 12/04/18 21:30 Urine color determination YELLOW NRG Urine clarity determination CLEAR NR G Urine pH measurement by test strip 7 5-9 Specific gravity of urine by test strip 1.010 1.016-1.022 Urine protein assay by test strip, semi-quantitative NEGATIVE NEGATIVE Urine glucose detection by automated test strip NE GATIVE NEGATIVE Erythrocytes detection in urine sediment by light micr oscopy 3+ NEGATIVE Urine ketones detection by automated test strip NE GATIVE NEGATIVE Urine nitrite detection by test strip NEGATIVE NEGATIVE Urine total bilirubin detection by test strip NEGA TIVE NEGATIVE Urine urobilinogen measurement by automated test strip (mass/volume) NORMAL NORMAL Urine leukocyte esterase detection by dipstick NEG ATIVE NEGATIVE Automated urine sediment erythrocyte cou nt by microscopy (number/high power field) [HPF] NRG Automated urine sediment leukocyte count by microscopy (number/high power field) RARE NRG Bacteria detection in urine sediment by light microsco py FEW NRG Squamous epithelial cells detection in u rine sediment by light microscopy 5-10 NRG Crystals detection in urine sediment by light microsco py NONE NRG Casts detection in urine sediment by light microscopy NONE NRG Mucus detection in urine sediment by light microscopy NEGATIVE NRG Complete urinalysis with reflex to culture NO NRG RA (RHEUMATOID) FACTOR - 03/31/19 11:15 RHEUMATOID FACTOR <14 IU/mL <14 Complete urinalysis with reflex to cultu re - 08/31/19 13:44 Urine color determination YELLOW NRG Urine clarity determination CLEAR NR G Urine pH measurement by test strip 6 5-9 Specific gravity of urine by test strip 1.025 1.016-1.022 Urine protein assay by test strip, semi-quantitative NEGATIVE NEGATIVE Urine glucose detection by automated test strip NE GATIVE NEGATIVE Erythrocytes detection in urine sediment by light micr oscopy 4+ NEGATIVE Urine ketones detection by automated test strip NE GATIVE NEGATIVE Urine nitrite detection by test strip NEGATIVE NEGATIVE Urine total bilirubin detection by test strip NEGA TIVE NEGATIVE Urine urobilinogen measurement by automated test strip (mass/volume) NORMAL NORMAL Urine leukocyte esterase detection by dipstick 1+ NEGATIVE Automated urine sediment erythrocyte cou nt by microscopy (number/high power field) [HPF] NRG Automated urine sediment leukocyte count by microscopy (number/high power field) [HPF] NRG Bacteria detection in urine sediment by light microsco py FEW NRG Squamous epithelial cells detection in u rine sediment by light microscopy 5-10 NRG Crystals detection in urine sediment by light microsco py NONE NRG Casts detection in urine sediment by light microscopy NONE NRG Mucus detection in urine sediment by light microscopy SMALL NRG Complete urinalysis with reflex to culture NO NRG Complete blood count (CBC) with automate d white blood cell (WBC) differential - 08/31/19 14:20 Blood leukocytes automated count (number/volume) 11.8 10*3/uL 4.3-11.0 Blood erythrocytes automated count (number/volume) 4.85 10*6/uL 4.35-5.85 Venous blood hemoglobin measurement (mass/volume) 14.2 g/dL 11.5-16.0 Blood hematocrit (volume fraction) 41 % 35-52 Automated erythrocyte mean corpuscular volume 85 [ foz_us] 80-99 Automated erythrocyte mean corpuscular h emoglobin (mass per erythrocyte) 29 pg 25-34 Automated erythrocyte mean corpuscular h emoglobin concentration measurement (mass/volume) 34 g/dL 32-36 Automated erythrocyte distribution width ratio 13. 6 % 10.0- 14.5 Automated blood platelet count (count/volume) 269 10*3/uL 130-400 Automated blood platelet mean volume measurement 9.8 [foz_us] 7.4-10.4 Automated blood neutrophils/100 leukocytes 61 % 42-75 Automated blood lymphocytes/100 leukocytes 30 % 12-44 Blood monocytes/100 leukocytes 8 % 0-12 Automated blood eosinophils/100 leukocytes 2 % 0-10 Automated blood basophils/100 leukocytes 0 % 0-10 Blood neutrophils automated count (number/volume) 7.2 10*3 1.8-7.8 Blood lymphocytes automated count (number/volume) 3.5 10*3 1.0-4.0 Blood monocytes automated count (number/volume) 0. 9 10*3 0.0-1.0 Automated eosinophil count 0.2 10*3/uL 0 .0-0.3 Automated blood basophil count (count/volume) 0.1 10*3/uL 0.0-0.1 Comprehensive metabolic panel - 08/31/19 14:20 Serum or plasma sodium measurement (moles/volume) 139 mmol/L 135-145 Serum or plasma potassium measurement (moles/volume) 3.6 mmol/L 3.6-5.0 Serum or plasma chloride measurement (moles/volume) 107 mmol/L 98-107 Carbon dioxide 21 mmol/L 21-32 Serum or plasma anion gap determination (moles/volume) 11 mmol/L 5-14 Serum or plasma urea nitrogen measurement (mass/volume ) 11 mg/dL 7-18 Serum or plasma creatinine measurement (mass/volume) 0.68 mg/dL 0.60-1.30 Serum or plasma urea nitrogen/creatinine mass ratio 16 NRG Serum or plasma creatinine measurement w ith calculation of estimated glomerular filtration rate > NRG Serum or plasma glucose measurement (mass/volume) 101 mg/dL 70-105 Serum or plasma calcium measurement (mass/volume) 9.6 mg/dL 8.5-10.1 Serum or plasma total bilirubin measurement (mass/volu me) 0.2 mg/dL 0.1-1.0 Serum or plasma alkaline phosphatase elicia surement (enzymatic activity/volume) 111 U/L 40-136 Serum or plasma aspartate aminotransfera se measurement (enzymatic activity/volume) 19 U/L 5-34 Serum or plasma alanine aminotransferase measurement (enzymatic activity/volume) 23 U/L 0-55 Serum or plasma protein measurement (mass/volume) 6.9 g/dL 6.4-8.2 Serum or plasma albumin measurement (mass/volume) 4.0 g/dL 3.2-4.5 CALCIUM CORRECTED 9.6 mg/dL 8.5-10.1 Bacteria identification in genital speci men by aerobe culture - 08/31/19 15:11 QUANTITY OF GROWTH . NRG Bacteria identification in genital specimen by aerobe culture UVF NRG Microscopic examination by wet preparati on - 08/31/19 15:11 WET PREP RESULTS NO YEAST OBSERVED, NO TRICH OMONAS OBSERVED NRG Chlamydia trachomatis DNA detection by p robe and signal amplification method - 08/31/19 15:11 Chlamydia trachomatis DNA detection by p robe and target amplification method Not Detected Not Detected Neisseria gonorrhoeae DNA detection by p robe and signal amplification method - 08/31/19 15:11 Gonorrhea amp DNA-urine Not Detected No t Detected Methicillin resistant Staphylococcus aur eus (MRSA) screening culture - 10/07/19 08:40 Methicillin resistant Staphylococcus aureus (MRSA) scr eening culture NEG NRG Complete blood count (CBC) with automate d white blood cell (WBC) differential - 10/07/19 08:45 Blood leukocytes automated count (number/volume) 8.8 10*3/uL 4.3-11.0 Blood erythrocytes automated count (number/volume) 5.05 10*6/uL 4.35-5.85 Venous blood hemoglobin measurement (mass/volume) 14.7 g/dL 11.5-16.0 Blood hematocrit (volume fraction) 43 % 35-52 Automated erythrocyte mean corpuscular volume 84 [ foz_us] 80-99 Automated erythrocyte mean corpuscular h emoglobin (mass per erythrocyte) 29 pg 25-34 Automated erythrocyte mean corpuscular h emoglobin concentration measurement (mass/volume) 35 g/dL 32-36 Automated erythrocyte distribution width ratio 13. 4 % 10.0- 14.5 Automated blood platelet count (count/volume) 227 10*3/uL 130-400 Automated blood platelet mean volume measurement 10.8 [foz_us] 7.4-10.4 Automated blood neutrophils/100 leukocytes 70 % 42-75 Automated blood lymphocytes/100 leukocytes 20 % 12-44 Blood monocytes/100 leukocytes 9 % 0-12 Automated blood eosinophils/100 leukocytes 1 % 0-10 Automated blood basophils/100 leukocytes 1 % 0-10 Blood neutrophils automated count (number/volume) 6.2 10*3 1.8-7.8 Blood lymphocytes automated count (number/volume) 1.8 10*3 1.0-4.0 Blood monocytes automated count (number/volume) 0. 8 10*3 0.0-1.0 Automated eosinophil count 0.1 10*3/uL 0 .0-0.3 Automated blood basophil count (count/volume) 0.1 10*3/uL 0.0-0.1 Blood type T Indirect antibody screen [facility] [place] - 10/07/19 08:45 ABO+Rh group AP NRG Blood group antibody screen NEGATIVE NR G Blood type T Indirect antibody screen [facility] [place] - 10/13/19 06:15 WRISTBAND NUMBER [id number] NRG ABO+Rh group AP NRG Blood group antibody screen NEGATIVE NR G Complete urinalysis with reflex to cultu re - 11/08/19 17:15 Urine color determination YELLOW NRG Urine clarity determination CLEAR NR G Urine pH measurement by test strip 6.0 5-9 Specific gravity of urine by test strip 1.025 1.016-1.022 Urine protein assay by test strip, semi-quantitative NEGATIVE NEGATIVE Urine glucose detection by automated test strip NE GATIVE NEGATIVE Erythrocytes detection in urine sediment by light micr oscopy 2+ NEGATIVE Urine ketones detection by automated test strip NE GATIVE NEGATIVE Urine nitrite detection by test strip NEGATIVE NEGATIVE Urine total bilirubin detection by test strip NEGA TIVE NEGATIVE Urine urobilinogen measurement by automated test strip (mass/volume) 0.2 mg/dL < = 1.0 Urine leukocyte esterase detection by dipstick NEG ATIVE NEGATIVE Automated urine sediment erythrocyte cou nt by microscopy (number/high power field) NONE NRG Automated urine sediment leukocyte count by microscopy (number/high power field) [HPF] NRG Bacteria detection in urine sediment by light microsco py FEW NRG Squamous epithelial cells detection in u rine sediment by light microscopy 2-5 NRG Crystals detection in urine sediment by light microsco py PRESENT NRG Casts detection in urine sediment by light microscopy NONE NRG Mucus detection in urine sediment by light microscopy NEGATIVE NRG Complete urinalysis with reflex to culture YES NRG Amorphous sediment detection in urine sediment by ligh t microscopy FEW BLAYNE URATES NRG Bacterial urine culture - 11/08/19 17:15 Bacterial urine culture NG [facility] Complete blood count (CBC) with automate d white blood cell (WBC) differential - 11/08/19 20:35 Blood leukocytes automated count (number/volume) 14.4 10*3/uL 4.3-11.0 Blood erythrocytes automated count (number/volume) 5.06 10*6/uL 4.35-5.85 Venous blood hemoglobin measurement (mass/volume) 14.6 g/dL 11.5-16.0 Blood hematocrit (volume fraction) 42 % 35-52 Automated erythrocyte mean corpuscular volume 83 [ foz_us] 80-99 Automated erythrocyte mean corpuscular h emoglobin (mass per erythrocyte) 29 pg 25-34 Automated erythrocyte mean corpuscular h emoglobin concentration measurement (mass/volume) 35 g/dL 32-36 Automated erythrocyte distribution width ratio 13. 6 % 10.0- 14.5 Automated blood platelet count (count/volume) 248 10*3/uL 130-400 Automated blood platelet mean volume measurement 10.5 [foz_us] 7.4-10.4 Automated blood neutrophils/100 leukocytes 59 % 42-75 Automated blood lymphocytes/100 leukocytes 29 % 12-44 Blood monocytes/100 leukocytes 9 % 0-12 Automated blood eosinophils/100 leukocytes 3 % 0-10 Automated blood basophils/100 leukocytes 0 % 0-10 Blood neutrophils automated count (number/volume) 8.5 10*3 1.8-7.8 Blood lymphocytes automated count (number/volume) 4.1 10*3 1.0-4.0 Blood monocytes automated count (number/volume) 1. 3 10*3 0.0-1.0 Automated eosinophil count 0.4 10*3/uL 0 .0-0.3 Automated blood basophil count (count/volume) 0.1 10*3/uL 0.0-0.1 Comprehensive metabolic panel - 11/08/19 20:35 Serum or plasma sodium measurement (moles/volume) 137 mmol/L 135-145 Serum or plasma potassium measurement (moles/volume) 4.0 mmol/L 3.6-5.0 Serum or plasma chloride measurement (moles/volume) 106 mmol/L 98-107 Carbon dioxide 20 mmol/L 21-32 Serum or plasma anion gap determination (moles/volume) 11 mmol/L 5-14 Serum or plasma urea nitrogen measurement (mass/volume ) 10 mg/dL 7-18 Serum or plasma creatinine measurement (mass/volume) 0.65 mg/dL 0.60-1.30 Serum or plasma urea nitrogen/creatinine mass ratio 15 NRG Serum or plasma creatinine measurement w ith calculation of estimated glomerular filtration rate > NRG Serum or plasma glucose measurement (mass/volume) 99 mg/dL 70-105 Serum or plasma calcium measurement (mass/volume) 9.3 mg/dL 8.5-10.1 Serum or plasma total bilirubin measurement (mass/volu me) 0.2 mg/dL 0.1-1.0 Serum or plasma alkaline phosphatase elicia surement (enzymatic activity/volume) 103 U/L 40-136 Serum or plasma aspartate aminotransfera se measurement (enzymatic activity/volume) 17 U/L 5-34 Serum or plasma alanine aminotransferase measurement (enzymatic activity/volume) 29 U/L 0-55 Serum or plasma protein measurement (mass/volume) 6.9 g/dL 6.4-8.2 Serum or plasma albumin measurement (mass/volume) 4.0 g/dL 3.2-4.5 CALCIUM CORRECTED 9.3 mg/dL 8.5-10.1 Complete urinalysis with reflex to cultu re - 12/13/19 19:36 Urine color determination YELLOW NRG Urine clarity determination CLEAR NR G Urine pH measurement by test strip 6.0 5-9 Specific gravity of urine by test strip 1.010 1.016-1.022 Urine protein assay by test strip, semi-quantitative NEGATIVE NEGATIVE Urine glucose detection by automated test strip NE GATIVE NEGATIVE Erythrocytes detection in urine sediment by light micr oscopy 1+ NEGATIVE Urine ketones detection by automated test strip 2+ NEGATIVE Urine nitrite detection by test strip NEGATIVE NEGATIVE Urine total bilirubin detection by test strip NEGA TIVE NEGATIVE Urine urobilinogen measurement by automated test strip (mass/volume) 0.2 mg/dL < = 1.0 Urine leukocyte esterase detection by dipstick NEG ATIVE NEGATIVE Automated urine sediment erythrocyte cou nt by microscopy (number/high power field) [HPF] NRG Automated urine sediment leukocyte count by microscopy (number/high power field) [HPF] NRG Bacteria detection in urine sediment by light microsco py FEW NRG Squamous epithelial cells detection in u rine sediment by light microscopy 10-25 NRG Crystals detection in urine sediment by light microsco py NONE NRG Casts detection in urine sediment by light microscopy NONE NRG Mucus detection in urine sediment by light microscopy NEGATIVE NRG Complete urinalysis with reflex to culture YES NRG Urine drug screening test - 12/13/19 19: 36 Urine phencyclidine detection by screening method NEGATIVE NEGATIVE Urine benzodiazepines detection by screening method NEGATIVE NEGATIVE Urine cocaine detection NEGATIVE NEGATI VE Urine amphetamines detection by screening method N EGATIVE NEGATIVE Urine methamphetamine detection by screening method NEGATIVE NEGATIVE Urine cannabinoids detection by screening method N EGATIVE NEGATIVE Urine opiates detection by screening method NEGATI VE NEGATIVE Urine barbiturates detection NEGATIVE N EGATIVE Screening urine tricyclic antidepressants detection NEGATIVE NEGATIVE Urine methadone detection by screening method NEGA TIVE NEGATIVE Urine oxycodone detection NEGATIVE NEGA TIVE Urine propoxyphene detection NEGATIVE N EGATIVE Bacterial urine culture - 12/13/19 19:36 Bacterial urine culture 3 OR MORE NRG COLONY COUNT 20,000 CFU/ML NRG FTX;REPORTABLE SUGGESTING PROBABLE COLLECTION NRG FREE TEXT ENTRY 2 CONTAMINATION WITH SKIN MICK NRG FREE TEXT ENTRY 3 NO SUSCEPTIBILITY PERFORMED NRG Complete blood count (CBC) with automate d white blood cell (WBC) differential - 12/13/19 19:40 Blood leukocytes automated count (number/volume) 8.4 10*3/uL 4.3-11.0 Blood erythrocytes automated count (number/volume) 4.70 10*6/uL 4.35-5.85 Venous blood hemoglobin measurement (mass/volume) 13.7 g/dL 11.5-16.0 Blood hematocrit (volume fraction) 39 % 35-52 Automated erythrocyte mean corpuscular volume 83 [ foz_us] 80-99 Automated erythrocyte mean corpuscular h emoglobin (mass per erythrocyte) 29 pg 25-34 Automated erythrocyte mean corpuscular h emoglobin concentration measurement (mass/volume) 35 g/dL 32-36 Automated erythrocyte distribution width ratio 13. 8 % 10.0- 14.5 Automated blood platelet count (count/volume) 236 10*3/uL 130-400 Automated blood platelet mean volume measurement 10.8 [foz_us] 7.4-10.4 Automated blood neutrophils/100 leukocytes 52 % 42-75 Automated blood lymphocytes/100 leukocytes 36 % 12-44 Blood monocytes/100 leukocytes 10 % 0-12 Automated blood eosinophils/100 leukocytes 2 % 0-10 Automated blood basophils/100 leukocytes 1 % 0-10 Blood neutrophils automated count (number/volume) 4.3 10*3 1.8-7.8 Blood lymphocytes automated count (number/volume) 3.0 10*3 1.0-4.0 Blood monocytes automated count (number/volume) 0. 8 10*3 0.0-1.0 Automated eosinophil count 0.2 10*3/uL 0 .0-0.3 Automated blood basophil count (count/volume) 0.1 10*3/uL 0.0-0.1 Comprehensive metabolic panel - 12/13/19 19:40 Serum or plasma sodium measurement (moles/volume) 139 mmol/L 135-145 Serum or plasma potassium measurement (moles/volume) 3.4 mmol/L 3.6-5.0 Serum or plasma chloride measurement (moles/volume) 105 mmol/L 98-107 Carbon dioxide 22 mmol/L 21-32 Serum or plasma anion gap determination (moles/volume) 12 mmol/L 5-14 Serum or plasma urea nitrogen measurement (mass/volume ) 3 mg/dL 7-18 Serum or plasma creatinine measurement (mass/volume) 0.62 mg/dL 0.60-1.30 Serum or plasma urea nitrogen/creatinine mass ratio 5 NRG Serum or plasma creatinine measurement w ith calculation of estimated glomerular filtration rate > NRG Serum or plasma glucose measurement (mass/volume) 85 mg/dL 70-105 Serum or plasma calcium measurement (mass/volume) 9.7 mg/dL 8.5-10.1 Serum or plasma total bilirubin measurement (mass/volu me) 0.5 mg/dL 0.1-1.0 Serum or plasma alkaline phosphatase elicia surement (enzymatic activity/volume) 95 U/L 40-136 Serum or plasma aspartate aminotransfera se measurement (enzymatic activity/volume) 23 U/L 5-34 Serum or plasma alanine aminotransferase measurement (enzymatic activity/volume) 24 U/L 0-55 Serum or plasma protein measurement (mass/volume) 6.5 g/dL 6.4-8.2 Serum or plasma albumin measurement (mass/volume) 3.9 g/dL 3.2-4.5 CALCIUM CORRECTED 9.8 mg/dL 8.5-10.1 Magnesium - 12/13/19 19:40 Magnesium 1.6 mg/dL 1.6-2.4 Serum or plasma amylase measurement (enz ymatic activity/volume) - 12/13/19 19:40 Serum or plasma amylase measurement (enzymatic activit y/volume) 20 U/L 25-125 Lipase - 12/13/19 19:40 Lipase 4 U/L 8-78 Serum or plasma thyroxine (T4) free george urement (mass/volume) - 12/13/19 19:40 Serum or plasma thyroxine (T4) free measurement (mass/ volume) 1.09 ng/dL 0.70-1.48 Serum or plasma thyrotropin measurement by detection limit <=0.05 miu/l (units/volume) - 12/13/19 19:40 Serum or plasma thyrotropin measurement by detection limit <=0.05 miu/l (units/volume) 0.34 u[iU]/mL 0.35-4.94 Streptococcus pyogenes antigen detection - 12/13/19 19:40 Streptococcus pyogenes antigen detection NEGATIVE NEGATIVE Serum heterophile antibody titer - 12/13 19:40 Serum heterophile antibody titer NEGATIVE NEGATIVE Serum or plasma acetaminophen measuremen t (mass/volume) - 12/13/19 19:40 Serum or plasma acetaminophen measurement (mass/volume ) < ug/mL 10-30 Serum or plasma ethanol measurement (mas s/volume) - 12/13/19 19:40 Serum or plasma ethanol measurement (mass/volume) < mg/dL <10 Bacterial throat culture - 12/13/19 19:4 0 Bacterial throat culture NBS NRG Encounters ACCT No. Visit Date/Time Discharge Status Pt. Type Provider Facility Loc./Unit Complaint [id number] 01/21/2013 17:13:00 01/21/2013 23:59: 59 CLS Outpatient [id number] 12/04/2019 10:20:00 12/04/2019 23:59:5 9 CLS Outpatient MARQUISE COLUNGA [facility] [id number] 03/31/2019 10:40:00 Document Registration [id number] 10/10/2018 15:20:00 Document Registration [id number] 12/13/2019 18:20:00 020 22:01:00 DIS Outpatient MINERVA SCHWAB DO, [facility] ER CAN'T SWALLOW [id number] 12/03/2019 13:49:00 15:00:00 DIS Emergency BLAZE CHINCHILLA APRN [facility] ER THROAT SWELLING [id number] 11/28/2019 10:33:00 12:25:00 DIS Emergency BLAZE CHINCHILLA APRN [facility] ER DIFFICULTY SWALLOWING [id number] 11/08/2019 18:13:00 22:52:00 DIS Emergency LOBO ANGUIANO [facility] ER VAG BLEEDING, DISCHARG E, VAG PAIN [id number] 10/13/2019 06:00:00 14:45:00 DIS Outpatient COT[facility]HAM [facility] FIBROID UTERUS,CHRONIC PELVIC PAIN [id number] 10/07/2019 08:20:00 14:42:00 DIS Outpatient COTY PARHAM DO [facility] PREOP FIBROID UTERUS,CHRONIC PELVIC PAIN [id number] 09/01/2019 07:32:00 10:46:00 DIS Emergency YESSY DOUGHERTY MD [facility] ER PID-ULTRASOUND NEEDED [id number] 08/31/2019 13:35:00 15:57:00 DIS Emergency BLAZE CHINCHILLA APRN [facility] ER POSSIBLE UTI [id number] 08/11/2019 20:32:00 22:13:00 DIS Emergency CHRISTI URBAN MD [facility] ER FALL,R KNEE PAIN [id number] 07/10/2019 20:00:00 20:47:00 DIS Emergency BLAZE CHINCHILLA APRN [facility] ER COUGH, COLD LIKE SYMPTO MS [id number] 12/04/2018 21:20:00 22:43:00 DIS Emergency MAXI PERLA [facility] ER R SIDE PAIN [id number] 02/04/2018 20:30:00 22:59:00 DIS Emergency CHRISTI URBAN MD [facility] ER L SIDE FACIAL NUMBNESS/ DIZZINESS [id number] 08/07/2017 22:52:00 23:53:00 DIS Emergency BLAZE CHINCHILLA APRN [facility] ER LOW BACK PAIN [id number] 08/08/2016 11:41:00 13:20:00 DIS Emergency BLAZE CHINCHILLA APRN [facility] ER ABD PAIN [id number] 08/07/2016 15:04:00 15:39:00 DIS Emergency VIN ADELFO MARQUEZ [facility] ER RIGHT SIDE ABD PAIN [id number] 06/13/2016 23:24:00 00:37:00 DIS Emergency MINERVA SCHWAB DO [facility] ER BACK PAIN [id number] 04/04/2016 22:35:00 01:07:00 DIS Emergency SAROJ CHAMBERS, TIMUR Huggins Via [facility] ER SKIN/WOUND ISSU ES [id number] 03/10/2016 14:31:00 23:59:59 [facility] Outpatient ARI CHAMBERS, [place] Dior

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
[2020-02-01] MEDS ORDERED: LIDOCAINE 2% VISCOUS 15 ML UDC PO ONE (21:00)
[2020-02-01] MEDS ORDERED: HYOSCYAMINE 0.125 MG (LEVSIN) TAB SL ONE (21:00)
[2020-02-01] MEDS ORDERED: ANTACID SUSP 30 ML UDC (MYLANTA) PO ONE (21:00)
--- NOTE | 2020-02-01 21:18 | NUR ---
Patient states she feels like whatever was stuck in her throat has went down. She is still complaining of heartburn. patient instructed this GI cocktail will help with the heartburn. Patient able to swallow without difficulty.
[2020-02-01] MEDS ORDERED: HYOS0.1283 SL (21:31)
[2020-02-01 22:03] VITALS: BP 100/46
== END 2020-02-01 22:01 | disposition home or self-care (01) ==
LOC: EDUNIT# 20:20 → ER 20:21
DX: R13.10 Dysphagia, unspecified (principal); F45.8 Other somatoform disorders; J45.909 Unspecified asthma, uncomplicated; K21.9 Gastro-esophageal reflux disease without esophagitis; F41.9 Anxiety disorder, unspecified; F17.210 Nicotine dependence, cigarettes, uncomplicated; Z88.5 Allergy status to narcotic agent; Z88.2 Allergy status to sulfonamides
CPT/HCPCS: 99283

== ENCOUNTER → 2020-02-18 | Outpatient (CLI) | payer SELFPAY ==
[~2020-02-18] VITALS: Ht 157 cm; Wt 56.0 kg
[~2020-02-18] MED LIST changes: +HYOS0.1283 SL
== END | disposition home or self-care (01) ==
LOC: PREOP 06:05
PROVIDERS: ATTEND Surgery
DX: Z01.818 Encounter for other preprocedural examination (principal)

== ENCOUNTER 2020-02-23 08:25 | Day surgery (SDC) | payer MEDICAID, OTHER ==
[~2020-02-23] VITALS: Ht 157 cm; Wt 56.0 kg
[~2020-02-23 08:25] MED LIST changes: +LACTATED RINGERS 1,000 ML IV ONE
[2020-02-23] MEDS ORDERED: LACTATED RINGERS 1,000 ML IV STA (08:29)
[2020-02-23] MEDS ORDERED: HURRICAINE EXT TUBE (BENZOCAINE) XX PRN (08:30)
[2020-02-23 08:43] VITALS: BP 111/58
--- NOTE | 2020-02-23 09:03 | Progress Note-Pre Operative ---
Pre-Operative Progress Note H&P Reviewed The H&P was reviewed, patient examined and no changes noted. Time Seen by Provider: 08:58 Date H&P Reviewed: Feb 23, 2020 Time H&P Reviewed: 08:56 Pre-Operative Diagnosis: Dysphagia KATHLEEN CASANOVA DO Feb 23, 2020 09:03
[2020-02-23] MEDS ORDERED: HURRICAINE EXT TUBE (BENZOCAINE) ONE (09:33)
[2020-02-23] MEDS ORDERED: PROPOFOL INJECTION 50 ML IV ONE (09:48)
[2020-02-23] MEDS ORDERED: MIDAZOLAM 2 MG/2 ML (VERSED) VIAL ONE (09:48)
[2020-02-23 10:10] VITALS: BP 119/64
[2020-02-23 10:15] VITALS: BP 123/67
--- NOTE | 2020-02-23 10:19 | Progress Note-Post Operative ---
Post-Operative Progess Note Surgeon (s)/Gristmiller (s) Surgeon KATHLEEN CASANOVA DO Gristmiller: none Pre-Operative Diagnosis Dysphagia Post-Operative Diagnosis Same plus Gastritis Duodenitis Hiatal Hernia Procedure & Operative Findings Date of Procedure 02/23/20 Procedure Performed/Findings EGD with bx Anesthesia Type IV sedation by HALF BACKER Estimated Blood Loss Estimated blood loss (mL): scant Specimens/Packing Specimens Removed duodenal bx antral bx body of stomach bx GE jxn bx KATHLEEN CASANOVA DO Feb 23, 2020 10:19
--- NOTE | 2020-02-23 10:22 | Endoscopy Discharge Instruct ---
Endo Procedure/Findings Findings 1.: Gastritis 2.: Duodenal Ulcer (really more inflammation) 3.: Hiatal Hernia Discharge Instructions - Activity: You might feel a little sleepy until tomorrow. This is due to the medicine you received to relax you. Until tomorrow, you should: NOT drive a car, operate machinery or power tools. NOT drink any alcoholic beverages. NOT make any important decisions or sign importortant papers. Do not return to work until tomorrow, unless otherwise instructed. Resume previous activities tomorrow. Diet: Start by taking liquids. If you tolerate liquids, advance to solid food. make an appointment for one week 1.: EGD in 6-8 weeks Notify Physician - If you experience excessive bleeding, unusual abdominal pain, fever, or chest pain, contact your doctor immediately. KATHLEEN CASANOVA DO Feb 23, 2020 10:22
[2020-02-23 10:40] VITALS: BP 99/56
[2020-02-23 10:49] VITALS: BP 99/56
--- NOTE | 2020-02-23 10:56 | Anesthesia-General Post-Op ---
MAC Patient Condition Mental Status/LOC: Same as Preop Cardiovascular: Satisfactory Nausea/Vomiting: Absent Respiratory: Satisfactory Pain: Controlled Complications: Absent Post Op Complications Complications None Follow Up Care/Instructions Patient Instructions None needed. Anesthesiology Discharge Order Discharge Order Patient is doing well, no complaints, stable vital signs, no apparent adverse anesthesia problems. No complications reported per nursing. TANNA KEARNEY CRNA Feb 23, 2020 10:55
--- NOTE | 2020-02-23 14:34 | OPERATIVE REPORT ---
DATE OF SERVICE: PREOPERATIVE DIAGNOSIS: Dysphagia. POSTOPERATIVE DIAGNOSES: Dysphagia plus gastritis, duodenitis and hiatal hernia. PROCEDURE: EGD with biopsy. SURGEON: Sid Barker DO CHRISTIAN SCIENCE NURSE: None. ANESTHESIA: IV sedation by HOME CARE RN. SPECIMEN: Biopsy from the duodenum, one biopsy from the antrum, one biopsy of the body of stomach, one biopsy from the GE junction. BLOOD LOSS: Scant. FLUIDS: Per anesthesia. POSTOPERATIVE CONDITION: Stable. INDICATION FOR PROCEDURE: The patient is a 34-year-old female who has been having trouble swallowing, feels like dysphagia and has not been able to eat because of this, needed a workup. FINDINGS: The patient had some duodenitis, gastritis and a small hiatal hernia. No other obvious pathology. PROCEDURE NOTE: After informed consent was obtained, the patient was brought to the endoscopy suite, placed in bed in left lateral decubitus position. She was administered IV sedation by the HOME CARE RN who monitored her vitals the entire time, heart rate, blood pressure and pulse ox and the scope was inserted down the mouth through the esophagus into the stomach, did not have any problems getting through the mouth into the esophagus, did not see any obstruction. In the stomach, saw some mild inflammation of the antrum and then pushed through and saw some inflammation, almost like ulcers in the duodenum, did a biopsy here, then pulled back and did a biopsy of the antrum and then pulled the scope back and did a biopsy of body of stomach, retroflexed the scope, saw a small hiatal hernia. We had gotten into the duodenum and then the first portion of the inflammation, but the second and third portion looked okay. Pulled the scope into the GE junction, did a biopsy of the GE junction, then pushed the scope back in, suctioned all the air out of the stomach and then pulled the scope up the esophagus and out of the mouth and vocal cords looked good. Again, did not see anything higher up causing any obstruction or reason for her dysphagia. Scope was removed. The patient tolerated the procedure. She was recovered in endoscopy suite. Job ID: [id number] DocumentID: [id number] Dictated Date: 02/23/2020 10:42:38 Rn Float Date: 02/23/2020 14:32:53 Dictated By: SID BARKER DO
== END 2020-02-23 10:49 | disposition home or self-care (01) ==
LOC: ENDO 08:25
PROVIDERS: ATTEND Surgery
DX: R13.14 Dysphagia, pharyngoesophageal phase (principal); K29.70 Gastritis, unspecified, without bleeding; K29.80 Duodenitis without bleeding; K44.9 Diaphragmatic hernia without obstruction or gangrene; K21.9 Gastro-esophageal reflux disease without esophagitis; R63.4 Abnormal weight loss; J45.909 Unspecified asthma, uncomplicated; F17.210 Nicotine dependence, cigarettes, uncomplicated; Z88.5 Allergy status to narcotic agent; Z88.2 Allergy status to sulfonamides; Z88.6 Allergy status to analgesic agent; Z90.710 Acquired absence of both cervix and uterus; Z79.899 Other long term (current) drug therapy; Z85.3 Personal history of malignant neoplasm of breast; Z90.49 Acquired absence of other specified parts of digestive tract; Z83.3 Family history of diabetes mellitus; Z82.49 Family history of ischemic heart disease and other diseases of the circulatory system; Z80.9 Family history of malignant neoplasm, unspecified; Z82.62 Family history of osteoporosis

== ENCOUNTER → 2020-04-07 | Outpatient (CLI) | payer MEDICAID, OTHER ==
[~2020-04-07] MED LIST changes: +BARIUM for suspension 96% w/w (Vanilla Silq Medium Density) PO ONE; +BARIUM for suspension 98% w/w (Vanilla Silq High Density) PO ONE; -LACTATED RINGERS 1,000 ML IV ONE
--- NOTE | 2020-04-07 10:36 | Diagnostic Imaging Report ---
INDICATION: Dysphagia. 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 Heart size is normal. Lungs are clear. Pulmonary vascularity is normal. No infiltrates are seen. There is no effusion or pneumothorax. Patient left the department prior to us performing the esophagram. IMPRESSION: No acute cardiopulmonary process is detected. Dictated by: Dictated on workstation # [id number]
== END ==
LOC: RAD 08:47
PROVIDERS: ATTEND Surgery
DX: R47.02 Dysphasia (principal)
CPT/HCPCS: 74220

== ENCOUNTER 2020-05-20 19:32 | Emergency (ER) | payer MEDICAID, OTHER ==
[~2020-05-20] VITALS: Ht 157 cm; Wt 49.4 kg
[~2020-05-20 19:32] MED LIST changes: -BARIUM for suspension 96% w/w (Vanilla Silq Medium Density) PO ONE; -BARIUM for suspension 98% w/w (Vanilla Silq High Density) PO ONE
[2020-05-20 19:43] VITALS: BP 97/69
[2020-05-20] MEDS ORDERED: diphenhydrAMINE 12.5 MG/5 ML UDC (BENADRYL) PO ONE (19:45)
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
[2020-05-20] MEDS ORDERED: HYDROCORTISONE 1% CREAM 30 GM TUBE TOP SCH (21:00)
== END 2020-05-20 19:55 | disposition home or self-care (01) ==
LOC: EDUNIT# 19:32 → ER 19:34
DX: T63.481A Toxic effect of venom of other arthropod, accidental (unintentional), initial encounter (principal); J45.909 Unspecified asthma, uncomplicated; K21.9 Gastro-esophageal reflux disease without esophagitis; Z88.5 Allergy status to narcotic agent; Z88.2 Allergy status to sulfonamides
CPT/HCPCS: 99283

== ENCOUNTER 2020-05-30 11:23 | Emergency (ER) | payer MEDICAID ==
[~2020-05-30] VITALS: Ht 157.5 cm; Wt 48.5 kg
--- OUTSIDE RECORDS SUMMARY | 2020-05-30 11:28 | XMS REPORT | Clinical Summary ---
Author Author [facility] Organization [facility] Address Unknown Phone Unavailable Care Team Providers Care Demolitionist Name Role Phone Luis Raymond PA-C PCP Unavailable Source Comments Some departments are not documenting in the electronic medical record. If you d o not see the information that you expected, contact [facility] in [facility] [employer] Information Management department at [phone] for further assistan ce in locating additional records.[facility] Allergies Comments Active Allergy Reactions Severity Noted Date Morphine SEIZURES High 05/24/2020 Sulfa (Sulfonamide HIVES Medium 05/24/2020 Antibiotics) Hydrocodone-Acetaminophen HIVES Medium 04/29 Medications End Date Status Medication Sig Dispensed Refills Start Date Active pantoprazole DR 0 (PROTONIX) 40 mg tablet 0 Active ALPRAZolam (XANAX) 0.25 0 mg tablet 0 Active Problems No known active problems Encounters Care Team Description Date Type Specialty Luis Mcneill MD Weight loss (Primary Dx); Dysphagia, unspecified type 05/28/2020 Prep for Case Gastroenterology Luis Mcneill MD Weight loss (Primary Dx); Gastroesophageal reflux disease, esophagitis presence not specified; Dysphagia, unspecified type; Encounter for screening for other viral diseases 05/28/2020 Prep for Case Gastroenterology Luis Mcneill MD Care Coordination 05/28/2020 Telephone Gastroenterology Yobany Salgado MD Bansal, Ajay, MD Other dysphagia (Primary Dx) 05/24/2020 Office Visit Gastroenterology 05/24/2020 Travel from Last 3 Months Family History Medical History Relation Name Comments Heart Disease Brother Cancer-Lung Father Relation Name Status Comments Brother Father Social History Date Tobacco Use Types Packs/Day Years Used Current Every Day Smoker Smokeless Tobacco: Never Used Sex Assigned at Date Recorded Female 05/20/2020 4:00 PM CDT Industry Job Start Date Occupation Not on file Not on file Not on file Travel End Travel History Travel Start No recent travel history available. Date Recorded COVID-19 Exposure Response 05/24/2020 3:34 PM CDT In the last month, have you been in contact with No / Unsure someone who was confirmed or suspected to have Coronavirus / COVID-19? Last Filed Vital Signs Reading Time Taken Comments Vital Sign 122/54 05/24/2020 3:56 PM CDT Blood Pressure 106 05/24/2020 3:56 PM CDT Pulse 36.7 C (98 F) 05/24/2020 3:56 PM CDT Temperature - - Respiratory Rate - - Oxygen Saturation - - Inhaled Oxygen Concentration 48.5 kg (107 lb) 05/24/2020 3:56 PM CDT Weight - - Height - - Body Mass Index Plan of Treatment Health Maintenance Due Date Last Done Comments HIV SCREENING 1998 DTAP/TDAP VACCINES (1 - 2001 Tdap) HEPATITIS C SCREENING 2001 PHYSICAL (COMPREHENSIVE) 2001 EXAM CERVICAL CANCER SCREENING 2004 INFLUENZA VACCINE 07/29/2020 Results Not on filefrom Last 3 Months Insurance Type Payer Benefit Subscriber ID Effective Phone Address Plan / Dates Group Medicaid [place] [employer] xxxxxxxxxxx 2019-P [facility] Advance Directives Patient Child Care Sitter Explanation Type Date Recorded Advance Directive/DPOA
--- OUTSIDE RECORDS SUMMARY | 2020-05-30 11:29 | XMS REPORT | Encounter Summary ---
Author Author [facility] Organization [facility] Address Unknown Phone Unavailable Care Team Providers Care Elementary [employer] Teacher Name Role Phone Luis Raymond PA-C PCP Unavailable Reason for Visit * Reason Comments Weight Loss GI Problem BELCHING, REFLUX, CANT SWAL LOW, HUNGRY Constipation Diarrhea Choking On Meals * (Routine) Referred By Contact Referred To Contact Status Reason Specialty Diagnoses / Procedures Luis Raymond PA-C Pending Review Gastroenterology Diagnoses Inability to swallow Encounter Details Care Team Description Date Type Department Yobany Salgado MD [address] [place], [place] [id number] [place] [address] [place], [place] [id number] Other dysphagia (Primary Dx) 05/24/2020 Office Visit [facility] [address] [place] [address] Social History Date Tobacco Use Types Packs/Day [...] or suspected to have Coronavirus / COVID-19? documented as of this encounter Last Filed Vital Signs Reading Time Taken Comments Vital Sign 122/54 05/24/2020 3:56 PM CDT Blood Pressure 106 05/24/2020 3:56 PM CDT Pulse 36.7 C (98 F) 05/24/2020 3:56 PM CDT Temperature - - Respiratory Rate - - Oxygen Saturation - - Inhaled Oxygen Concentration 48.5 kg (107 lb) 05/24/2020 3:56 PM CDT Weight - - Height - - Body Mass Index documented in this encounter Functional Status Date of Assessment Functional Status Response 05/24/2020 Does the patient have a hearing impairment: No 05/24/2020 Does the patient have a visual impairment: No 05/24/2020 Does the patient have impaired ambulation: No 05/24/2020 Does the patient have an activity of daily living No (ADL) impairment: 05/24/2020 Does the patient have an instrumental activity of No daily living (IADL) impairment: Date of Assessment Cognitive Status Response 05/24/2020 Does the patient have a cognitive impairment: No documented as of this encounter Progress Notes * Luis Mcneill MD - 05/24/2020 4:00 PM CDT Date of Service: 05/24/2020 Danny Wylie is a 35 y.o. female Chief Complaint Refractory dysphagia, anxiety, weight loss, here for a second opinion, accompani ed by her Referred by: Luis Raymond PA-C, [facility] in [place] No current outpatient medications on file. History of Present Illness -History of cholecystectomy, , hysterectomy, tubal ligation -History of asthma CT showed right ovarian cyst Old records outside records -Barium esophagogram on 2020 results unavailable -Chronic dysphagia, burning, nausea but without vomiting -On November 08, 2019 -Complains of frequent heartburn -"eports food gets caught between my tonsils" -CT neck on December 13, 2019 for incidental 5 mm right thyroid nodule, otherwis e negative -Swallowing problems began after hysterectomy approximately 6 weeks ago in 2019. The patient reports that he feels that her tonsils are enlarged and t he food is getting caught between the tonsils. -CT of the abdomen and pelvis on April 08, 2020 showed a 3 mm low-attenuation les ion in the right lobe of the liver. CBD was normal. Normal pancreas. Normal k idneys. A follicular cyst in the right ovary approximately 1.7 cm. Appendix is unremarkable. On October 07, 2019, blood cell count is 8.8, hemoglobin is 14.7 WBC was 8.8, h emoglobin 14.7, platelet 227, AST of 19, AST of 23, alkaline phosphatase of 111, albumin of 4.0, total bilirubin of 0.2. -Pelvic ultrasound in August 2019 showed an enlarged right ovary I reviewed approximately 75 pages of outside records that took me 35 minutes to review. The patient reports that she has been having extreme difficulty with swallowing. The symptoms began after hysterectomy on October 13, 2020. She reports that she is unable to eat solid food including breads and meat. Even swallowing wate r can be a problem. The patient reports that last she had no dysph agia. Her weight was 170 pounds. Her current weight is 107 pounds. The day of hysterectomy the patient woke up and started having difficulty swallowing. She was reassured and was given topical treatments to help with swallowing. However the the swallowing has never improved. Starting October, the symptoms got very bad. Currently she can eat gravy but not breads or meat. In morning her swal lowing is better but but gets progressively worse. Reportedly the patient under went endoscopy in outside hospital, results unavailable, per patient it showed " very tight"; however no dilation was performed. The patient does complain of n saud pain. 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 She denies heartburn or reflux or osbaldo mignon or hematochezia or hematemesis. The symptoms have significantly affected he r quality of life Family History Grandmother had Crohn's disease. There is no history of esophageal cancer. Social History The patient used to routinely lift 20 pounds of weight till last year. She show ed me a picture of the documented her weight of 170 pounds and showed how muscul ar she was. Review of systems The ROS was positive for weight loss.A 10 point review of systems was otherwise negative. Physical Exam Vitals: 05/24/20 1556 BP: 122/54 Pulse: 106 Temp: 36.7 C (98 F) She showed me a picture of the documented her weight of 170 pounds and showed ho w muscular she was. Constitutional alert, cooperative, no distress, malnourished Psychiatric Calm manner, mood appears normal, Head Normocephalic, without obvious abnormality, atraumatic Eyes conjunctivae/corneas clear. EOM's intact. pupils equally round, accommodat ion normal. Nose Nares normal. No drainage or sinus tenderness. Throat Lips, mucosa, and tongue normal. Teeth and gums normal Neck supple, symmetrical, trachea midline, and no JVD Musculoskeletal No joint swelling or eythema or tenderness of ankle, wrist, kne e joints Respiratory No tachypnea. No use of accessory muscles for breathing Cardiovascular regular rate and rhythm, no pedal edema, pulses 2+ and symmetri c Gastrointestinal soft, non-tender, no masses, No organomegaly Skin Skin color, texture, turgor normal. No rashes or lesions Neurologic No focal findings Review of Labs On October 07, 2019, blood cell count is 8.8, hemoglobin is 14.7 WBC was 8.8, h emoglobin 14.7, platelet 227, AST of 19, AST of 23, alkaline phosphatase of 111, albumin of 4.0, total bilirubin of 0.2. Radiology/Other Diagnostic Tests -Barium esophagogram on 2020 results unavailable Assessment and Plan A 35-year-old white female, accompanied by her , is here to discuss her c omplaints of refractory dysphagia that began the day after hysterectomy on Decem 2019. She is unable to swallow any solid food and even water can be a p roblem. She has lost a total of 63 pounds of weight since last year. The patie nt reports that she had an upper endoscopy in the outside where she was told it was very tight but no dilation was performed. The patient continues to struggle with the symptoms. The differential diagnosis broad and should include esophag eal stricture versus achalasia versus eosinophilic esophagitis; esophageal cance r is also possibility. CT neck did not find a mechanical explanation. We discussed the differential diagnosis. We told the patient that based on the diagnosis, she might need dilation to help her swallowing. The patient was inte rested in having a feeding tube placed to gain weight. I offered her that inste ad of using the feeding tube, we would place a nasojejunal feeding tube to help her gain weight temporarily. However it is imperative that the patient undergoe s a thorough investigation promptly to rule out all possible explanations for dy sphagia to stem her weight loss and to restore her quality of life. Suggest 1. Urgent upper endoscopy and manometry on the same day. 2. Video swallow along with timed barium esophagogram 3. Follow-up in the clinic in next 1 to 3 months, but we will stay in communica tion with the patient. 4. The patient was provided the information to call me with any questions. Additional time: I also spent 35 minutes reviewing approximately 45 pages of rec ords records of outside colonoscopy surgical records and pathology along with de tailed oncology records, colonoscopy and pathology results along with results of imaging and labs. These are documented in various parts of this note. documented in this encounter Plan of Treatment Not on filedocumented as of this encounter Visit Diagnoses Diagnosis Other dysphagia documented in this encounter
--- OUTSIDE RECORDS SUMMARY | 2020-05-30 11:29 | XMS REPORT | Encounter Summary ---
Author Author [facility] Organization [facility] Address Unknown Phone Unavailable Care Team Providers Care Vmware Architect Name Role Phone Luis Raymond PA-C PCP Unavailable Encounter Details Care Team Description Date [place] [address] [place], [place] [address] Weight loss (Primary Dx); Dysphagia, unspecified type 05/28/2020 Prep for Case [facility] [address] [place] [address] Social History Date Tobacco Use [...] / COVID-19? documented as of this encounter Functional Status Date of Assessment [...] impairment: No documented as of this encounter Plan of Treatment Not on filedocumented as of this encounter Visit Diagnoses Diagnosis Weight loss Loss of weight Dysphagia, unspecified type documented in this encounter
--- OUTSIDE RECORDS SUMMARY | 2020-05-30 11:29 | XMS REPORT | Encounter Summary ---
Author Author [facility] Organization [facility] Address Unknown Phone Unavailable Care Team Providers Care Railcar Foreman Name Role Phone Luis Raymond PA-C PCP Unavailable Reason for Visit * Reason Comments Care Coordination Encounter Details Care Team Description Date [place] [address] [place] [address] [phone] Care Coordination 05/28/[address] [id number] Social History Date Tobacco Use Types [...] impairment: No documented as of this encounter Miscellaneous Notes * Telephone Encounter - Thea Herndon RN - 05/28/2020 4:[address] Mcneill for patient's plan of care: - Urgent EGD, within 1 week any attending. - include HRM same day if possible - Timed Barium Esophagram - Video Swallow. Orders placed at this time, will coordinate with Endoscopy scheduling for date/t shelley and discuss prep instructions with patient. documented in this encounter Plan of Treatment Not on filedocumented as of this encounter Visit Diagnoses Diagnosis Other dysphagia documented in this encounter
--- OUTSIDE RECORDS SUMMARY | 2020-05-30 11:29 | XMS REPORT | Encounter Summary ---
Author Author [facility] Organization [facility] Address Unknown Phone Unavailable Care Team Providers Care Segmental Paver Installer Name Role Phone Luis Raymond PA-C PCP Unavailable Encounter Details Care Team Description Date Type Department 05/24/2020 Travel Social History Date Tobacco Use Types Packs/Day [...] filedocumented as of this encounter Visit Diagnoses Not on filedocumented in this encounter
--- OUTSIDE RECORDS SUMMARY | 2020-05-30 11:29 | XMS REPORT | Encounter Summary ---
Author Author [facility] Organization [facility] Address Unknown Phone Unavailable Care Team Providers Care Book Cleaner Name Role Phone Luis Raymond PA-C PCP Unavailable Encounter Details Care Team Description Date [place] [address] [place] [address] [phone] Weight loss (Primary Dx); Gastroesophageal reflux disease, esophagitis presence not specified; Dysphagia, unspecified type; Encounter for screening for other viral diseases 05/28/2020 Prep for Case [facility] [address] [place] [phone] Social History Date Tobacco Use Types Packs/Day [...] as of this encounter Plan of Treatment Order Schedule Name Type Priority Associated Diag noses Expected: 05/28/2020 (Approximate), Expi res: 05/28/2021 COVID-19 (SARS-COV-2) PCR Microbiology Routine Enco unter for screening for other viral diseases documented as of this encounter Visit Diagnoses Diagnosis Weight loss Loss of weight Gastroesophageal reflux disease, esopha gitis presence not specified Dysphagia, unspecified type Encounter for screening for other viral diseases documented in this encounter
[2020-05-30 11:30] VITALS: BP 114/66
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
[2020-05-30] MEDS ORDERED: cefTRIAXone 1,000 MG/2.86 ml vial (IM ONLY) ONE (11:36)
[2020-05-30] MEDS ORDERED: CEPH250S PO (11:38)
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
[2020-05-30] MEDS ORDERED: LIDOCAINE 1% INJ 20 ML 20 ML VIAL INJ ONE (11:45)
[2020-05-31] MEDS ORDERED: cefTRIAXone 1,000 MG/2.86 ml vial (IM ONLY) IM SCH (09:00)
== END 2020-05-30 11:46 | disposition home or self-care (01) ==
LOC: EDUNIT# 11:23 → ER 11:24
DX: A46 Erysipelas (principal)
CPT/HCPCS: 99284

== ENCOUNTER 2020-10-27 19:24 | Emergency (ER) | payer MEDICAID ==
[~2020-10-27] VITALS: Ht 157.5 cm; Wt 45.5 kg
[~2020-10-27 19:24] MED LIST changes: +CEPH250S PO; -PANT40TA3; -PANT40TA3 PO; +PANT40TA52; +PANT40TA52 PO
[2020-10-27 19:43] VITALS: BP 123/70
--- NOTE | 2020-10-27 19:59 | ED Chest Pain ---
General Chief Complaint: Chest Wall Stated Complaint: COUGH/CHEST PAIN/COVID EXPOSED Source: patient Exam Limitations: no limitations History of Present Illness Date Seen by Provider: Oct 27, 2020 Time Seen by Provider: 19:45 Initial Comments This is a well appearing 35 yo female who presented to the ER with complaints of chest wall pain, cough, and recent COVID exposure on Sunday. States she feels well overall, but wanted to get checked out just in case. Allergies and Home Medications Allergies Coded Allergies: meperidine HCl (Unverified Allergy, Severe, SEIZURE DURING , 02/18/20) morphine (Verified Allergy, Severe, SEIZURE DURING , 02/18/20) Sulfa (Sulfonamide Antibiotics) (Verified Allergy, Mild, HIVES, 02/18/20) codeine (Unverified Allergy, Mild, HIVES, 02/18/20) hydrocodone (Unverified Allergy, Mild, HIVES, 02/18/20) Home Medications Albuterol Sulfate 1 Puff Puff, 2 PUFF IH Q4H PRN for WHEEZING 1 PUFF = 90 MCG Prescribed by: BLAZE CHINCHILLA on 07/10/192019 Cephalexin 250 Mg/5 Ml Susp.recon, 500 MG PO TID Prescribed by: BLAZE CHINCHILLA on 05/30/20 113 Pantoprazole Sodium 40 Mg Tablet.dr, 40 MG PO DAILY, (Reported) Patient Home Medication List Home Medication List Reviewed: Yes Review of Systems Review of Systems Constitutional: no symptoms reported EENTM: No Symptoms Reported Respiratory: See HPI Cardiovascular: See HPI Gastrointestinal: No Symptoms Reported Genitourinary: No Symptoms Reported Musculoskeletal: no symptoms reported Skin: no symptoms reported Psychiatric/Neurological: No Symptoms Reported Endocrine: No Symptoms Reported Hematologic/Lymphatic: No Symptoms Reported Past Qqwgnfe-Gvowdz-Ygfmna Hx Patient Social History Type Used: Cigarettes 2nd Hand Smoke Exposure: Yes Recent Foreign Travel: No Contact w/Someone Who Travel: No Recent Hopitalizations: No Immunizations Up To Date Tetanus Booster (TDap): Less than 5yrs PED Vaccines UTD: Yes Seasonal Allergies Seasonal Allergies: Yes Past Medical History Surgeries: Yes ( X 5; BTL; HYST/OVARIES INTACT; CHOLECYSTECTOMY) Section, Gallbladder, Hysterectomy, 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 Respiratory: Yes Asthma Currently Using CPAP: No Currently Using BIPAP: No Cardiac: Yes (CHRONIC SWELLING RIGHT LEG) Chronic Edema/Swelling Neurological: Yes (HAD SEIZURE X 1 AFTER , WHILE IN RECOVERY) Headaches /Migraines 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 Disorders: Yes (CHRONIC PELVIC PAIN, DYSFUNCTIONAL UTERINE BLE EDING. 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9 Pulse 105 Resp 18 B/P (MAP) 123/70 (87) Pulse Ox 99 O2 Delivery Room Air Capillary Refill : Height, Weight, BMI Height: 5'1.00" Weight: 165lbs. oz. 74.364295of; 19.00 BMI Method:Stated General Appearance: No Apparent Distress, WD/WN Neck: Full Range of Motion, Normal Inspection Respiratory: No Accessory Muscle Use, No Respiratory Distress Neurologic/Psychiatric: Alert, Oriented x3, Normal Mood/Affect Skin: Normal Color Progress/Results/Core Measures Results/Orders Lab Results Laboratory Tests Test 10/27/20 20:00 Range/Units White Blood Count 12.5 H 4.3-11.0 10^3/uL Red Blood Count 4.88 3.80-5.11 10^6/uL Hemoglobin 14.6 11.5-16.0 g/dL Hematocrit 43 35-52 % Mean Corpuscular Volume 87 80-99 fL Mean Corpuscular Hemoglobin 30 25-34 pg Mean Corpuscular Hemoglobin Concent 34 32-36 g/dL Red Cell Distribution Width 12.7 10.0-14.5 % Platelet Count 216 130-400 10^3/uL Mean Platelet Volume 10.5 9.0-12.2 fL Immature Granulocyte % (Auto) 0 % Neutrophils (%) (Auto) 59 42-75 % Lymphocytes (%) (Auto) 31 12-44 % Monocytes (%) (Auto) 8 0-12 % Eosinophils (%) (Auto) 2 0-10 % Basophils (%) (Auto) 1 0-10 % Neutrophils # (Auto) 7.3 1.8-7.8 10^3/uL Lymphocytes # (Auto) 3.8 1.0-4.0 10^3/uL Monocytes # (Auto) 1.0 0.0-1.0 10^3/uL Eosinophils # (Auto) 0.2 0.0-0.3 10^3/uL Basophils # (Auto) 0.1 0.0-0.1 10^3/uL Immature Granulocyte # (Auto) 0.1 0.0-0.1 10^3/uL Sodium Level 135 135-145 MMOL/L Potassium Level 3.5 L 3.6-5.0 MMOL/L Chloride Level 102 98-107 MMOL/L Carbon Dioxide Level 24 21-32 MMOL/L Anion Gap 9 5-14 MMOL/L Blood Urea Nitrogen 14 7-18 MG/DL Creatinine 0.63 0.60-1.30 MG/DL Estimat Glomerular Filtration Rate > 60 BUN/Creatinine Ratio 22 Glucose Level 101 70-105 MG/DL Calcium Level 9.2 8.5-10.1 MG/DL Corrected Calcium 9.0 8.5-10.1 MG/DL Total Bilirubin 0.3 0.1-1.0 MG/DL Aspartate Amino Transf (AST/SGOT) 22 5-34 U/L Alanine Aminotransferase (ALT/SGPT) 35 0-55 U/L Alkaline Phosphatase 72 40-136 U/L Troponin I < 0.028 <0.028 NG/ML Total Protein 7.3 6.4-8.2 GM/DL Albumin 4.3 3.2-4.5 GM/DL Coronavirus 2019 (RUY) Negative Negative My Orders Orders - UMER PERSON APRN Cbc With Automated Diff (10/27/20 19:51) Ekg Tracing (10/27/20 19:51) Comprehensive Metabolic Panel (10/27/20 19:51) Troponin I (10/27/20 19:51) Covid 19 Inhouse Test (10/27/20 19:51) Albuterol Inhaler (Ventolin Hfa) (10/27/20 22:00) Albuterol Inhaler (Ventolin Hfa) (10/27/20 20:04) Vital Signs/I&O 12/30/20 19:43 Temp 36.9 Pulse 105 Resp 18 B/P (MAP) 123/70 (87) Pulse Ox 99 O2 Delivery Room Air Progress Progress Note : Progress Note Upon arrival she is breathing easy with no signs of respiratory distress. Initiated COVID precautions. Prior to completing examination, I was pulled away to address a critical patient. Will order basic labs, rapid COVID, EKG, Troponin, and CXR. Patient walked out of the ER without full examination or results of pending tests. Reportedly told RN that she feels fine and was going home. Was able to review labs although patient had discharged, reassuring that EKG showed non specific changes and troponin was negative. However she was noted to have an elevated white count and potassium of 3.5. EKG : Rate: 103 Rhythm: S.Tach ECG Impression: Nonspecific Changes Departure Impression Primary Impression: Cough Additional Impression: COVID-19 ruled out by laboratory testing Disposition: AGAINST MEDICAL ADVICE Condition: Stable Departure-Patient Inst. Decision time for Depature: 19:59 Referrals: [facility] [place] (PCP/Family) Primary Care Physician Add. Discharge Instructions: LEFT AMA All discharge instructions reviewed with patient and/or family. Voiced understanding. UMER PERSON PATIENT RELATIONS COORDINATOR Oct 27, 2020 19:59
[2020-10-27] MEDS ORDERED: RT-ALBUTEROL INHALER HFA (VENTOLIN HFA) 18 GM IH ONE (20:04)
[2020-10-27 20:13] LABS: BASOPHILS # (AUTO) 0.1 10^3/uL (0.0-0.1); BASOPHILS % (AUTO) 1 % (0-10); EOSINOPHILS # (AUTO) 0.2 10^3/uL (0.0-0.3); EOSINOPHILS % (AUTO) 2 % (0-10); HEMATOCRIT 43 % (35-52); HEMOGLOBIN 14.6 g/dL (11.5-16.0); LYMPHOCYTES # (AUTO) 3.8 10^3/uL (1.0-4.0); LYMPHOCYTES % (AUTO) 31 % (12-44); MEAN CORPUSCULAR HEMOGLOBIN 30 pg (25-34); MEAN CORPUSCULAR HGB CONC 34 g/dL (32-36); MEAN CORPUSCULAR VOLUME 87 fL (80-99); MEAN PLATELET VOLUME 10.5 fL (9.0-12.2); MONOCYTES % (AUTO) 8 % (0-12); NEUTROPHILS # (AUTO) 7.3 10^3/uL (1.8-7.8); NEUTROPHILS % (AUTO) 59 % (42-75); PLATELET COUNT 216 10^3/uL (130-400); WHITE BLOOD COUNT 12.5 10^3/uL (4.3-11.0)
[2020-10-27] MEDS: RT-ALBUTEROL INHALER HFA (VENTOLIN HFA) 18 GM IH ONE ×2 (20:14→20:15)
[2020-10-27 20:25] LABS: ALBUMIN 4.3 GM/DL (3.2-4.5); CHLORIDE 102 MMOL/L (98-107); POTASSIUM 3.5 MMOL/L (3.6-5.0); SODIUM 135 MMOL/L (135-145)
[2020-10-27 20:26] LABS: CALCIUM 9.2 MG/DL (8.5-10.1)
[2020-10-27 20:27] LABS: GLUCOSE 101 MG/DL (70-105)
[2020-10-27 20:28] LABS: TOTAL PROTEIN 7.3 GM/DL (6.4-8.2)
[2020-10-27 20:29] LABS: BILIRUBIN,TOTAL 0.3 MG/DL (0.1-1.0); CARBON DIOXIDE 24 MMOL/L (21-32)
[2020-10-27 20:31] LABS: ALKALINE PHOSPHATASE 72 U/L (40-136); CREATININE SERUM 0.63 MG/DL (0.60-1.30); GFR ESTIMATED > 60
[2020-10-27 20:32] LABS: BUN/CREATININE RATIO 22
[2020-10-27 20:34] LABS: ALANINE AMINOTRANSFERASE 35 U/L (0-55)
== END 2020-10-27 22:20 | disposition left against medical advice (07) ==
LOC: EDUNIT# 19:24 → ER 19:27
DX: U07.1 COVID-19 (principal); K21.9 Gastro-esophageal reflux disease without esophagitis; Z77.22 Contact with and (suspected) exposure to environmental tobacco smoke (acute) (chronic); Z88.5 Allergy status to narcotic agent; Z88.2 Allergy status to sulfonamides
CPT/HCPCS: 80053; 84484; 85025; 99284; U0002; 36415; 87635

== ENCOUNTER 2021-11-01 09:01 | Outpatient (CLI) | payer MEDICAID ==
[~2021-11-01] VITALS: Ht 154 cm; Wt 51.7 kg
[~2021-11-01 09:01] MED LIST changes: +CYCL10TA25 PO; -CYCL10TA9 PO; -SULF1TAB35 PO
[2021-11-01 09:15] VITALS: BP 103/54
[2021-11-01] MEDS ORDERED: SOTROVIMAB 500 MG/NS 100 ML IVPB IV ONE ×2 (09:15)
[2021-11-01] MEDS ORDERED: ONDANSETRON 4 MG/2 ML (SDV) Z0FRAN IV PRN (09:15)
[2021-11-01] MEDS ORDERED: EPINEPHrine INJECTION 1 MG/ML AMP IM PRN (09:15)
[2021-11-01] MEDS ORDERED: diphenhydrAMINE 50 MG/ML INJ (BENADRYL) IV PRN (09:15)
[2021-11-01] MEDS ORDERED: ACETAMINOPHEN 500 MG TAB (TYLENOL) PO PRN (09:15)
[2021-11-01 10:47] VITALS: BP 92/48
== END 2021-11-01 10:53 ==
LOC: INFUSION 09:01
PROVIDERS: ATTEND Nurse Practitioner Community Health
DX: U07.1 COVID-19 (principal)